=== PATIENT | male | born 1970 | race Caucasian/White ===

== ENCOUNTER 2019-06-28 21:53 | Emergency (ER) | payer SELFPAY ==
[~2019-06-28] VITALS: Ht 175.3 cm; Wt 113.4 kg
[~2019-06-28 21:53] MED LIST: AMLO5TAB2 PO; ASP81TEC PO; ATOR40TA PO
[2019-06-28 21:57] VITALS: BP 166/101
--- NOTE | 2019-06-28 22:14 | ED Chest Pain ---
General Chief Complaint: Chest Pain Stated Complaint: CHEST PAIN, LT ARM PAIN, DIZZY, SOB Source: patient, family History of Present Illness Date Seen by Provider: Jun 28, 2019 Time Seen by Provider: 21:54 Initial Comments 48-year-old male presenting with complaints of left-sided chest pain and shortness of breath that has been going on since Friday of last week. He has had intermittent chest pains off and on throughout the week. This has been worse with activity and exertion. He has a history of hypertension and high cholesterol but does not follow with anyone currently. He does not take any medications for this anymore either. He did have a heart catheter approximately 5 years ago down at [facility] and was told that he had 30-40% blockages but nothing that needed stenting. He has not continued to follow with anyone since then. He stopped taking blood pressure medication because he reports that when he rides his motorcycle or works on his motorcycle that is calming for him and helps his blood pressure come down, so he uses that in place of taking blood pressure medicine. Over the last week he has been having increasing episodes of this pain in the left side of his chest going up into his neck and shoulder and down the left arm. However tonight the episode came on after he was working on a vehicle and that was sharp in nature. With rest and take calm down but then he continues to have aching that has not gone away for him since around 6 or 6:30 PM. He did not try taking anything at home for the pain. Allergies and Home Medications Allergies Coded Allergies: No Known Drug Allergies (Unverified , 04/08/13) Home Medications Amlodipine Besylate 5 Mg Tablet, 5 MG PO DAILY, (Reported) Aspirin 81 Mg Tabec, 81 MG PO DAILY, (Reported) Atorvastatin Calcium 40 Mg Tablet, 40 MG PO HS, (Reported) Patient Home Medication List Home Medication List Reviewed: Yes Review of Systems Review of Systems Constitutional: No chills, No fever EENTM: No Symptoms Reported Respiratory: No Symptoms Reported Cardiovascular: See HPI, Chest Pain Gastrointestinal: No Symptoms Reported Genitourinary: No Symptoms Reported Musculoskeletal: no symptoms reported Skin: no symptoms reported Psychiatric/Neurological: No Symptoms Reported Endocrine: No Symptoms Reported Past Pxdkiol-Asrvmo-Tuaxdg Hx Past Med/Social Hx: Reviewed Nursing Past Med/Soc Hx Patient Social History Recent Foreign Travel: No Contact w/Someone Who Travel: No Past Medical History Surgeries: Yes Cardiac (heart cath 2013), Tonsillectomy Cardiac: Yes High Cholesterol, Hypertension Physical Exam Vital Signs Vital Signs - First Documented 06/28/19 21:57 Temp 98.9 Pulse 92 Resp 22 B/P (MAP) 166/101 (122) Pulse Ox 96 O2 Delivery Room Air Capillary Refill : Height, Weight, BMI Height: '" Weight: lbs. oz. kg; BMI Method: General Appearance: No Apparent Distress, WD/WN, Obese HEENT: PERRL/EOMI, Normal ENT Inspection, Pharynx Normal Neck: Full Range of Motion, Normal Inspection, Non Tender, Supple Respiratory: Chest Non Tender, Lungs Clear, Normal Breath Sounds, No Accessory Muscle Use, No Respiratory Distress Cardiovascular: Regular Rate, Rhythm, No Murmur, Normal Peripheral Pulses Gastrointestinal: Normal Bowel Sounds, No Pulsatile Mass, Non Tender, Soft Extremity: Normal Capillary Refill, Normal Inspection, Normal Range of Motion, Non Tender, No Calf Tenderness Neurologic/Psychiatric: Alert, Oriented x3, No Motor/Sensory Deficits, Normal Mood/Affect, nurse behavioral health care II-XII Norm as Tested Skin: Normal Color, Warm/Dry Progress/Results/Core Measures Results/Orders Lab Results Laboratory Tests Test 06/28/19 22:01 Range/Units White Blood Count 11.3 H 4.3-11.0 10^3/uL Red Blood Count 4.85 4.35-5.85 10^6/uL Hemoglobin 15.2 13.3-17.7 G/DL Hematocrit 44 40-54 % Mean Corpuscular Volume 90 80-99 FL Mean Corpuscular Hemoglobin 31 25-34 PG Mean Corpuscular Hemoglobin Concent 35 32-36 G/DL Red Cell Distribution Width 13.9 10.0-14.5 % Platelet Count 223 130-400 10^3/uL Mean Platelet Volume 10.1 7.4-10.4 FL Neutrophils (%) (Auto) 59 42-75 % Lymphocytes (%) (Auto) 34 12-44 % Monocytes (%) (Auto) 5 0-12 % Eosinophils (%) (Auto) 2 0-10 % Basophils (%) (Auto) 0 0-10 % Neutrophils # (Auto) 6.6 1.8-7.8 X 10^3 Lymphocytes # (Auto) 3.9 1.0-4.0 X 10^3 Monocytes # (Auto) 0.6 0.0-1.0 X 10^3 Eosinophils # (Auto) 0.2 0.0-0.3 10^3/uL Basophils # (Auto) 0.1 0.0-0.1 10^3/uL Prothrombin Time 12.8 12.2-14.7 SEC INR Comment 0.9 0.8-1.4 Activated Partial Thromboplast Time 29 24-35 SEC Sodium Level 139 135-145 MMOL/L Potassium Level 3.6 3.6-5.0 MMOL/L Chloride Level 98 98-107 MMOL/L Carbon Dioxide Level 23 21-32 MMOL/L Anion Gap 18 H 5-14 MMOL/L Blood Urea Nitrogen 13 7-18 MG/DL Creatinine 1.29 0.60-1.30 MG/DL Estimat Glomerular Filtration Rate 59 BUN/Creatinine Ratio 10 Glucose Level 142 H 70-105 MG/DL Calcium Level 10.0 8.5-10.1 MG/DL Corrected Calcium 9.6 8.5-10.1 MG/DL Magnesium Level 1.9 1.6-2.4 MG/DL Total Bilirubin 0.3 0.1-1.0 MG/DL Aspartate Amino Transf (AST/SGOT) 36 H 5-34 U/L Alanine Aminotransferase (ALT/SGPT) 59 H 0-55 U/L Alkaline Phosphatase 83 40-136 U/L Troponin I < 0.30 <0.30 NG/ML Pro-B-Type Natriuretic Peptide 29.7 <75.0 PG/ML Total Protein 7.1 6.4-8.2 GM/DL Albumin 4.5 3.2-4.5 GM/DL Lipase 81 H 8-78 U/L My Orders Orders - PEDRO PERERA MD Cbc With Automated Diff (06/28/19 22:07) Magnesium (06/28/19 22:07) Chest 1 View Ap/Pa Only (06/28/19 22:07) Ekg Tracing (06/28/19 22:07) Comprehensive Metabolic Panel (06/28/19 22:07) Protime With Inr (06/28/19 22:07) Partial Thromboplastin Time (06/28/19 22:07) O2 (06/28/19 22:07) Monitor-Rhythm Ecg Trace Only (8/19/19 22:07) Aspirin Chewable Tablet (Baby Aspirin Ch (06/28/19 22:15) Nitroglycerin 0.4 Mg Btl 25's (Nitrostat (06/28/19 22:15) Ed Iv/Invasive Line Start (06/28/19 22:07) Lipase (06/28/19 22:07) Troponin I (06/28/19 22:07) Probnp Fs (06/28/19 22:07) Ekg Tracing (06/28/19 22:52) Nitroglycerin Ointment (Nitrobid Ointme (06/28/19 23:46) Metoprolol Succinate (Xl) Tab (Toprol Xl (06/28/19 23:47) Medications Given in ED Current Medications Medications Dose Ordered Sig/Moni Route Start Time Stop Time Status Last Admin Dose Admin Aspirin 324 mg ONCE ONCE PO 06/28/19 22:15 06/28/19 22:16 DC 06/28/19 22:24 324 MG Nitroglycerin 0.4 mg UD PRN SL 06/28/19 22:15 06/28/19 22:24 0.4 MG Vital Signs/I&O 06/28/19 06/28/19 21:57 21:57 Temp 98.9 Pulse 92 Resp 22 B/P (MAP) 166/101 (122) Pulse Ox 96 O2 Delivery Room Air Room Air Progress Progress Note #1: Progress Note Check ECG with CXR, labs. ECG does not show acute ST elevation but has T wave flattening. Will give 324 mg of aspirin and NTG sublingual to help with aching in chest and his blood pressure while waiting on labs to see if there are any changes with his enzymes. Evaluate CXR for cardiomegaly or effusions or pathology of lungs since he is also a smoker. Progress Note #2: Progress Note His labs were not showing any elevation of his initial troponin. His CBC and chemistry were also stable. His pain did improve when he was given aspirin and sublingual nitroglycerin. He states that the pain went away. However the aching returned as the nitroglycerin wore off. He did have improved blood pressure while the nitroglycerin was in his system. Will look at admit for unstable angina since his pain does come on at rest and with activity. Pt agreed to admit but was asking about going outside to smoke. i advised him I could not allow that but that I could get him a nicotine patch. he refused the patch and stated he would just wait. He was willing to be admitted and go to [facility] for admit and cardiology eval. I spoke with Dr. Perez and he accepted the pt for admit Progress Note #3: Time: 01:00 Progress Note While I was dealing with a critical patient that required my attention at his bedside for medical management the pt told the nursing staff that he was leaving because he felt better and it was more important that he go to work. Despite the staffs best efforts to change his mind and explain the risks versus the benefits of being admitted or leaving against medical advice the patient still demanded to leave and refused to stay. he did not want to wait to have me speak with him any further. I was unable to step away from the critical patient as he was very sick and requiring acute medical management at the bedside. Initial ECG Impression Date: Jun 28, 2019 Initial ECG Impression Time: 21:56 Initial ECG Rate: 91 Initial ECG Rhythm: Normal Sinus Initial ECG Comparisson: No Previous ECG Available Comment Sinus rhythm with a heart rate 91 bpm. He has nonspecific T-wave flattening especially in the lateral leads. He has a IL interval of 134 ms. QT interval of 360 ms and a QT corrected interval of 443 ms. There is no acute ST elevation. He has no prior tracing available for comparison. Diagnostic Imaging Diagonstic Imaging: Xray Plain Films/CT/US/NM/MRI: chest Comments On my review of his 1 view CXR he had no definite infiltrate. No cardiomegaly or effusion. Reviewed: Reviewed by Me Departure Communication (Admissions) Time/Spoke to Admitting Phy: 00:[address] Perez for the Hospitalist service at 0009 and he accepted the pt for admit to [facility]. He was ok with the pt getting Aspirin, Metoprolol and Nitropaste. He did not feel it was necessary for Lovenox as the pt was pain free and would be seen with Cardiology in a few hours Impression Primary Impression: Left against medical advice Additional Impressions: Unstable angina Hypertension Qualified Codes: I10 - Essential (primary) hypertension Tobacco abuse Disposition: 07 AGAINST MEDICAL ADVICE Condition: Stable Admissions Decision to Admit Reason: Admit from ER (General) Decision to Admit/Date: Jun 29, 2019 Time/Decision to Admit Time: 00:09 Departure-Patient Inst. Referrals: DANA CLARK APRN (PCP) Primary Care Physician PEDRO PERERA MD Jun 28, 2019 22:14
[2019-06-28] MEDS ORDERED: ASPIRIN 81 MG CHEW (CHILDREN'S ASA) PO ONE (22:15)
[2019-06-28] MEDS ORDERED: NITROGLYCERIN 0.4 MG SL TABS BTL 25'S SL PRN (22:15)
[2019-06-28 22:16] LABS: HEMATOCRIT 44 % (40-54); HEMOGLOBIN 15.2 G/DL (13.3-17.7); MEAN CORPUSCULAR HEMOGLOBIN 31 PG (25-34); MEAN CORPUSCULAR HGB CONC 35 G/DL (32-36); MEAN CORPUSCULAR VOLUME 90 FL (80-99); MEAN PLATELET VOLUME 10.1 FL (7.4-10.4); PLATELET COUNT 223 10^3/uL (130-400); RED CELL DISTRIBUTION WIDTH 13.9 % (10.0-14.5); WHITE BLOOD COUNT 11.3 10^3/uL (4.3-11.0)
[2019-06-28 22:17] LABS: BASOPHILS # (AUTO) 0.1 10^3/uL (0.0-0.1); BASOPHILS % (AUTO) 0 % (0-10); EOSINOPHILS # (AUTO) 0.2 10^3/uL (0.0-0.3); EOSINOPHILS % (AUTO) 2 % (0-10); LYMPHOCYTES # (AUTO) 3.9 X 10^3 (1.0-4.0); LYMPHOCYTES % (AUTO) 34 % (12-44); MONOCYTES # (AUTO) 0.6 X 10^3 (0.0-1.0); MONOCYTES % (AUTO) 5 % (0-12); NEUTROPHILS # (AUTO) 6.6 X 10^3 (1.8-7.8); NEUTROPHILS % (AUTO) 59 % (42-75)
[2019-06-28 22:26] LABS: INR 0.9 (0.8-1.4); PROTHROMBIN TIME PATIENT 12.8 SEC (12.2-14.7)
[2019-06-28 22:42] LABS: POTASSIUM 3.6 MMOL/L (3.6-5.0)
[2019-06-28 22:43] LABS: ALBUMIN 4.5 GM/DL (3.2-4.5); BILIRUBIN,TOTAL 0.3 MG/DL (0.1-1.0); CREATININE SERUM 1.29 MG/DL (0.60-1.30); MAGNESIUM 1.9 MG/DL (1.6-2.4); TOTAL PROTEIN 7.1 GM/DL (6.4-8.2)
[2019-06-28] MEDS ORDERED: NITROGLYCERIN 2% OINT 1 GM UNIT DOSE PACKET TOP STA (23:46)
--- NOTE | 2019-06-29 01:00 | NUR ---
Patient pulled this RN into the room and advised that he wants to leave AMA. Patient states that he can't afford to miss work. This RN advises the patient of risks, up to and including , and benefits of inpatient treatment. Patient acknowledges verbally his understanding of risks and benefits. AMA papers are signed, IV is taken out, Nitro paste is taken off.
--- NOTE | 2019-06-29 08:30 | NUR ---
PATIENT DID NOT ARRIVE TO THE FLOOR, MED REC WAS UNABLE TO BE COMPLETED.
--- NOTE | 2019-06-29 08:34 | Diagnostic Imaging Report ---
INDICATION: Chest pain. Lungs are clear. The heart and vessels normal. No effusion or pneumothorax. IMPRESSION: No acute appearing abnormality. Dictated by: Dictated on workstation # [id number]
== END 2019-06-29 01:11 | disposition left against medical advice (07) ==
LOC: EDUNIT# 21:53 → ER FS 21:54 → 4TH 06-29 00:09 → UNDOADMOB 06-29 00:09 → INTOOBSV 06-29 08:04 → OBSVTOIN 06-29 08:04 → 4TH 06-29 08:30
DX: I20.0 Unstable angina (principal); I10 Essential (primary) hypertension; E78.00 Pure hypercholesterolemia, unspecified; F17.200 Nicotine dependence, unspecified, uncomplicated; Z91.14 Patient's other noncompliance with medication regimen; Z79.82 Long term (current) use of aspirin; Z95.9 Presence of cardiac and vascular implant and graft, unspecified; Z90.89 Acquired absence of other organs
CPT/HCPCS: 36415; 71045; 80053; 83690; 83735; 83880; 84484; 85025; 85610; 85730; 93005; 93041

== ENCOUNTER 2019-11-05 09:35 | Observation (INO) | payer MEDICAID ==
[~2019-11-05] VITALS: Ht 175.6 cm; Wt 110.4 kg
[2019-11-05] MEDS ORDERED: FAMOTIDINE 20MG/2ML IV (PEPCID) IV STA (09:58)
[2019-11-05] MEDS ORDERED: LIDOCAINE 2% VISCOUS 15 ML UDC PO ONE (10:00)
[2019-11-05] MEDS ORDERED: ASPIRIN 81 MG CHEW (CHILDREN'S ASA) PO ONE (10:00)
[2019-11-05] MEDS ORDERED: ANTACID SUSP 30 ML UDC (MYLANTA) PO ONE (10:00)
[2019-11-05 10:05] LABS: WHITE BLOOD COUNT 10.2 10^3/uL (4.3-11.0)
[2019-11-05 10:06] LABS: BASOPHILS # (AUTO) 0.1 10^3/uL (0.0-0.1); BASOPHILS % (AUTO) 1 % (0-10); EOSINOPHILS # (AUTO) 0.2 10^3/uL (0.0-0.3); EOSINOPHILS % (AUTO) 2 % (0-10); HEMATOCRIT 44 % (40-54); HEMOGLOBIN 15.3 G/DL (13.3-17.7); LYMPHOCYTES # (AUTO) 2.7 X 10^3 (1.0-4.0); LYMPHOCYTES % (AUTO) 26 % (12-44); MEAN CORPUSCULAR HEMOGLOBIN 31 PG (25-34); MEAN CORPUSCULAR HGB CONC 35 G/DL (32-36); MEAN CORPUSCULAR VOLUME 91 FL (80-99); MEAN PLATELET VOLUME 9.9 FL (7.4-10.4); MONOCYTES # (AUTO) 0.5 X 10^3 (0.0-1.0); MONOCYTES % (AUTO) 5 % (0-12); NEUTROPHILS # (AUTO) 6.7 X 10^3 (1.8-7.8); NEUTROPHILS % (AUTO) 66 % (42-75); PLATELET COUNT 225 10^3/uL (130-400); RED CELL DISTRIBUTION WIDTH 13.5 % (10.0-14.5)
--- NOTE | 2019-11-05 10:17 | ED Chest Pain ---
General Chief Complaint: Chest Pain Stated Complaint: CHEST PAIN; SOB Source: patient Exam Limitations: no limitations (SELENE GARCIA MED STUDENT) Source: patient Exam Limitations: no limitations (MADINA JIMENEZ MD) History of Present Illness Date Seen by Provider: Nov 05, 2019 Time Seen by Provider: 10:01 Initial Comments Pt ambulates into ED with CC of chest pain beginning one hour ago. Describes pain as constant pressure over left sternal border that radiates through to his shoulder blade. Has never experienced this pain before. At onset pain radiated to shoulder but lasted only a second. Denies fever, chills, diaphoresis, nausea, vomiting. Has an appointment with Dr. Lopez Isai. 2019 after another episode of chest pain that occurred Jun 28 2020, where patient left AMA to go back to work after resolution of pain. Timing/Duration: 1 hour Severity/Quality: severe, aching, pressure Location: substernal Radiation: arms, shoulders Activities at Onset: none Prior CP/Workup: angina, cardiac cath Modifying Factors: worse with movement ASA po RESEARCH LABORATORY MANAGER: No NTG SL RESEARCH LABORATORY MANAGER: No Associated Symptoms: No abdominal pain; back pain; No diaphoresis, No fever/chills, No headache, No heartburn, No nausea/vomiting; shortness of breath (SELENE GARCIA MED STUDENT) Timing/Duration: 1 hour Severity/Quality: severe, aching, pressure Location: substernal, central Radiation: shoulders (left), back (shoulder blade) Prior CP/Workup: angina, cardiac cath ASA po RESEARCH LABORATORY MANAGER: No NTG SL RESEARCH LABORATORY MANAGER: No Associated Symptoms: No diaphoresis, No nausea/vomiting; shortness of breath (MADINA JIMENEZ MD) Allergies and Home Medications Allergies Coded Allergies: No Known Drug Allergies (Unverified , 04/08/13) Home Medications Amlodipine Besylate 5 Mg Tablet, 5 MG PO DAILY, (Reported) Aspirin 81 Mg Tabec, 81 MG PO DAILY, (Reported) Atorvastatin Calcium 40 Mg Tablet, 40 MG PO HS, (Reported) Patient Home Medication List Home Medication List Reviewed: Yes (SELENE GARCIA MED STUDENT) Home Medication List Reviewed: Yes (MADINA JIMENEZ MD) Review of Systems Review of Systems Constitutional: No chills, No diaphoresis, No fever EENTM: No Eye Pain, No Ear Pain, No Nose Pain, No Throat Pain Respiratory: Cough (current smoker ), Shortness of Air Cardiovascular: See HPI, Chest Pain; Denies Palpitations Gastrointestinal: Denies Abdominal Pain, Denies Constipated, Denies Diarrhea, Denies Nausea, Denies Vomiting Genitourinary: Denies Discharge, Denies Incontinence, Denies Pain Musculoskeletal: No back pain, No joint pain Skin: No lesions, No lumps, No rash Psychiatric/Neurological: Denies Anxiety, Denies Depressed, Denies Headache (SELENE GARCIAMED STUDENT) Constitutional: see HPI Respiratory: See HPI Cardiovascular: Chest Pain; Denies Irregular Heart Rate, Denies Lightheadedness Gastrointestinal: No Symptoms Reported Musculoskeletal: see HPI, back pain; No neck pain (MADINA JIMENEZ MD) All Other Systems Reviewed Negative Unless Noted: Yes (MADINA JIMENEZ MD) Past Kmsnuvp-Ngspff-Pjrhkm Hx Past Med/Social Hx: Reviewed Nursing Past Med/Soc Hx (MADINA JIMENEZ MD) Patient Social History Alcohol Use: Occasionally Uses Recreational Drug Use: No Smoking Status: Current Everyday Smoker 2nd Hand Smoke Exposure: Yes Recent Foreign Travel: No Physical Abuse: No Sexual Abuse: No Mistreated: No Fear: No (SELENE GARCIA MED STUDENT) Seasonal Allergies Seasonal Allergies: No (SELENE GARCIA MED STUDENT) Past Medical History Surgeries: Yes Cardiac, Tonsillectomy Respiratory: No Cardiac: Yes High Cholesterol, Hypertension Neurological: No Genitourinary: No Gastrointestinal: No Musculoskeletal: No Endocrine: No HEENT: No Cancer: No Psychosocial: No Integumentary: No (SELENE GARCIA MED STUDENT) Family Medical History Reviewed Nursing Family Hx (MADINA JIMENEZ MD) CAD Under 55 Years Old (uncle at 39, multiple family members at age 50 with heart attack.) (MADINA JIMENEZ MD) Physical Exam Vital Signs Vital Signs - First Documented 11/05/19 09:40 Temp 35.5 Pulse 83 Resp 16 B/P (MAP) 148/94 (112) Pulse Ox 98 O2 Delivery Room Air (MADINA JIMENEZ MD) Vital Signs Capillary Refill : (SELENE GARCIAMED STUDENT) Height, Weight, BMI Height: 5'9.00" Weight: 250lbs. 0oz. [age]yo; BMI Method:Stated General Appearance: WD/WN, Mild Distress HEENT: Pharynx Normal, Moist Mucous Membranes Neck: Non Tender, Supple Respiratory: Chest Non Tender, Lungs Clear, Normal Breath Sounds, No Accessory Muscle Use, No Respiratory Distress Cardiovascular: Regular Rate, Rhythm, No Edema, No Gallop, No Murmur, Normal Peripheral Pulses, Other (auscultated gurgling at 5th intercostal space left sternal border ) Gastrointestinal: Normal Bowel Sounds, Soft, Tenderness (epigastric tenderness to palpation ) Extremity: No Calf Tenderness, No Pedal Edema Neurologic/Psychiatric: Alert, Oriented x3 Skin: Normal Color, Warm/Dry Lymphatic: No Adenopathy (anterior/posterior cervical, supra/infraclavicular ) (SELENE GARCIA,MED STUDENT) General Appearance: WD/WN, Mild Distress Neck: Non Tender, Supple Respiratory: Lungs Clear, Normal Breath Sounds Cardiovascular: Regular Rate, Rhythm, No Murmur Gastrointestinal: Soft, Tenderness (epigastric tenderness to palpation ) Extremity: No Calf Tenderness, No Pedal Edema Neurologic/Psychiatric: Alert, Oriented x3 Skin: Normal Color, Warm/Dry (MADINA JIMENEZ MD) Progress/Results/Core Measures Results/Orders Lab Results Laboratory Tests Test 11/05/19 09:50 11/05/19 09:55 11/05/19 11:50 Range/Units D-Dimer 0.20 0.00-0.49 UG/ML White Blood Count 10.2 4.3-11.0 10^3/uL Red Blood Count 4.86 4.35-5.85 10^6/uL Hemoglobin 15.3 13.3-17.7 G/DL Hematocrit 44 40-54 % Mean Corpuscular Volume 91 80-99 FL Mean Corpuscular Hemoglobin 31 25-34 PG Mean Corpuscular Hemoglobin Concent 35 32-36 G/DL Red Cell Distribution Width 13.5 10.0-14.5 % Platelet Count 225 130-400 10^3/uL Mean Platelet Volume 9.9 7.4-10.4 FL Neutrophils (%) (Auto) 66 42-75 % Lymphocytes (%) (Auto) 26 12-44 % Monocytes (%) (Auto) 5 0-12 % Eosinophils (%) (Auto) 2 0-10 % Basophils (%) (Auto) 1 0-10 % Neutrophils # (Auto) 6.7 1.8-7.8 X 10^3 Lymphocytes # (Auto) 2.7 1.0-4.0 X 10^3 Monocytes # (Auto) 0.5 0.0-1.0 X 10^3 Eosinophils # (Auto) 0.2 0.0-0.3 10^3/uL Basophils # (Auto) 0.1 0.0-0.1 10^3/uL Prothrombin Time 12.5 12.2-14.7 SEC INR Comment 0.9 0.8-1.4 Activated Partial Thromboplast Time 27 24-35 SEC Sodium Level 139 135-145 MMOL/L Potassium Level 3.8 3.6-5.0 MMOL/L Chloride Level 101 98-107 MMOL/L Carbon Dioxide Level 24 21-32 MMOL/L Anion Gap 14 5-14 MMOL/L Blood Urea Nitrogen 15 7-18 MG/DL Creatinine 1.38 H 0.60-1.30 MG/DL Estimat Glomerular Filtration Rate 55 BUN/Creatinine Ratio 11 Glucose Level 120 H 70-105 MG/DL Calcium Level 9.6 8.5-10.1 MG/DL Corrected Calcium 8.5-10.1 MG/DL Magnesium Level 2.0 1.6-2.4 MG/DL Total Bilirubin 0.3 0.1-1.0 MG/DL Aspartate Amino Transf (AST/SGOT) 32 5-34 U/L Alanine Aminotransferase (ALT/SGPT) 52 0-55 U/L Alkaline Phosphatase 114 40-136 U/L Myoglobin 75.8 10.0-92.0 NG/ML Troponin I < 0.30 < 0.30 <0.30 NG/ML Total Protein 7.2 6.4-8.2 GM/DL Albumin 4.7 H 3.2-4.5 GM/DL Lipase 66 8-78 U/L (MADINA JIMENEZ MD) My Orders Orders - MADINA JIMENEZ MD Cbc With Automated Diff (11/05/19 09:50) Magnesium (11/05/19 09:50) Chest 1 View Ap/Pa Only (11/05/19 09:50) Ekg Tracing (11/05/19 09:50) Comprehensive Metabolic Panel (11/05/19 09:50) Myoglobin Serum (11/05/19 09:50) Protime With Inr (11/05/19 09:50) Partial Thromboplastin Time (11/05/19 09:50) O2 (11/05/19 09:50) Monitor-Rhythm Ecg Trace Only (11/05/19 09:50) Lipid Panel (11/06/19 06:00) Aspirin Chewable Tablet (Baby Aspirin Ch (11/05/19 10:00) Ed Iv/Invasive Line Start (11/05/19 09:50) Lipase (11/05/19 09:50) Fibrin Degradation Products (11/05/19 09:50) Troponin I Fs (11/05/19 09:50) Lidocaine 2% Viscous 15 Ml (Xylocaine Vi (11/05/19 10:00) Antacid Suspension (Mylanta Suspension (11/05/19 10:00) Famotidine Injection (Pepcid Injection) (11/05/19 09:58) Nitroglycerin 0.4 Mg Btl 25's (Nitrostat (11/05/19 11:00) Ketorolac Injection (Toradol Injection) (11/05/19 10:53) Troponin I Fs (11/05/19 11:50) Nicotine Patch (Nicoderm Patch) (11/05/19 13:00) (MADINA JIMENEZ MD) Medications Given in ED Current Medications Medications Dose Ordered Sig/Moni Route Start Time Stop Time Status Last Admin Dose Admin Al Hydrox/Mg Hydrox/Simethicone 30 ml ONCE ONCE PO 11/05/19 10:00 11/05/19 10:01 DC 11/05/19 10:06 30 ML Aspirin 324 mg ONCE ONCE PO 11/05/19 10:00 11/05/19 10:01 DC 11/05/19 10:06 324 MG Lidocaine HCl 15 ml ONCE ONCE PO 11/05/19 10:00 11/05/19 10:01 DC 11/05/19 10:07 15 ML Nitroglycerin 0.4 mg UD PRN SL 11/05/19 11:00 11/05/19 11:09 0.4 MG (MADINA JIMENEZ MD) Vital Signs/I&O 11/05/19 11/05/19 11/05/19 09:40 10:30 12:41 Temp 35.5 Pulse 83 67 Resp 16 18 B/P (MAP) 148/94 (112) 125/81 (96) Pulse Ox 98 97 O2 Delivery Room Air Room Air (MADINA JIMENEZ MD) Progress Progress Note : Time: 10:20 Progress Note Seen evaluated. Initiated chest pain protocol. Ordered EKG, CXR, PT/INR, CBC, CMP, BNP, troponin, Mg, myoglobin, d-dimer and lipase. Administering 325 chewable ASA, GI cocktail and 20mg famotidine IV. (SELENE GARCIA,MED STUDENT) Progress Note : Progress Note Seen and evaluated the patient and agree with above except as indicated. Have directed the plan of care. Patient is here with acute onset of central to the left sternal border chest pain that radiates to the left shoulder blade. He has not had pain like this before although has been worked up for chest pain. R ecords review reveals that he had heart catheterization in 2012 with 30-40% blockage LAD. Seen earlier this year for chest pain and left AMA. He does have appointment with Dr. Lopez on November 25 at 9 AM. He has not taken anything for the pain. Does have strong family history and does smoke. Physical exam as above. Plan as above with chest pain order set and aspirin 324 mg by mouth. We will try GI cocktail and 20 mg of famotidine IV. 1100: Patient still having pain. Toradol 30 mg IV and nitroglycerin sublingual ordered. Patient's blood pressure currently 153/98 with heart rate is 75. No ectopy noted. Initial troponin was 0.30 and d-dimer was negative. At a minimum we will need to repeat his troponin evaluation as I do have concerns as this was not completely negative and is reasonable. This was discussed with patient and family who agree. Monitor patient. 1310: Repeat troponin negative. Initial troponin was actually less than 0.300 well. Laboratory reported error and has fixed on report. Patient still with some chest pressure that is very mild. He had the greatest relief from nitroglycerin earlier. Given his strong family history, we will admit for further evaluation. I discussed the case with Dr. Clay, who accepts patient in consultation. 1315 I have discussed the case with Dr. Olivarez as patient for admission, observation status. NicoDerm 21 mg patch ordered. Patient and family agree with plan. (MADINA JIMENEZ MD) Initial ECG Impression Date: Nov 05, 2019 Initial ECG Impression Time: 10:25 Initial ECG Rate: 85 Initial ECG Rhythm: Normal Sinus Initial ECG Intervals: Normal Initial ECG Impression: Nonspecific Changes (T wave flattening V5, V6) (SELENE GARCIA,MED STUDENT) Comment Sinus rhythm with nonspecific T wave abnormalities. No evidence of ST elevation AR. Normal axis. Similar to 06/28/19. Interpreted by me. (MADINA JIMENEZ MD) Diagnostic Imaging Diagonstic Imaging: Xray Plain Films/CT/US/NM/MRI: chest Comments [facility] [place], [place] NAME: VERO JEAN [facility] REC#: [id number] PT STATUS: REG ER : 1970 PHYSICIAN: MADINA JIMENEZ MD ADMIT DATE: 11/05/19/ER FS Draft Date of Exam:11/05/19 CHEST 1 VIEW AP/PA ONLY INDICATION: Chest pain. Time of exam 9:56 AM Correlation is made with prior chest from 06/28/2019. The heart size is normal. The pulmonary vascularity is unremarkable. The lungs are clear. No infiltrate, effusion or pneumothorax is detected. Impression: No acute cardiopulmonary process is detected. Dictated on workstation # [id number] Dict: 11/05/19 1024 Trans: 11/05/19 1026 [facility] [id number] Interpreted by: KEZIA CHI MD Electronically signed by: (SELENE GARCIA,MED STUDENT) Plain Films/CT/US/NM/MRI: chest (MADINA JIMENEZ MD) Departure Communication (Admissions) Time/Spoke to Admitting Phy: 13:15 Time/Spoke to Consulting Phy: 13:10 (MADINA JIMENEZ MD) Impression Primary Impression: Chest pain Qualified Codes: R07.9 - Chest pain, unspecified Disposition: ADMITTED INPATIENT Condition: Stable Admissions Decision to Admit Reason: Admit from ER (General) Decision to Admit/Date: Nov 05, 2019 Time/Decision to Admit Time: 13:10 (MADINA JIMENEZ MD) Departure-Patient Inst. Referrals: JESSICA BURKETT APRN (PCP) Primary Care Physician SELENE GARCIAMED STUDENT Nov 05, 2019 10:17 MADINA JIMENEZ MD Nov 05, 2019 11:01
--- NOTE | 2019-11-05 10:27 | Diagnostic Imaging Report ---
INDICATION: Chest pain. Time of exam 9:56 AM Correlation is made with prior chest from 06/28/2019. The heart size is normal. The pulmonary vascularity is unremarkable. The lungs are clear. No infiltrate, effusion or pneumothorax is detected. Impression: No acute cardiopulmonary process is detected. Dictated by: Dictated on workstation # [id number]
[2019-11-05 10:32] LABS: ALANINE AMINOTRANSFERASE 52 U/L (0-55); ALBUMIN 4.7 GM/DL (3.2-4.5); ALKALINE PHOSPHATASE 114 U/L (40-136); BILIRUBIN,TOTAL 0.3 MG/DL (0.1-1.0); BUN/CREATININE RATIO 11; CALCIUM 9.6 MG/DL (8.5-10.1); CARBON DIOXIDE 24 MMOL/L (21-32); CHLORIDE 101 MMOL/L (98-107); CREATININE SERUM 1.38 MG/DL (0.60-1.30); GFR ESTIMATED 55; GLUCOSE 120 MG/DL (70-105); LIPASE 66 U/L (8-78); POTASSIUM 3.8 MMOL/L (3.6-5.0); SODIUM 139 MMOL/L (135-145); TOTAL PROTEIN 7.2 GM/DL (6.4-8.2)
[2019-11-05 10:41] LABS: INR 0.9 (0.8-1.4); PROTHROMBIN TIME PATIENT 12.5 SEC (12.2-14.7)
[2019-11-05] MEDS ORDERED: KETOROLAC 30 MG/ML VIAL IVP STA (10:53)
[2019-11-05] MEDS ORDERED: NITROGLYCERIN 0.4 MG SL TABS BTL 25'S SL PRN ×2 (11:00→16:30)
[2019-11-05 12:41] VITALS: BP 125/81
[2019-11-05] MEDS ORDERED: NICOTINE 21 MG (NICODERM) PATCH TD ONE (13:00)
--- NOTE | 2019-11-05 13:49 | NUR ---
ATTEMPTED TO CALL REPORT TO 4TH FLOOR A THIS TIME.
--- NOTE | 2019-11-05 14:32 | NUR ---
VERO JEAN admitted to room Z4TH-2, with an admitting diagnosis of CHEST PAIN, on 11/05/19 from [facility] [place] via [facility], accompanied by EMS.VERO JEAN introduced to surroundings, call light, bed controls, phone, TV, temperature control, lights, meal times, smoking policy, visitor policy, side rail policy, bathrooms and showers. Patient Rights given to patient in the handbook. VERO JEAN verbalizes understanding that [facility] is not responsible for the loss or damage to any personal effects or valuables that are kept in the patients posession during their hospitalization. The following Patient Care Plans were discussed with the PT: Discharge Planning,ALT CARDIOPULM TISSUE PERF, PAIN, ACT INTOL, AND ANXIETY. VREO JEAN verbalizes understanding of Interdisciplinary Patient Education. Patient and/or family were informed about the Rapid Response Team and its purpose. CAME TO THE FLOOR WITH L AC SL IV SITE -- VOICED PRESSURE TO L UPPER CHEST 5-6 INCHES ABOVE NIPPLE
[2019-11-05 14:40] VITALS: BP 134/94
[2019-11-05] MEDS ORDERED: DIAZ5TAB3 PO (15:35)
[2019-11-05] MEDS ORDERED: ATOR20TA66 PO (15:35)
[2019-11-05] MEDS ORDERED: BUPR300T51 PO (15:35)
[2019-11-05] MEDS ORDERED: METO-387 PO (15:35)
[2019-11-05] MEDS ORDERED: HYDR-3816 PO (15:35)
[2019-11-05 15:46] VITALS: BP 129/84
[2019-11-05] MEDS ORDERED: ASPI-983 PO (15:56)
[2019-11-05] MEDS ORDERED: MULT1TAB69 PO (16:01)
--- NOTE | 2019-11-05 16:01 | NUR ---
SPOKE WITH THE PATIENT ABOUT HIS MEDICATIONS. HE HAD HIS BOTTLES WITH HIM EXCEPT FOR HIS MTV. I COMPARED THE BOTTLES HE HAS WITH THE EXT MED HX. HE STATES HE TAKES ASPIRIN 81MG DAILY AND A MTV DAILY OTC.
--- NOTE | 2019-11-05 16:07 | NUR ---
DR SPENCE ON FLOOR AND ORDERED A TROPIN NOW AND ONE IN AM -- PLANS TO DO RADIAL HEART CATH IN AM
[2019-11-05] MEDS ORDERED: CATHETER FLUSH 10 ML SYR IV PRN (16:30)
[2019-11-05] MEDS ORDERED: morphine INJ 4 MG/ML 1 ML (VIAL/SYRINGE) IV PRN (16:30)
[2019-11-05] MEDS ORDERED: ONDANSETRON 4 MG/2 ML (SDV) Z0FRAN IV PRN (16:30)
[2019-11-05] MEDS: NS IV 1000 ML 1,000 ML IV SCH (17:07)
--- NOTE | 2019-11-05 17:55 | Consultation-Cardiology ---
HPI-Cardiology Cardiology Consultation: Date of Consultation 11/05/19 Date of Admission Attending Physician Ruby Jarvis MD Admitting Physician Markus Jesus Aprn Consulting Physician Reji CLAY MD HPI: Time Seen by a Provider: 15:00 Chief Complaint: Chest pain This is a 49-year-old gentleman with history of active smoking and significant premature family history in the family. History of hypertension and hyperlipidemia. He presents with chest pain for one hour. Substernal. Pressure-like sensation. Radiates to the left shoulder. No exacerbating or relieving factors. Moderate intensity. No other cardiac symptoms. Improved with nitroglycerin however not completely gone. He's had coronary angiography 6 years ago which showed mild LAD disease. Review of Systems-Cardiology Review of Systems Constitutional: As described under HPI; No As described under HPI, No no symptoms reported, No chills, No fever, No lightheadedness Eyes: No As described under HPI, No no symptoms reported, No blindness, No blurred vision, No contact lenses, No drainage, No decreased acuity, No foreign body sensation, No pain, No vision change Ears/Nose/Throat: No As described under HPI, No no symptoms reported, No chronic hearing loss, No ear discharge, No ear pain, No nasal drainage, No ulcerations Respiratory: No no symptoms reported; As described under HPI; No As described under HPI, No cough, No orthopnea, No shortness of breath, No SOB with excertion Cardiovascular: No no symptoms reported; As described under HPI; No As described under HPI; chest pain; No edema, No irregular heart rate, No lightheadedness, No palpitations Gastrointestinal: No no symptoms reported, No As described under HPI, No abdomen distended, No abdominal pain, No blood streaked bowels, No constipation, No diarrhea, No nausea, No vomiting, No stool coloration changes Genitourinary: No As described under HPI, No burning, No dysuria, No discharge, No frequency, No flank pain, No hematuria, No urgency Skin: No rash, No skin related problems, No ulcerations Psychiatric/Neurological: No anxiety, No depression, No seizure, No focal weakness, No syncope Hematologic: No bleeding abnormalities All Other Systems Reviewed Negative Unless Noted: Yes PDD-Damguc-Cpiswz Hx Patient Social History Alcohol Use: Occasionally Uses Recreational Drug Use: No Smoking Status: Current Everyday Smoker 2nd Hand Smoke Exposure: Yes Recent Foreign Travel: No Recent Infectious Disease Expo: No Hospitalization with Isolation: Denies Physical Abuse Screen: No Sexual Abuse: No Past Medical History PMH As described under Assessment. Allergies and Home Medications Allergies Coded Allergies: No Known Drug Allergies (Unverified , 04/08/13) Home Medications Aspirin 81 Mg Tablet.dr, 81 MG PO HS, (Reported) Atorvastatin Calcium 20 Mg Tablet, 20 MG PO HS, (Reported) Bupropion HCl 300 Mg Tab.er.24h, 300 MG PO HS, (Reported) Diazepam 5 Mg Tablet, 5 MG PO HS PRN for ANXIETY, (Reported) Hydrocodone/Acetaminophen 1 Each Tablet, 1 TAB PO Q6H PRN for PAIN-MODERATE (5- 7), (Reported) Metoprolol Succinate 25 Mg Tab.er.24h, 25 MG PO HS, (Reported) Multivitamin 1 Each Tablet, 1 TAB PO HS, (Reported) Patient Home Medication List Home Medication List Reviewed: Yes Physical Exam-Cardiology Physical Exam Vital Signs/I&O 11/05/19 11/05/19 11/05/19 11/05/19 09:40 10:30 12:41 13:24 Temp 35.5 36.2 Pulse 83 67 72 Resp 16 18 18 B/P (MAP) 148/94 (112) 125/81 (96) 118/77 Pulse Ox 98 97 99 O2 Delivery Room Air Room Air Room Air 11/05/19 11/05/19 11/05/19 11/05/19 14:35 14:40 15:46 15:47 Temp 36.3 36.6 Pulse 64 69 79 Resp 20 18 B/P (MAP) 134/94 129/84 (99) Pulse Ox 98 98 100 O2 Delivery Room Air Room Air Room Air Capillary Refill : Less Than 3 Seconds Constitutional: appears stated age, AAO x 3; No apparent distress; well- developed, well-nourished HEENT: PERRL; No discharge; hearing is well preserved, oral hygience is good; No ulceration, No xanthelasmas are seen Neck: No carotid bruit; carotid pulses are 2 + bilaterally Respiratory: chest is bilaterally symmetric, lungs clear to auscultation Cardiovascular: regular rate-rhythm, S1 and S2 Gastrointestinal: soft, audible bowel sounds; No spleenomegaly Extremities: normal range of motion, non-tender, normal inspection; No clubbing, No cyanosis; no lower extremity edema bilateral; No significant edema Neurologic/Psychiatric: no motor/sensory deficits, alert, normal mood/affect, oriented x 3, power is 5/5 both on sides Skin: normal color; No rash, No ulcerations Data Review Labs Laboratory Tests 11/05/19 09:50: D-Dimer 0.20 11/05/19 09:55: White Blood Count 10.2, Red Blood Count 4.86, Hemoglobin 15.3, Hematocrit 44, Mean Corpuscular Volume 91, Mean Corpuscular Hemoglobin 31, Mean Corpuscular Hemoglobin Concent 35, Red Cell Distribution Width 13.5, Platelet Count 225, Mean Platelet Volume 9.9, Neutrophils (%) (Auto) 66, Lymphocytes (%) (Auto) 26, Monocytes (%) (Auto) 5, Eosinophils (%) (Auto) 2, Basophils (%) (Auto) 1, Neutrophils # (Auto) 6.7, Lymphocytes # (Auto) 2.7, Monocytes # (Auto) 0.5, Eosinophils # (Auto) 0.2, Basophils # (Auto) 0.1, Prothrombin Time 12.5, INR Comment 0.9, Activated Partial Thromboplast Time 27, Sodium Level 139, Potassium Level 3.8, Chloride Level 101, Carbon Dioxide Level 24, Anion Gap 14, Blood Urea Nitrogen 15, Creatinine 1.38H, Estimat Glomerular Filtration Rate 55, BUN/Creati nine Ratio 11, Glucose Level 120H, Calcium Level 9.6, Corrected Calcium , Magnesium Level 2.0, Total Bilirubin 0.3, Aspartate Amino Transf (AST/SGOT) 32, Alanine Aminotransferase (ALT/SGPT) 52, Alkaline Phosphatase 114, Myoglobin 75.8, Troponin I < 0.30, Total Protein 7.2, Albumin 4.7H, Lipase 66 11/05/19 11:50: Troponin I < 0.30 11/05/19 16:15: Troponin I < 0.028 ECG Impression ECG Initial ECG Rhythm: Normal Sinus Initial ECG Impression: Normal A/P-Cardiology Assessment/Admission Diagnosis Chest pain, Hypertension, Hyperlipidemia, Active smoking. Plan Chest pain, serial troponin. Echocardiogram. NPO after midnight. Likely coronary angiography in the morning. Hypertension, continue Cardizem. Hyperlipidemia, continue statin therapy. Active smoking. Smoking cessation was strongly recommended. Thank you for your consultation. Please call me if you have any questions. Eugenia Clay MD, FACP, FACC, FSCAI, FHRS, CCDS Interventional Cardiology Cardiac Electrophysiology Vascular Medicine and Endovascular Interventions Clinical Quality Measures AMI/AHF: ASA po Prior to arrival: No DVT/VTE Risk/Contraindication: Risk Factor Score Per Nursin RFS Level Per Nursing on Admit: 1=Low/No VTE PPX Reji CLAY MD Nov 05, 2019 17:55
[2019-11-05 19:20] VITALS: BP 130/73
[2019-11-05] MEDS ORDERED: NON-FORMULARY MEDICATION 1 EA EA (Bupropion HCl (Bupropion Xl) 300 MG) PO SCH (21:00)
[2019-11-05] MEDS: DIAZEPAM 5 MG (VALIUM) TABLET PO PRN (21:36)
[2019-11-05] MEDS: buPROPion SR 150 MG (WELLBUTRIN SR) TAB PO SCH (21:39)
[2019-11-06] VITALS (16 sets, daily range): BP systolic 113–151; BP diastolic 62–99
[2019-11-06] MEDS: NS IV 1000 ML 1,000 ML IV SCH ×3 (02:54→13:30)
[2019-11-06 05:35] LABS: BASOPHILS % (AUTO) 0 % (0-10); EOSINOPHILS # (AUTO) 0.1 10^3/uL (0.0-0.3); EOSINOPHILS % (AUTO) 2 % (0-10); HEMATOCRIT 43 % (40-54); HEMOGLOBIN 14.8 G/DL (13.3-17.7); LYMPHOCYTES # (AUTO) 2.6 X 10^3 (1.0-4.0); LYMPHOCYTES % (AUTO) 32 % (12-44); MEAN CORPUSCULAR HEMOGLOBIN 31 PG (25-34); MEAN CORPUSCULAR HGB CONC 35 G/DL (32-36); MEAN CORPUSCULAR VOLUME 90 FL (80-99); MEAN PLATELET VOLUME 10.1 FL (7.4-10.4); MONOCYTES # (AUTO) 0.4 X 10^3 (0.0-1.0); MONOCYTES % (AUTO) 5 % (0-12); NEUTROPHILS % (AUTO) 61 % (42-75); PLATELET COUNT 186 10^3/uL (130-400); RED CELL DISTRIBUTION WIDTH 14.1 % (10.0-14.5); WHITE BLOOD COUNT 8.2 10^3/uL (4.3-11.0)
[2019-11-06 05:57] LABS: ALANINE AMINOTRANSFERASE 52 U/L (0-55); ALBUMIN 3.9 GM/DL (3.2-4.5); ALKALINE PHOSPHATASE 93 U/L (40-136); BILIRUBIN,TOTAL 0.3 MG/DL (0.1-1.0); BUN/CREATININE RATIO 14; CALCIUM 9.1 MG/DL (8.5-10.1); CARBON DIOXIDE 20 MMOL/L (21-32); CHLORIDE 110 MMOL/L (98-107); CHOLESTEROL 128 MG/DL (< 200); CREATININE SERUM 1.17 MG/DL (0.60-1.30); GFR ESTIMATED > 60; GLUCOSE 122 MG/DL (70-105); HDL CHOLESTEROL 25 MG/DL (40-60); POTASSIUM 4.2 MMOL/L (3.6-5.0); SODIUM 142 MMOL/L (135-145); TOTAL PROTEIN 6.1 GM/DL (6.4-8.2); TRIGLYCERIDES 242 MG/DL (<150); VLDL CHOLESTEROL 48 MG/DL (5-40)
[2019-11-06] MEDS: buPROPion SR 150 MG (WELLBUTRIN SR) TAB PO SCH ×2 (09:00→21:07)
[2019-11-06] MEDS ORDERED: ASPIRIN E.C. 81 MG (ECOTRIN) TAB PO SCH ×2 (09:00→21:00)
[2019-11-06] MEDS ORDERED: HEParin 1000 UNIT/ML (10ML VIAL) FOR BOLUS ONE (10:43)
[2019-11-06] MEDS ORDERED: LIDOCAINE 1% INJ 20 ML 20 ML VIAL ONE (10:43)
[2019-11-06] MEDS ORDERED: MIDAZOLAM 5 MG/5 ML (VERSED) VIAL ONE (10:43)
[2019-11-06] MEDS ORDERED: fentaNYL INJECTION 100 MCG/2 ML AMP ONE ×2 (10:43→12:01)
[2019-11-06] MEDS ORDERED: NS IV 1000 ML 2,000 ML ONE (10:44)
--- NOTE | 2019-11-06 11:30 | NUR ---
PT TAKEN OFF FLOOR AT THIS TIME FOR PROCEDURE.
[2019-11-06] MEDS ORDERED: MIDAZOLAM 2 MG/2 ML (VERSED) VIAL ONE (11:50)
[2019-11-06] MEDS ORDERED: ASPIRIN 81 MG CHEW (CHILDREN'S ASA) ONE (11:53)
[2019-11-06] MEDS ORDERED: TICAGRELOR 90 MG TABLET (BRILINTA) PO ONE (11:53)
[2019-11-06] MEDS ORDERED: NITRO DRIP 25000 MCG/D5W 250 ML IV ONE (11:58)
--- NOTE | 2019-11-06 12:13 | History & Physical-Hospitalist ---
History of Present Illness HPI/Chief Complaint this is a 49-year-old white male with multiple risk factors for early heart disease that presents with a several month history of intermittent left chest pain. It is oftentimes exertional but can occur at rest. The patient had not sought further evaluation for it because of lack of insurance. He now presents with the left-sided chest pain with occasional radiation to his left shoulder. He does smoke tobacco, has a history of hypertension, hyperlipidemia, borderline diabetes, and a strong family history of early heart disease.at the time of my interview this morning he is getting ready to go to heart catheter as he has been seen and evaluated by . he continues to complain of some mild discomfort this morning. Other than some small Q's in his inferior leads the EKG shows no acute process. Source: patient Exam Limitations: no limitations Date Seen 11/06/19 Time Seen by a Provider: 11:30 Attending Physician Ruby Jarvis MD PCP Markus Jesus Aprn Referring Physician Date of Admission Nov 05, 2019 at 13:41 Home Medications & Allergies Home Medications Reviewed patient Home Medication Reconciliation performed by pharmacy medication reconciliations optical lab technician and/or nursing. Patients Allergies have been reviewed. 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) Alcohol Use: Occasionally Uses Recreational Drug Use: No Smoking Status: Current Everyday Smoker 2nd Hand Smoke Exposure: Yes Physical Abuse Screen: No Sexual Abuse: No Recent Foreign Travel: No Contact w/other who traveled: No Recent Infectious Disease Expo: No Seasonal Allergies Seasonal Allergies: No Past Medical History Surgeries: Cardiac, Tonsillectomy Cardiac: High Cholesterol, Hypertension Endocrine: Diabetes, Non-Insulin dep Family History Reviewed Nursing Family Hx CAD Under 55 Years Old (uncle at 39, multiple family members at age 50 with heart attack.) Review of Systems Constitutional: see HPI EENTM: no symptoms reported Respiratory: no symptoms reported Cardiovascular: chest pain Gastrointestinal: no symptoms reported Genitourinary: no symptoms reported Musculoskeletal: no symptoms reported Skin: no symptoms reported Psychiatric/Neurological: No Symptoms Reported Physical Exam Physical Exam Vital Signs Vital Signs - First Documented 11/05/19 09:40 Temp 35.5 Pulse 83 Resp 16 B/P (MAP) 148/94 (112) Pulse Ox 98 O2 Delivery Room Air Capillary Refill : Less Than 3 Seconds Height, Weight, BMI Height: 5'9.00" Weight: 250lbs. 0oz. [id number]; 35.80 BMI Method:Stated General Appearance: No Apparent Distress, WD/WN HEENT: PERRL/EOMI, Normal ENT Inspection Neck: Full Range of Motion, Normal Inspection, Non Tender, Supple Respiratory: Chest Non Tender, Lungs Clear, Normal Breath Sounds, No Accessory Muscle Use, No Respiratory Distress Cardiovascular: Regular Rate, Rhythm, No Edema, No Gallop, No JVD, No Murmur, Normal Peripheral Pulses Gastrointestinal: Normal Bowel Sounds, Non Tender, Soft Rectal: Deferred Back: Normal Inspection Extremity: Normal Capillary Refill, Normal Range of Motion, Non Tender, No Calf Tenderness Neurologic/Psychiatric: Alert, Oriented x3, No Motor/Sensory Deficits, Normal Mood/Affect Skin: Normal Color, Warm/Dry Lymphatic: No Adenopathy Results Results/Procedures Labs Laboratory Tests 11/05/19 09:55 11/06/19 05:16 Patient resulted labs reviewed. Assessment/Plan Admission Diagnosis chest pain Hypertension Hyperlipidemia Strong family history of her early heart disease Borderline diabetes Plan to go to heart catheter for further evaluation Admission Status: Observation Clinical Quality Measures AMI/AHF: ASA po Prior to arrival: No DVT/VTE Risk/Contraindication: Risk Factor Score Per Nursin RFS Level Per Nursing on Admit: 1=Low/No VTE PPX Copy Copies To 1: [facility]/RUBY MOSQUEDA MD Nov 06, 2019 12:13
--- NOTE | 2019-11-06 12:21 | Cardiology Progress Note ---
Cardiology SOAP Progress Note Subjective: Mild chest discomfort. Objective: I&O/Vital Signs 11/06/19 11/06/19 11/06/19 11/06/19 01:00 03:45 07:00 07:26 Temp 36.2 37.0 Pulse 75 74 75 70 Resp 8 18 B/P (MAP) 133/85 (101) 128/82 (97) Pulse Ox 96 100 O2 Delivery Room Air Room Air 11/06/19 11/06/19 09:00 11:28 Temp 36.2 Pulse 74 Resp 18 B/P (MAP) 137/92 (107) Pulse Ox 100 98 O2 Delivery Room Air Room Air 11/06/19 00:00 Intake Total 1180 ml Balance 1180 ml Weight (Pounds): 250 Weight (Ounces): 0 Weight (Calculated Kilograms): 113.030704 Constitutional: appears stated age, AAO x 3; No apparent distress; well- developed, well-nourished Respiratory: chest is bilaterally symmetric, lungs clear to auscultation Cardiovascular: regular rate-rhythm, S1 and S2 Gastrointestional: soft, audible bowel sounds; No spleenomegaly Extremities: normal range of motion, non-tender, normal inspection; No clubbing, No cyanosis; no lower extremity edema bilateral; No significant edema Neurologic/Psychiatric: no motor/sensory deficits, alert, normal mood/affect, oriented x 3, power is 5/5 both on sides Skin: normal color; No rash, No ulcerations Results/Procedures: Labs Laboratory Tests 11/05/19 16:15: Troponin I < 0.028 11/06/19 05:16: Troponin I < 0.028, White Blood Count 8.2, Red Blood Count 4.73, Hemoglobin 14.8, Hematocrit 43, Mean Corpuscular Volume 90, Mean Corpuscular Hemoglobin 31, Mean Corpuscular Hemoglobin Concent 35, Red Cell Distribution Width 14.1, Platelet Count 186, Mean Platelet Volume 10.1, Neutrophils (%) (Auto) 61, Lymphocytes (%) (Auto) 32, Monocytes (%) (Auto) 5, Eosinophils (%) (Auto) 2, Basophils (%) (Auto) 0, Neutrophils # (Auto) 5.0, Lymphocytes # (Auto) 2.6, Monocytes # (Auto) 0.4, Eosinophils # (Auto) 0.1, Basophils # (Auto) 0.0, Sodium Level 142, Potassium Level 4.2, Chloride Level 110H, Carbon Dioxide Level 20L, Anion Gap 12, Blood Urea Nitrogen 16, Creatinine 1.17, Estimat Glomerular Filtration Rate > 60, BUN/Creatinine Ratio 14, Glucose Level 122H, Calcium Level 9.1, Corrected Calcium 9.2, Total Bilirubin 0.3, Aspartate Amino Transf (A ST/SGOT) 28, Alanine Aminotransferase (ALT/SGPT) 52, Alkaline Phosphatase 93, Total Protein 6.1L, Albumin 3.9, Triglycerides Level 242H, Cholesterol Level 128, LDL Cholesterol Direct 76, VLDL Cholesterol 48H, HDL Cholesterol 25L A/P: Assessment/Dx: Chest pain, Hypertension, Hyperlipidemia, Active smoking. Plan: Unstable angina, serial troponin negative. Echocardiogram. NPO after midnight. Likely coronary angiography this morning. Hypertension, continue Cardizem. Hyperlipidemia, continue statin therapy. Active smoking. Smoking cessation was strongly recommended. Thank you for your consultation. Please call me if you have any questions. Eugenia Clay MD, FACP, FACC, FSCAI, FHRS, CCDS Interventional Cardiology Cardiac Electrophysiology Vascular Medicine and Endovascular Interventions Clinical Quality Measures AMI/AHF: ASA po Prior to arrival: Reji Alfaro MD Nov 06, 2019 12:21
--- NOTE | 2019-11-06 12:22 | Cardiac Procedure Note-CS/ASA ---
Pre-Procedure Note Pre-Op Procedure Note H&P Reviewed The H&P was reviewed, patient examined and no changes noted. Date H&P Reviewed: Nov 06, 2019 Time H&P Reviewed: 10:30 Conscious Sedation Pre-Proced Time 10:30 ASA Score 3 For ASA 3 and 4: Consider anesthesia and medical clearance. Also, for patients with a history of failed moderate sedation consider anesthesia. Airway Lungs Heart ASA score ASA 1: a normal healthy patient ASA 2: a patient with a mild systemic disease (mid diabetes, controlled hypertension, obesity ASA 3: a patient with a severe systemic disease that limits activity (angina, COPD, prior Myocardial infarction) ASA 4: a patient with an incapacitating disease that is a constant threat to life (CHF, renal failure) ASA 5: a moribund patient not expected to survive 24 hrs. (ruptured aneurysm) ASA 6: a declared brain- patient whose organs are being harvested. For emergent operations, add the letter E after the classification Mallampati Classification Grade 1 Sedation Plan Analgesia, Amnesia, Plan communicated to team members, Discussed options with patient/fam, Discussed risks with patient/fam The patient is an appropriate candidate to undergo the planned procedure, sedation, and anesthesia. The patient immediately re-assessed prior to indication. Reji SPENCE MD Nov 06, 2019 12:22
--- NOTE | 2019-11-06 12:27 | Coronary Angiography & PCI ---
Coronary Angiography & PCI DATE OF PROCEDURE: 11/06/19 INDICATION: Unstable angina. PREOPERATIVE DIAGNOSIS: Unstable angina. POSTOPERATIVE DIAGNOSIS: Severe mid RCA stenosis, treated successfully with one drug-eluting stent. HISTORY: This is a 49-year-old gentleman with significant history of premature CAD and active smoking. He presents with prolonged episode of chest pain. Serial troponin were negative. Working diagnosis was unstable angina. Therefore, the patient was scheduled for coronary angiography. PROCEDURES PERFORMED: 1.Coronary angiography. 2.Left heart catheterization. 3.PCI to the mid RCA. COMPLICATIONS: None. SPECIMENS: None. ESTIMATED BLOOD LOSS: 10 mL ANESTHESIA: Conscious sedation ANTICOAGULATION: IV heparin CONTRAST: 96 mL. FLUOROSCOPY: 6.0 minutes. FLOUROSCOPY DOSE: 1071 mgy. PROCEDURE DETAILS: The patient is a 49 male and was brought to the casting house laborer after informed consent was taken. All the risks and complications were explained in detail; this included the risk of bleeding, vascular damage, stroke, LA and even . The patient was draped and prepped in the usual sterile fashion. Russ's test was abnormal. Access was gained in the right femoral artery with a 5 Polish sheath. Coronary angiography and left heart catheterization was performed with a JR4 and JL4 catheter. FINDINGS: 1.Left main: Patent. 2.LAD: Luminal irregularities. 3.Left circumflex artery: Mild mid left circumflex artery disease. No focal stenosis is noted. 4.RCA: Severe mid RCA stenosis. Stenosis severity 95 percent. 5.Left heart catheterization: LV pressure 124/8 mmHg. LVEDP 15 mmHg. Aortic pressure 120/80 mmHg. Normal LV function with no wall motion abnormalities. No gradient across the aortic valve. RECOMMENDATIONS: 1. PCI to the mid RCA is recommended. INTERVENTION DETAILS: JR4 guide catheter, whisper extra-support guidewire, IV heparin for anticoagulation. ACT was over 230 seconds. Aspirin and Brilinta bolus was given before the intervention. The lesion was crossed with the whisper wire. The tip of the wire was placed in the proximal PDA. Direct stenting was done with a Xience Shana 3 x 12 mm drug-eluting stent at 16 armida for 32 seconds. Postdilatation was done with NC Quantum 3.5 x 8 mm balloon at 14 armida for 10 seconds. The balloon was slightly pulled back and another inflation done at 16 armida for 16 seconds. Excellent results. No residue stenosis with SALLY-3 flow distally. The patient tolerated the procedure well and did not have any complication. Right femoral artery was closed with a minx device. CONCLUSIONS: 1. Severe one vessel RCA disease treated successfully with drug-eluting stent. 2. Dual antiplatelet therapy for at least 1 year. Aggressive secondary prevention for atherosclerotic heart disease. 3. IV fluids. Eugenia Clay MD, FACP, FACC, [facility] Interventional Cardiology Reji CLAY MD Nov 06, 2019 12:26
[2019-11-06] MEDS ORDERED: PATIENT MAY USE OWN MEDS, ALL PO SCH (12:30)
--- NOTE | 2019-11-06 12:35 | NUR ---
pt transferred to [facility] via bed w/ laborer cook house staff.
[2019-11-06] MEDS: ACETAMINOPHEN 325 MG TABLET PO PRN ×2 (13:28→21:09)
--- NOTE | 2019-11-06 16:45 | NUR ---
PT TRANSFERRED BACK TO ROOM 414 FROM ICU. REPORT RECEIVED FROM ANDREA HORTON. PT AT SIDE. GROIN SITE CHECKED. VS OBTAINED. PT VOICING REQUESTING TO LEAVE. PT NOTIFIED OF DR FLEMING OF STAYING [facility].
--- NOTE | 2019-11-06 16:45 | NUR ---
pt transferred back to room 414 via bed w/ staff/so/personal belongings. bedside report given to alana beard. no questions/concerns voiced.
[2019-11-06] MEDS: TICAGRELOR 90 MG TABLET (BRILINTA) PO SCH (21:08)
[2019-11-06] MEDS: DIAZEPAM 5 MG (VALIUM) TABLET PO PRN (21:12)
[2019-11-07] MEDS: NS IV 1000 ML 1,000 ML IV SCH ×2 (02:47→09:05)
[2019-11-07 04:00] VITALS: BP 116/74
[2019-11-07 06:00] LABS: HEMOGLOBIN 14.3 G/DL (13.3-17.7); MEAN PLATELET VOLUME 9.8 FL (7.4-10.4); RED CELL DISTRIBUTION WIDTH 14.2 % (10.0-14.5)
[2019-11-07 06:22] LABS: BUN/CREATININE RATIO 10; CALCIUM 8.6 MG/DL (8.5-10.1); CARBON DIOXIDE 19 MMOL/L (21-32); CHLORIDE 112 MMOL/L (98-107); CREATININE SERUM 1.11 MG/DL (0.60-1.30); GFR ESTIMATED > 60; GLUCOSE 113 MG/DL (70-105); POTASSIUM 3.9 MMOL/L (3.6-5.0); SODIUM 142 MMOL/L (135-145)
[2019-11-07 08:02] VITALS: BP 144/84
[2019-11-07] MEDS ORDERED: lisINopril 10 MG (PRINIVIL) TABLET PO SCH (09:00)
[2019-11-07] MEDS ORDERED: ASPIRIN E.C. 81 MG (ECOTRIN) TAB PO SCH (09:00)
[2019-11-07] MEDS: TICAGRELOR 90 MG TABLET (BRILINTA) PO SCH (09:05)
[2019-11-07] MEDS: buPROPion SR 150 MG (WELLBUTRIN SR) TAB PO SCH (09:05)
[2019-11-07 11:56] VITALS: BP 155/93
--- NOTE | 2019-11-07 12:00 | NUR ---
PATIENT WANTING TO GO HOME, BP 157/98, DENIES CHEST PAIN BUT STATES HE HAS A NAGGING IN HIS LEFT CHEST, DR ROACH HERE, DR SPENCE NOTIFIED OF ELEVATED BLOOD PRESSURE.
[2019-11-07 12:15] VITALS: BP 157/98
[2019-11-07] MEDS ORDERED: lisINopril 10 MG (PRINIVIL) TABLET PO ONE (12:15)
--- NOTE | 2019-11-07 12:15 | NUR ---
BP RECHECKED, BP 138/87, LISINOPRIL EXTRA DOES HELD AND DR SPENCE NOTIFIED,
--- NOTE | 2019-11-07 13:00 | NUR ---
IV DC, DENIES PAIN OR SOB AT THIS TIME, RIGHT GROIN SITE WITHOUT BLEEDING OR HEMATOMA, DISCHARGE INSTRUCTIONS GIVEN, PRESCRIPTIONS GIVEN, VERBALIZED UNDERSTANDING, INSTRUCTED TO MAKE FOLLOW UP APPOINTMENT WITH DR SPENCE IN 2 WEEKS.
[2019-11-07] MEDS ORDERED: TICA90TA PO (13:33)
[2019-11-07] MEDS ORDERED: ATOR80TA76 PO (13:33)
[2019-11-07] MEDS ORDERED: LISI10TA2 PO (13:33)
--- NOTE | 2019-11-07 13:35 | Discharge Inst-Cardiology ---
Discharge Inst-Cardiac Problems Reviewed?: Yes Discharge Medications New, Converted or Re-Newed RX: RX Given to Pt/Family Patient Instructions Patient Instructions: follow-up with as he instructs Activity & Diet Discharge Diet: Cardiac Diet CM ROACH MD Nov 07, 2019 13:35
--- NOTE | 2019-11-07 13:39 | Discharge Summary ---
Discharge Summary Hospital Course Was the Problem List Reviewed?: Yes Hospital Course Date of Admission: Nov 05, 2019 at 13:41 Admission Diagnosis : Family Physician/Provider: Date of Discharge: 11/07/19 Discharge Diagnosis: [unstable angina Coronary artery disease status post stent to RCA Hyperlipidemia Hypertension Tobaccoism ] Hospital Course: [49 year old white male admitted with chest pain. Cardiac enzymes were negative. Patient underwent heart catheter with stenting to the mid RCA. Pa ramiro tolerated procedure well and without complication. ] Labs and Pending Lab Test: Laboratory Tests 11/07/19 05:34: White Blood Count 8.0, Red Blood Count 4.57, Hemoglobin 14.3, Hematocrit 41, Mean Corpuscular Volume 90, Mean Corpuscular Hemoglobin 31, Mean Corpuscular Hemoglobin Concent 35, Red Cell Distribution Width 14.2, Platelet Count 191, Mean Platelet Volume 9.8, Sodium Level 142, Potassium Level 3.9, Chloride Level 112H, Carbon Dioxide Level 19L, Anion Gap 11, Blood Urea Nitrogen 11, Creatinine 1.11, Estimat Glomerular Filtration Rate > 60, BUN/Creatinine Ratio 10, Glucose Level 113H, Calcium Level 8.6 Home Meds Active Lisinopril 10 Mg Tablet 10 Mg PO DAILY@0900 30 Days Atorvastatin Calcium 80 Mg Tablet 80 Mg PO HS 30 Days Brilinta (Ticagrelor) 90 Mg Tablet 90 Mg PO BID 30 Days Reported Multivitamins (Multivitamin) 1 Each Tablet 1 Tab PO HS Aspirin EC (Aspirin) 81 Mg Tablet.dr 81 Mg PO HS Diazepam 5 Mg Tablet 5 Mg PO HS PRN Hydrocodone-Acetamin 7.5-325 (Hydrocodone/Acetaminophen) 1 Each Tablet 1 Tab PO Q6H PRN Atorvastatin Calcium 20 Mg Tablet 20 Mg PO HS Metoprolol Succinate 25 Mg Tab.er.24h 25 Mg PO HS Bupropion Xl (Bupropion HCl) 300 Mg Tab.er.24h 300 Mg PO HS Assessment/Pt Instructions unstable angina secondary to coronary artery disease Coronary artery disease status post PCI to RCA Hypertension Hyperlipidemia Tobaccoism non-curtailed counseled Discharge Instructions Discharge Diet: Cardiac Diet Discharge Physical Examination Vital Signs Vital Signs Date Time Temp Pulse Resp B/P (MAP) Pulse Ox O2 Delivery O2 Flow Rate FiO2 11/07/19 12:01 78 11/07/19 11:56 36.9 18 155/93 (113) 94 Room Air General Appearance: No Apparent Distress, WD/WN HEENT: Normal ENT Inspection, Pharynx Normal Respiratory: Chest Non Tender, Lungs Clear, Normal Breath Sounds, No Accessory Muscle Use, No Respiratory Distress Cardiovascular: Regular Rate, Rhythm, No Gallop, No Murmur, Normal Peripheral Pulses Gastrointestinal: Normal Bowel Sounds, No Organomegaly, Non Tender, Soft Extremity: No Pedal Edema Skin: Normal Color, Warm/Dry Neurologic/Psychiatric: Alert, Oriented x3, No Motor/Sensory Deficits, Normal Mood/Affect, 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 II-XII Norm as Tested Allergies: Coded Allergies: No Known Drug Allergies (Unverified , 04/08/13) Copy Copies To 1: [facility] [place] [facility] [place] Discharge Summary Date of Admission Nov 05, 2019 at 13:41 Date of Discharge Discharge Date: Nov 07, 2019 Discharge Time: 1400 Admission Diagnosis chest pain Hypertension Hyperlipidemia Strong family history of her early heart disease Borderline diabetes Plan to go to heart catheter for further evaluation Clinical Quality Measures AMI/AHF: ASA po Prior to arrival: No DVT/VTE Risk/Contraindication: Risk Factor Score Per Nursin RFS Level Per Nursing on Admit: 1=Low/No VTE PPX CM ORACH MD Nov 07, 2019 13:39
[2019-11-07 13:45] VITALS: BP 155/93
--- NOTE | 2019-11-07 14:41 | Cardiology Progress Note ---
Cardiology SOAP Progress Note Subjective: No further chest pain. Objective: I&O/Vital Signs 11/07/19 11/07/19 11/07/19 11/07/19 04:00 07:00 08:00 08:02 Temp 36.4 36.4 Pulse 68 68 75 Resp 20 18 B/P (MAP) 116/74 (88) 144/84 (104) Pulse Ox 98 94 O2 Delivery Room Air Room Air Room Air 11/07/19 11/07/19 11:56 12:01 Temp 36.9 Pulse 69 78 Resp 18 B/P (MAP) 155/93 (113) Pulse Ox 94 O2 Delivery Room Air 11/07/19 00:00 Intake Total 2410 ml Output Total 850 ml Balance 1560 ml Weight (Pounds): 250 Weight (Ounces): 0 Weight (Calculated Kilograms): [id number] Constitutional: appears stated age, AAO x 3; No apparent distress; well- developed, well-nourished Respiratory: chest is bilaterally symmetric, lungs clear to auscultation Cardiovascular: regular rate-rhythm, S1 and S2 Gastrointestional: soft, audible bowel sounds; No spleenomegaly Extremities: normal range of motion, non-tender, normal inspection; No clubbing, No cyanosis; no lower extremity edema bilateral; No significant edema Neurologic/Psychiatric: no motor/sensory deficits, alert, normal mood/affect, oriented x 3, power is 5/5 both on sides Skin: normal color; No rash, No ulcerations Results/Procedures: Labs Laboratory Tests 11/07/19 05:34: White Blood Count 8.0, Red Blood Count 4.57, Hemoglobin 14.3, Hematocrit 41, Mean Corpuscular Volume 90, Mean Corpuscular Hemoglobin 31, Mean Corpuscular Hemoglobin Concent 35, Red Cell Distribution Width 14.2, Platelet Count 191, Mean Platelet Volume 9.8, Sodium Level 142, Potassium Level 3.9, Chloride Level 112H, Carbon Dioxide Level 19L, Anion Gap 11, Blood Urea Nitrogen 11, Creatinine 1.11, Estimat Glomerular Filtration Rate > 60, BUN/Creatinine Ratio 10, Glucose Level 113H, Calcium Level 8.6 A/P: Assessment/Dx: Unstable angina Hypertension, Hyperlipidemia, Active smoking. Plan: Unstable angina, serial troponin negative. Coronary angiography done 11/06/2019 shows severe subtotal mid RCA stenosis treated with one drug-eluting stent. Dual antiplatelet therapy for at least 1 year. Aggressive secondary prevention measures for atherosclerotic heart disease. Hypertension, start metoprolol and lisinopril. Hyperlipidemia, continue statin therapy. Active smoking. Smoking cessation was strongly recommended. Follow-up with me in mid November 2019 for follow-up, based on patient's request. Thank you for your consultation. Please call me if you have any questions. Eugenia Clay MD, FACP, FACC, FSCAI, FHRS, CCDS Interventional Cardiology Cardiac Electrophysiology Vascular Medicine and Endovascular Interventions Clinical Quality Measures AMI/AHF: ASA po Prior to arrival: Reji Alfaro MD Nov 07, 2019 14:41
== END 2019-11-07 13:45 | disposition home or self-care (01) ==
LOC: EDUNIT# 09:35 → ER FS 09:36 → UNDOADMOB 13:41 → 4TH 13:41 → ICU 11-06 12:44 → 4TH 11-06 16:43
PROVIDERS: ADMIT Internal Medicine; ATTEND Internal Medicine
DX: I25.119 Atherosclerotic heart disease of native coronary artery with unspecified angina pectoris (principal); E78.00 Pure hypercholesterolemia, unspecified; R73.03 Prediabetes; E78.5 Hyperlipidemia, unspecified; I10 Essential (primary) hypertension; F17.200 Nicotine dependence, unspecified, uncomplicated; Z79.82 Long term (current) use of aspirin; Z90.89 Acquired absence of other organs; Z79.899 Other long term (current) drug therapy; Z82.49 Family history of ischemic heart disease and other diseases of the circulatory system
CPT/HCPCS: 36415; 71045; 80048; 80053; 80061; 83036; 83690; 83735; 83874; 84484; 85025; 85027; 85379; 85610; 85730; 93005; 93041; 93306; 93458; 96374; 96375

== ENCOUNTER 2019-12-03 14:38 | Emergency (ER) | payer MEDICAID ==
[~2019-12-03] VITALS: Ht 175.3 cm; Wt 114.6 kg
[~2019-12-03 14:38] MED LIST changes: +ASPI-983 PO; +ATOR20TA66 PO; +ATOR80TA76 PO; +BUPR300T51 PO; +DIAZ5TAB49 PO; +HYDR-3816 PO; +LISI10TA2 PO; +MTP25TSR PO; +MULT1TAB69 PO; +TICA90TA PO
[2019-12-03] MEDS ORDERED: NS IV 500 ML 500 ML IV ONE (15:00)
--- NOTE | 2019-12-03 15:03 | ED Abdominal Pain ---
General Stated Complaint: SUPRAPUBIC/GENITAL PAIN Source of Information: Patient Exam Limitations: No Limitations History of Present Illness Date Seen by Provider: Dec 03, 2019 Time Seen by Provider: 14:53 Initial Comments 49-year-old male presents to the emergency room as a referral from the [facility]. Patient reports that he has low abdominal pain radiating down into his scrotal sac. He has no history of renal lithiasis however he was seen and treated at the [facility] for ischemic heart disease and had a stent placed on November 05, [address] Lopez. admits to abd ominal pain but denies chest pain or shortness of breath however he is breathing heavily on route arriving in the emergency room. A she has given informed consent for diagnostic and therapeutic services including CT scan for possible renal lithiasis. Patient denies any history of pulmonary renal or GI disease. He does have the previously mentioned cardiac stent placed 1 month ago. Timing/Duration: 1-3 Hours (. Abdominal spasm colicky pain radiating into his genital area) Severity/Quality: Moderate Location: Suprapubic Radiation: Flank Activities at Onset: Activity Modifying Factors: Improves With Breathing, Improves With Coughing Associated Symptoms: Back Pain, Nausea/Vomiting Allergies and Home Medications Allergies Coded Allergies: No Known Drug Allergies (Unverified , 04/08/13) Home Medications Aspirin 81 Mg Tablet.dr, 81 MG PO HS, (Reported) Atorvastatin Calcium 80 Mg Tablet, 80 MG PO HS Prescribed by: CM ROACH on 11/07/19 1333 Bupropion HCl 300 Mg Tab.er.24h, 300 MG PO HS, (Reported) Diazepam 5 Mg Tablet, 5 MG PO HS PRN for ANXIETY, (Reported) Hydrocodone/Acetaminophen 1 Each Tablet, 1 TAB PO Q6H PRN for PAIN-MODERATE (5- 7), (Reported) Lisinopril 10 Mg Tablet, 10 MG PO DAILY@0900 Prescribed by: CM ROACH on 11/07/19 1333 Metoprolol Succinate 25 Mg Tab.er.24h, 25 MG PO HS, (Reported) Multivitamin 1 Each Tablet, 1 TAB PO HS, (Reported) Ticagrelor 90 Mg Tablet, 90 MG PO BID Prescribed by: CM ROACH on 11/07/19 1333 Patient Home Medication List Home Medication List Reviewed: Yes Review of Systems Review of Systems Constitutional: malaise, weakness EENTM: No Symptoms Reported Respiratory: No Symptoms Reported Cardiovascular: See HPI, Other (cardiac stent placed by Dr. Bauer in November 05, 2019) Gastrointestinal: Abdomen Distended (with umbilical hernia), Nausea, Other (bilateral flank pain radiating down into the scrotal area) Genitourinary: Flank Pain Musculoskeletal: back pain, joint pain Skin: no symptoms reported Psychiatric/Neurological: Anxiety Endocrine: No Symptoms Reported Hematologic/Lymphatic: No Symptoms Reported Past Rfdthbw-Fvlheb-Kyaysb Hx Patient Social History 2nd Hand Smoke Exposure: Yes Recent Foreign Travel: No Seasonal Allergies Seasonal Allergies: No Past Medical History Surgeries: Yes Cardiac, Tonsillectomy Respiratory: No Cardiac: Yes High Cholesterol, Hypertension Neurological: No Genitourinary: No Gastrointestinal: No Musculoskeletal: No Endocrine: No Diabetes, Non-Insulin dep HEENT: No Cancer: No Psychosocial: No Integumentary: No Family Medical History Reviewed Nursing Family Hx CAD Under 55 Years Old Physical Exam Vital Signs Vital Signs - First Documented 12/03/19 14:48 Temp 36.2 Pulse 78 Resp 20 B/P (MAP) 147/77 (100) Pulse Ox 99 O2 Delivery Room Air Capillary Refill : Height/Weight/BMI Height: 5'9.00" Weight: 250lbs. 0oz. [id number]; 35.80 BMI Method:Stated General Appearance: WD/WN, moderate distress (from bilateral flank pain that radiates into the scrotal area) HEENT: PERRL/EOMI, normal ENT inspection, TMs normal, pharynx normal Neck: non-tender, full range of motion, supple, normal inspection Respiratory: chest non-tender, lungs clear, normal breath sounds, no respirator y distress, no accessory muscle use Cardiovascular: regular rate, rhythm, no edema, no gallop, no JVD, no murmur Peripheral Pulses: 2+ Carotid (R), 2+ Carotid (L) Gastrointestinal: normal bowel sounds, soft, guarding, tenderness (, all pain secondary to diverticulitis), hernia (umbilical) Extremities: normal range of motion, non-tender, normal inspection, no pedal edema, no calf tenderness Back: normal inspection, no vertebral tenderness, CVA tenderness (L) Neurologic/Psychiatric: clinical appeals auditor II-XII nml as tested, no motor/sensory deficits, alert, normal mood/affect, oriented x 3 Skin: normal color, warm/dry Lymphatic: no adenopathy Progress/Results/Core Measures Results/Orders Lab Results Laboratory Tests Test 12/03/19 15:20 Range/Units White Blood Count 10.6 4.3-11.0 10^3/uL Red Blood Count 4.54 4.35-5.85 10^6/uL Hemoglobin 14.3 13.3-17.7 G/DL Hematocrit 40 40-54 % Mean Corpuscular Volume 89 80-99 FL Mean Corpuscular Hemoglobin 31 25-34 PG Mean Corpuscular Hemoglobin Concent 35 32-36 G/DL Red Cell Distribution Width 13.5 10.0-14.5 % Platelet Count 234 130-400 10^3/uL Mean Platelet Volume 10.0 7.4-10.4 FL Neutrophils (%) (Auto) 70 42-75 % Lymphocytes (%) (Auto) 25 12-44 % Monocytes (%) (Auto) 4 0-12 % Eosinophils (%) (Auto) 1 0-10 % Basophils (%) (Auto) 1 0-10 % Neutrophils # (Auto) 7.4 1.8-7.8 X 10^3 Lymphocytes # (Auto) 2.6 1.0-4.0 X 10^3 Monocytes # (Auto) 0.4 0.0-1.0 X 10^3 Eosinophils # (Auto) 0.1 0.0-0.3 10^3/uL Basophils # (Auto) 0.1 0.0-0.1 10^3/uL Neutrophils % (Manual) 68 % Lymphocytes % (Manual) 29 % Reactive Lymphocytes 3 % Microcytosis MODERATE Sodium Level 142 135-145 MMOL/L Potassium Level 4.0 3.6-5.0 MMOL/L Chloride Level 106 98-107 MMOL/L Carbon Dioxide Level 23 21-32 MMOL/L Anion Gap 13 5-14 MMOL/L Blood Urea Nitrogen 13 7-18 MG/DL Creatinine 1.20 0.60-1.30 MG/DL Estimat Glomerular Filtration Rate > 60 BUN/Creatinine Ratio 11 Glucose Level 86 70-105 MG/DL Calcium Level 9.6 8.5-10.1 MG/DL Corrected Calcium 8.5-10.1 MG/DL Total Bilirubin 0.3 0.1-1.0 MG/DL Aspartate Amino Transf (AST/SGOT) 30 5-34 U/L Alanine Aminotransferase (ALT/SGPT) 42 0-55 U/L Alkaline Phosphatase 106 40-136 U/L Troponin I < 0.30 <0.30 NG/ML Total Protein 7.1 6.4-8.2 GM/DL Albumin 4.7 H 3.2-4.5 GM/DL My Orders Orders - DANILO CORTES DO Cbc And Manual Diff (12/03/19 14:54) Comprehensive Metabolic Panel (12/03/19 14:54) Urinalysis (12/03/19 14:54) Drug Screen Stat (Urine) (12/03/19 14:54) Troponin I Fs (12/03/19 14:54) Ekg Tracing (12/03/19 14:54) Ns Iv 500 Ml (Sodium Chloride 0.9%) (12/03/19 15:00) Ct Abd/Pelvis Wo(Kidney Stone) (12/03/19 14:54) Medications Given in ED Current Medications Medications Dose Ordered Sig/Moni Route Start Time Stop Time Status Last Admin Dose Admin Sodium Chloride 500 ml @ 30 mls/hr [id number] ONCE IV 12/03/19 15:00 12/04/19 07:39 12/03/19 15:15 30 MLS/HR Vital Signs/I&O 12/03/19 14:48 Temp 36.2 Pulse 78 Resp 20 B/P (MAP) 147/77 (100) Pulse Ox 99 O2 Delivery Room Air Progress Progress Note : Time: 16:26 Progress Note Patient's abdominal pain is secondary to diverticulitis with some fat stranding. Patient also has a noncontributory kidney stone. Patient was told the findings and recommended for inpatient IV antibiotic therapy however he states he does not want to go to hospital if he can avoid it. Patient is not drinking alcohol. He is given Flagyl 500 mg IV piggyback in the emergency room and will continue on Flagyl 500 3 times a day. He understands that he should return to the emergency room for admission to the hospital if his condition worsens exam clear liquids for the next 2-3 days. Patient does understand the risk of delayed inpatient IV antibiotic therapy may be peritonitis. TECHNIQUE: Multiple contiguous axial images were obtained through the abdomen and pelvis without the use of intravenous contrast. Auto Exposure Controls were utilized during the CT exam to meet ALARA standards for radiation dose reduction. COMPARISON: There is no prior study for comparison. FINDINGS: The visualized portions of the lung bases are clear. There are no pleural fluid collections. There is no free intraperitoneal air. The liver shows no focal abnormality without contrast. Gallbladder appears normal. Spleen, adrenals, and pancreas appear normal. The kidneys bilaterally show no hydronephrosis. There is a tiny nonocclusive stone in the mid pole of the left kidney. There are no ureteral stones or hydronephrosis. There is no retroperitoneal mass or adenopathy. There is no ascites or abnormal fluid collection. There is a small ventral hernia in the midline containing fat, in the periumbilical region. There is sigmoid diverticulosis with some moderate adjacent fat stranding, compatible with acute diverticulitis. There is no overt diverticular abscess. IMPRESSION: Findings compatible with acute diverticulitis in the sigmoid region with moderate fat stranding adjacent to the sigmoid colon. There is no sign of abscess or bowel obstruction. Incidental small nonocclusive stone in the left kidney. No ureteral stone or hydronephrosis. Incidental small periumbilical fat-containing hernia. Departure Impression Primary Impression: Diverticulitis of intestine Additional Impression: Renal lithiasis Disposition: HOME, SELF-CARE (patient has refused inpatient stabilization with IV antibiotics. We'll give him 500 mg of IV Flagyl in the emergency room he understands he must return to the emergency room if he gets worse as he does have diverticulitis with fat stranding) Condition: Stable Departure-Patient Inst. Referrals: JESSICA BURKETT APRN (PCP) Primary Care Physician Patient Instructions: Diverticulitis Scripts Metronidazole (Flagyl) 500 Mg Tablet 500 MG PO TID for Abdominal Pain for 10 Days, #30 TAB Prov: DANILO CORTES DO 12/03/19 Work/School Note: Work Release Form Date Seen in the Emergency Department: Dec 03, 2019 Return to Work: Dec 08, 2019 Restrictions: Return-No Vomiting(24hrs) Other Restrictions Listed Below: Patient has diverticulitis and is on antibiotic therapy no work if vomiting Restrictions: must be hydrated with water Patient is very aware that he has diverticulitis and was recommended for inpatient IV antibiotic therapy. He understands that he should return to the emergency room if his abdominal pain worsens or he develops fevers. The meantime he is being treated with Flagyl should not drink any alcohol of any kind and follow-up with his primary care provider. DANILO CORTES DO Dec 03, 2019 15:03
[2019-12-03 15:44] LABS: BASOPHILS # (AUTO) 0.1 10^3/uL (0.0-0.1); BASOPHILS % (AUTO) 1 % (0-10); EOSINOPHILS # (AUTO) 0.1 10^3/uL (0.0-0.3); EOSINOPHILS % (AUTO) 1 % (0-10); HEMATOCRIT 40 % (40-54); HEMOGLOBIN 14.3 G/DL (13.3-17.7); LYMPHOCYTES # (AUTO) 2.6 X 10^3 (1.0-4.0); LYMPHOCYTES % (AUTO) 25 % (12-44); MEAN CORPUSCULAR HEMOGLOBIN 31 PG (25-34); MEAN CORPUSCULAR HGB CONC 35 G/DL (32-36); MEAN CORPUSCULAR VOLUME 89 FL (80-99); MONOCYTES # (AUTO) 0.4 X 10^3 (0.0-1.0); MONOCYTES % (AUTO) 4 % (0-12); NEUTROPHILS # (AUTO) 7.4 X 10^3 (1.8-7.8); NEUTROPHILS % (AUTO) 70 % (42-75); PLATELET COUNT 234 10^3/uL (130-400); RED CELL DISTRIBUTION WIDTH 13.5 % (10.0-14.5); WHITE BLOOD COUNT 10.6 10^3/uL (4.3-11.0)
--- NOTE | 2019-12-03 15:48 | Diagnostic Imaging Report ---
INDICATION: Abdominal pain. TECHNIQUE: Multiple contiguous axial images were obtained through the abdomen and pelvis without the use of intravenous contrast. Auto Exposure Controls were utilized during the CT exam to meet ALARA standards for radiation dose reduction. COMPARISON: There is no prior study for comparison. FINDINGS: The visualized portions of the lung bases are clear. There are no pleural fluid collections. There is no free intraperitoneal air. The liver shows no focal abnormality without contrast. Gallbladder appears normal. Spleen, adrenals, and pancreas appear normal. The kidneys bilaterally show no hydronephrosis. There is a tiny nonocclusive stone in the mid pole of the left kidney. There are no ureteral stones or hydronephrosis. There is no retroperitoneal mass or adenopathy. There is no ascites or abnormal fluid collection. There is a small ventral hernia in the midline containing fat, in the periumbilical region. There is sigmoid diverticulosis with some moderate adjacent fat stranding, compatible with acute diverticulitis. There is no overt diverticular abscess. IMPRESSION: Findings compatible with acute diverticulitis in the sigmoid region with moderate fat stranding adjacent to the sigmoid colon. There is no sign of abscess or bowel obstruction. Incidental small nonocclusive stone in the left kidney. No ureteral stone or hydronephrosis. Incidental small periumbilical fat-containing hernia. Dictated by: Dictated on workstation # [id number]
[2019-12-03 15:50] LABS: BUN/CREATININE RATIO 11; CARBON DIOXIDE 23 MMOL/L (21-32); CHLORIDE 106 MMOL/L (98-107); GFR ESTIMATED > 60; SODIUM 142 MMOL/L (135-145)
[2019-12-03 15:51] LABS: ALANINE AMINOTRANSFERASE 42 U/L (0-55); ALBUMIN 4.7 GM/DL (3.2-4.5); ALKALINE PHOSPHATASE 106 U/L (40-136); BILIRUBIN,TOTAL 0.3 MG/DL (0.1-1.0); CALCIUM 9.6 MG/DL (8.5-10.1); GLUCOSE 86 MG/DL (70-105); TOTAL PROTEIN 7.1 GM/DL (6.4-8.2)
[2019-12-03 16:03] LABS: LYMPHOCYTES % (MANUAL) 29 %; MICROCYTOSIS MODERATE; NEUTROPHILS % (MANUAL) 68 %; REACTIVE LYMPHOCYTES 3 %
[2019-12-03] MEDS ORDERED: METR500T PO (16:31)
[2019-12-03 16:44] LABS: AMPHETAMINE SCREEN, URINE NEGATIVE (NEGATIVE); BARBITURATE SCREEN URINE NEGATIVE (NEGATIVE); CANNABINOID SCREEN, URINE NEGATIVE (NEGATIVE); COCAINE SCREEN URINE NEGATIVE (NEGATIVE); METHADONE STAT NEGATIVE (NEGATIVE); METHAMPHETAMINE SCREEN URINE S NEGATIVE (NEGATIVE); OXYCODONE STAT NEGATIVE (NEGATIVE); TRICYCLIC ANTIDEPRESSANTS SCRE NEGATIVE (NEGATIVE)
[2019-12-03 16:45] VITALS: BP 123/76
[2019-12-03 16:45] LABS: PROPOXYPHENE STAT NEGATIVE (NEGATIVE)
[2019-12-03] MEDS ORDERED: metroNIDAZOLE 500MG/100ML IVPB 100 ML IV ONE (16:45)
[2019-12-03] MEDS ORDERED: NS IV 1000 ML 1,000 ML IV ONE (16:45)
[2019-12-03 16:52] LABS: BENZODIAZEPINES SCREEN URINE POSITIVE (NEGATIVE); OPIATE SCREEN URINE POSITIVE (NEGATIVE)
[2019-12-03 17:21] LABS: CLARITY,URINE CLEAR; COLOR,URINE YELLOW; GLUCOSE, URINE (UA) NEGATIVE (NEGATIVE); PH,URINE 6.5 (5-9); PROTEIN,URINE NEGATIVE (NEGATIVE)
[2019-12-03 17:22] LABS: BACTERIA,URINE NEGATIVE /HPF; BILIRUBIN,URINE NEGATIVE (NEGATIVE); KETONES,URINE NEGATIVE (NEGATIVE); LEUKOCYTE ESTERASE ,URINE NEGATIVE (NEGATIVE); NITRITE,URINE NEGATIVE (NEGATIVE); RBC,URINE RARE /HPF; WBC,URINE RARE /HPF
[2019-12-03 18:15] VITALS: BP 124/73
== END 2019-12-03 18:15 | disposition home or self-care (01) ==
LOC: EDUNIT# 14:38 → ER FS 14:40
DX: K57.92 Diverticulitis of intestine, part unspecified, without perforation or abscess without bleeding (principal); N20.0 Calculus of kidney; I10 Essential (primary) hypertension; E11.9 Type 2 diabetes mellitus without complications; Z90.89 Acquired absence of other organs; Z95.5 Presence of coronary angioplasty implant and graft; Z79.82 Long term (current) use of aspirin; Z77.22 Contact with and (suspected) exposure to environmental tobacco smoke (acute) (chronic)
CPT/HCPCS: 36415; 74176; 80053; 80306; 81000; 84484; 85007; 85027; 93005; 96361; 96365

== ENCOUNTER 2021-02-14 02:04 | Emergency (ER) | payer MEDICAID ==
[~2021-02-14] VITALS: Ht 175.2 cm; Wt 113.4 kg
[~2021-02-14 02:04] MED LIST changes: +ASPI-1238 PO; -ASPI-983 PO; -BUPR300T51 PO; +BUPR300T98 PO; +HYDR-34 PO; -HYDR-3816 PO; -LISI10TA2 PO; +LISI10TA25 PO; +METR500T PO; +MULT-567 PO; -MULT1TAB69 PO
[2021-02-14 02:05] VITALS: BP 146/89
--- NOTE | 2021-02-14 02:11 | ED EENT ---
History of Present Illness General Chief Complaint: Eye Problems Stated Complaint: EYE POBLEMS History of Present Illness Date Seen by Provider: Feb 14, 2021 Time Seen by Provider: 02:11 Initial Comments 50-year-old male presents with eye pain and some mild facial pain. 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 This happened around 9 PM yesterday evening. Patient reports that the pain has continued to get worse. Patient reports no foreign body possibility. Allergies and Home Medications Allergies Coded Allergies: No Known Drug Allergies (Unverified , 04/08/13) Home Medications Aspirin 81 Mg Tablet.dr, 81 MG PO HS, (Reported) Atorvastatin Calcium 80 Mg Tablet, 80 MG PO HS Prescribed by: CM ROACH on 11/07/19 1333 Bupropion HCl 300 Mg Tab.er.24h, 300 MG PO HS, (Reported) Diazepam 5 Mg Tablet, 5 MG PO HS PRN for ANXIETY, (Reported) Hydrocodone Bit/Acetaminophen 1 Each Tablet, 1 TAB PO Q6H PRN for PAIN-MODERATE (5-7), (Reported) Lisinopril 10 Mg Tablet, 10 MG PO DAILY@0900 Prescribed by: CM ROACH on 11/07/19 1333 Metoprolol Succinate 25 Mg Tab.er.24h, 25 MG PO HS, (Reported) Metronidazole 500 Mg Tablet, 500 MG PO TID Prescribed by: DANILO CORTES on 12/03/19 1631 Multivitamin 1 Each Tablet, 1 TAB PO HS, (Reported) Polymyxin B Sulf/Trimethoprim 10 Ml Drops, 2 DROP OP Q6H Prescribed by: KILEY YOUNG on 02/14/21 0220 Ticagrelor 90 Mg Tablet, 90 MG PO BID Prescribed by: CM ROACH on 11/07/19 1333 Patient Home Medication List Home Medication List Reviewed: Yes Review of Systems Review of Systems Constitutional: No chills, No fever Eyes: See HPI, Pain, Photophobia Ears: No Symptoms Reported Nose: no symptoms reported Throat: no symptoms reported Respiratory: no symptoms reported Cardiovascular: no symptoms reported Gastrointestinal: no symptoms reported Musculoskeletal: no symptoms reported Skin: see HPI Past Xypxblw-Fdlaqg-Npnrvd Hx Past Med/Social Hx: Reviewed Nursing Past Med/Soc Hx Patient Social History Type Used: Cigarettes 2nd Hand Smoke Exposure: Yes Seasonal Allergies Seasonal Allergies: No Past Medical History Surgeries: Yes (cardiac stent placement 11/05/2019) Cardiac, Coronary Stent, Tonsillectomy Respiratory: No Cardiac: Yes Coronary Artery Disease, High Cholesterol, Hypertension Neurological: No Genitourinary: No Gastrointestinal: Yes (abdominal hernia) Musculoskeletal: No Endocrine: No Diabetes, Non-Insulin dep HEENT: No Cancer: No Psychosocial: Yes Depression Integumentary: No Family Medical History CAD Under 55 Years Old Physical Exam Height, Weight, BMI Height: 5'9.00" Weight: 250lbs. 0oz. 113.834612yy; 37.00 BMI Method:Stated General Appearance: moderate distress Eyes: bilateral eye other (injected) Neck: non-tender, full range of motion Cardiovascular: normal peripheral pulses, regular rate, rhythm Respiratory: no respiratory distress, no accessory muscle use Gastrointestinal: soft Neurologic/Psychiatric: alert, oriented x 3 Skin: other (mild bilateral eye lid swelling and erythema, mild facial erythema ) Progress/Results/Core Measures Results/Orders My Orders Orders - KILEY YOUNG DO Tetracaine 0.5% Ophth Lashonda Sdv (Tetracai (02/14/21 02:15) Hydrocodone/Apap 5/325 Tablet (Lortab 5 (02/14/21 02:15) Medications Given in ED Current Medications Medications Dose Ordered Sig/Moni Route Start Time Stop Time Status Last Admin Dose Admin Acetaminophen/ Hydrocodone Bitart 1 ea ONCE ONCE PO 02/14/21 02:15 02/14/21 02:16 DC 02/14/21 02:21 1 EA Tetracaine HCl 1 OR 2 DROPS INTO AFFEC... ONCE ONCE OP 02/14/21 02:15 02/14/21 02:16 DC 02/14/21 02:22 4 ML Departure Impression Primary Impression: Photokeratitis of both eyes Disposition: HOME, SELF-CARE Condition: Stable Departure-Patient Inst. Referrals: JESSICA BURKETT APRN (PCP/Family) Primary Care Physician Patient Instructions: Photokeratitis ([facility]), How to Use Eye Drops Add. Discharge Instructions: Follow-up with the eye doctor tomorrow or the next day for recheck of symptoms All discharge instructions reviewed with patient and/or family. Voiced u nderstanding. Scripts Polymyxin B Sulf/Trimethoprim (Polytrim Eye Drops) 10 Ml Drops 2 DROP OP Q6H for 4 Days, #1 EA Prov: KILEY YOUNG DO 02/14/21 KILEY YOUNG DO Feb 14, 2021 02:11
[2021-02-14] MEDS ORDERED: TETRACAINE 0.5% OPHTH SOLN 4 ML BTL (SINGLE DOSE ONLY) OP ONE (02:15)
[2021-02-14] MEDS ORDERED: HYDROcodone/APAP 5 MG/325 MG (LORTAB) TAB PO ONE (02:15)
[2021-02-14] MEDS ORDERED: POLY10DR OP (02:20)
[2021-02-14] MEDS ORDERED: ACHD5005 PO (02:20)
== END 2021-02-14 02:32 | disposition home or self-care (01) ==
LOC: ER FS 02:05
DX: H16.133 Photokeratitis, bilateral (principal); I10 Essential (primary) hypertension; E78.00 Pure hypercholesterolemia, unspecified; F32.9 Major depressive disorder, single episode, unspecified; Z77.22 Contact with and (suspected) exposure to environmental tobacco smoke (acute) (chronic); Z95.5 Presence of coronary angioplasty implant and graft; Z79.82 Long term (current) use of aspirin
CPT/HCPCS: 99283

== ENCOUNTER → 2021-03-01 | Outpatient (CLI) | payer MEDICAID ==
[~2021-03-01] MED LIST changes: +ACHD5005 PO; +POLY10DR OP
--- NOTE | 2021-03-01 15:00 | Diagnostic Imaging Report ---
PROCEDURE: CT thoracic spine without contrast. TECHNIQUE: Multiple axial computerized tomography images were obtained from the base of the thoracic spine to the vertex without intravenous contrast. Auto Exposure Controls were utilized during the CT exam to meet ALARA standards for radiation dose reduction. INDICATION: Chronic back pain. COMPARISON: No relevant comparison aside from the overlapped levels obtained at abdominal CT of 12/03/2019. FINDINGS: The thoracic vertebral statures are normal and the alignment is anatomic. There is no acute or suspicious endplate irregularity. No suspect lytic or sclerotic bone lesion. No bony destructive process. There is no evidence for a fracture. There is no paravertebral mass, hemorrhage, or fluid collection. There are mild multilevel osteophytes, predominantly directed anteriorly, as well as some chronic benign degenerative changes at the costovertebral junctions, greater right. The spinal canal shows no appreciable soft tissue or bony stenosis and no apparent obstruction of the neural foramina. IMPRESSION: Mild spondylosis without stenosis. Normal alignment. No fracture or destructive process. No acute or suspicious abnormality. Dictated by: Dictated on workstation # [id number]
== END ==
LOC: RAD FS 12:09
PROVIDERS: ATTEND Nurse Practitioner Family
DX: M47.814 Spondylosis without myelopathy or radiculopathy, thoracic region (principal)
CPT/HCPCS: 72128

== ENCOUNTER → 2021-03-05 | Outpatient (CLI) | payer MEDICAID | LOC: CARD 13:01 | PROVIDERS: ATTEND Internal Medicine Cardiovascular Disease | DX: R07.89 Other chest pain (principal) | CPT/HCPCS: 93306 ==

== ENCOUNTER → 2021-03-20 | Outpatient (CLI) | payer MEDICAID ==
[~2021-03-20] VITALS: Ht 175 cm; Wt 116.0 kg
[~2021-03-20] MED LIST changes: +CATHETER FLUSH 10 ML SYR IV PRN; +REGADENOSON 0.4 MG/5 ML SYR (LEXISCAN) IV ONE
[2021-03-20 09:30] VITALS: BP 137/86
--- NOTE | 2021-03-20 17:35 | STRESS TEST ---
DATE OF SERVICE: 03/20/2021 RESTING AND POST REGADENOSON TECHNETIUM-99M TETROFOSMIN SPECT CT IMAGING ORDERING PHYSICIAN: Dr. Lopez. PRIMARY PHYSICIAN: [facility]. CLINICAL DIAGNOSIS: Chest discomfort. Baseline images were carried out after injection of 10.13 mCi of technetium-99m Tetrofosmin. This was followed by 0.4 mg regadenoson and 30.8 mCi of technetium-99m Tetrofosmin for stress imaging. The electrocardiogram showed sinus rhythm with sinus arrhythmia. The electrocardiogram did not change significantly with regadenoson infusion. The patient noted some nausea and shortness of breath following regadenoson infusion, which resolved in a few minutes. Review of images at rest and following stress does not indicate any distinct perfusion defects consistent with significant myocardial ischemia or infarction. Gated images show normal global left ventricular systolic function with normal regional wall motion. Left ventricular ejection fraction is calculated to be 76%. Left ventricular end diastolic volume 69 mL. TID is absent (0.88). CONCLUSIONS: 1. No evidence of any significant myocardial ischemia or infarction on this study. 2. Normal regional wall motion. 3. Normal to hyperdynamic left ventricular systolic function with a calculated ejection fraction 76%. Job ID: [id number] DocumentID: [id number] Dictated Date: 03/20/2021 14:59:51 [place] Worker Date: 03/20/2021 17:34:52 Dictated By: CITLALI LOPEZ MD, MA, FACP, FACC,
== END ==
LOC: CARD 03-13 07:30
PROVIDERS: ATTEND Internal Medicine Cardiovascular Disease
DX: R07.89 Other chest pain (principal)
CPT/HCPCS: 78452; 93017; A9502

== ENCOUNTER → 2021-04-02 | Outpatient (CLI) | payer OTHER ==
[~2021-04-02] MED LIST changes: -CATHETER FLUSH 10 ML SYR IV PRN; -REGADENOSON 0.4 MG/5 ML SYR (LEXISCAN) IV ONE
--- NOTE | 2021-04-02 12:00 | Diagnostic Imaging Report ---
Indication: Low back pain. Time of exam: 10:29 AM Frontal and lateral views of the lumbar spine demonstrate Normal curvature and alignment. Vertebral body heights and disc spaces are well maintained. No fracture or subluxation is identified. Impression: No acute abnormality is detected. Dictated by: Dictated on workstation # [id number]
--- NOTE | 2021-04-02 12:01 | Diagnostic Imaging Report ---
Indication: Bilateral knee pain. Time of exam: 10:30 AM 2 views of each knee were obtained. Joint spaces are well maintained. Articular surfaces are smooth. No fracture, dislocation or effusion is seen within either knee. Impression: No acute bony abnormality is identified within the right or left knee. Dictated by: Dictated on workstation # [id number]
== END ==
LOC: RAD 10:07
PROVIDERS: ATTEND Anesthesiology Pain Medicine
DX: Z02.71 Encounter for disability determination (principal); M54.5 Low back pain; M25.561 Pain in right knee; M25.562 Pain in left knee
CPT/HCPCS: 72100

== ENCOUNTER 2021-07-12 17:06 | Emergency (ER) | payer OTHER ==
[~2021-07-12] VITALS: Ht 175.2 cm; Wt 103.2 kg
--- OUTSIDE RECORDS SUMMARY | 2021-07-12 17:11 | XMS REPORT | Clinical Summary ---
Author Author [facility] Organization [facility] Address Unknown Phone Unavailable Care Team Providers Care Commercial Development Manager Name Role Phone Markus Jesus APRN PCP Source Comments Some departments are not documenting in the electronic medical record. If you d o not see the information that you expected, contact Release of Information in [facility] Information Management department at [phone] for further assistan ce in locating additional records.[facility] Allergies No Known Active Allergies Medications End Date Status Medication Sig Dispensed Refills Start Date Active HYDROcodone/acetaminophen Take 1 tablet 0 (NORCO) 10/325 mg tablet by mouth twice daily Active aspirin 325 mg tablet Take 325 mg 0 by mouth daily. Take with food. Active atomoxetine (STRATTERA) Take 80 mg by 0 80 mg capsule mouth daily. Active diazePAM (VALIUM) 5 mg Take 5 mg by 0 tablet mouth daily. Active lisinopriL (ZESTRIL) 10 Take 10 mg by 0 mg tablet mouth daily. Active metoprolol XL (TOPROL XL) Take 25 mg by 0 25 mg extended release mouth daily. tablet Active Multivitamins with Take by 0 Fluoride (MULTI-VITAMIN mouth daily. PO) Active omeprazole DR (PRILOSEC) Take 40 mg by 0 40 mg capsule mouth daily before breakfast. Active tiZANidine (ZANAFLEX) 2 Take one 60 tablet 1 mg tablet tablet by 0 mouth every 8 hours. Active Problems Not on file Medical History Medical History Date Comments Anxiety Depression Borderline diabetes Joint pain Social History Date Tobacco Use Types Packs/Day Years Used Current Every Day Smoker 1 30 Smokeless Tobacco: Never Used Tobacco Cessation: Ready to Quit: Yes Comments Alcohol Use Standard Drinks/Week Socially Yes 0 (1 standard drink = 0.6 o z pure alcohol) Alcohol Habits Answer Date Recorded How often do you have a drink containing alcohol? No t asked How many drinks containing alcohol do you have on No t asked a typical day when you are drinking? How often do you have six or more drinks on one Not asked occasion? Comment: Socially 06/22/2020 Sex Assigned at Date Recorded Not on file Last Filed Vital Signs Reading Time Taken Comments Vital Sign 138/87 08/15/2020 8:28 AM CDT Blood Pressure 74 08/15/2020 8:28 AM CDT Pulse 36.9 C (98.4 F) 08/15/2020 8:28 AM CDT Temperature - - Respiratory Rate - - Oxygen Saturation - - Inhaled Oxygen Concentration 110.5 kg (243 lb 11.2 oz) 08/15/2020 8:28 AM CDT Weight 175.3 cm (5' 9") 08/15/2020 8:28 AM CDT per pt Height 35.99 08/15/2020 8:28 AM CDT Body Mass Index Plan of Treatment Health Maintenance Due Date Last Done Comments HIV SCREENING 1985 DTAP/TDAP VACCINES (1 - 1988 Tdap) HEPATITIS C SCREENING 1988 PHYSICAL (COMPREHENSIVE) 1988 EXAM COLORECTAL CANCER 2020 SCREENING SHINGLES RECOMBINANT 2020 VACCINE (1 of 2) INFLUENZA VACCINE 08/10/2021 Results Not on filefrom Last 3 Months Insurance Type Payer Benefit Subscriber ID Effective Phone Address Plan / Dates Group Medicaid [place] [employer] [id number] 2019-P [facility] (Home) [place], [place] [phone] Advance Directives 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
--- OUTSIDE RECORDS SUMMARY | 2021-07-12 17:11 | XMS REPORT | Clinical Summary ---
Author Author [facility] Organization [facility] Address Unknown Phone Unavailable Care Team Providers Care Manager Sterile Name Role Phone Markus Jesus APRN PCP Allergies No Known Active Allergies Medications End Date Status Medication Sig Dispensed Refills Start Date Active aspirin (ASPIR-81) 81 MG 1 tablet 0 EC tablet Active atorvastatin (LIPITOR) 80 1 tablet 0 07/11 MG tablet 9 Active buPROPion (WELLBUTRIN XL) 1 tablet in 0 06/12 300 MG XL 24 hr tablet the morning 9 Active clopidogreL (PLAVIX) 75 Take 75 mg by 0 mg tablet mouth daily. 0 Active diazePAM (VALIUM) 5 MG 1 tablet 0 02 tablet 0 Active diazePAM (VALIUM) 5 MG 0 tablet 0 Active HYDROcodone-acetaminophen TAKE 1 TABLET 0 01/09 (NORCO) 7.5-325 mg per BY MOUTH 0 tablet TWICE DAILY NEEDED FOR 14 DAYS Active ibuprofen (ADVIL,MOTRIN) Take 800 mg 0 11/21 800 MG tablet by mouth 8 every 8 (eight) hours as needed. Active lisinopriL TAKE 1 TABLET 0 (PRINIVIL,ZESTRIL) 10 MG BY MOUTH ONCE 0 tablet DAILY Active metformin (GLUCOPHAGE) TAKE ONE 0 01 500 mg tablet TABLET BY 5 MOUTH ONCE DAILY AT BEDTIME Active metoprolol succinate 0 (TOPROL-XL) 25 MG 24 hr 0 tablet Active omeprazole (PRILOSEC) 40 0 MG capsule 0 Active BRILINTA 90 mg Tab tablet Take 90 mg by 0 / mouth 2 (two) 0 times a day. Active Problems Not on file Social History Date Tobacco Use Types Packs/Day Years Used Current Some Day Smoker Cigarettes 1 30 Smokeless Tobacco: Never Used Tobacco Cessation: Ready to Quit: No; Co unseling Given: No Comments: Patient said "that he has tried several times it just ain't working." Comments Alcohol Use Standard Drinks/Week Yes 0 (1 standard drink = 0.6 o z pure alcohol) Alcohol Habits Answer Date Recorded How often do you have a drink containing alcohol? Monthly or less 04/26/2020 How many drinks containing alcohol do you have on No t asked a typical day when you are drinking? How often do you have six or more drinks on one Monthly 04/26/2020 occasion? Sex Assigned at Date Recorded Not on file Last Filed Vital Signs Reading Time Taken Comments Vital Sign 133/76 04/26/2020 12:03 PM CDT Blood Pressure 80 04/26/2020 12:03 PM CDT Pulse 37.1 C (98.7 F) 04/26/2020 12:03 PM CDT Temperature - - Respiratory Rate 97% 04/26/2020 12:03 PM CDT Oxygen Saturation - - Inhaled Oxygen Concentration 107.7 kg (237 lb 5.4 oz) 04/26/2020 12:03 PM CDT Weight 175.3 cm (5' 9") 04/26/2020 12:03 PM CDT Height 35.05 04/26/2020 12:03 PM CDT Body Mass Index Plan of Treatment Health Maintenance Due Date Last Done Comments Td/Tdap# 1970 Tobacco Cessation 1970 Counseling # Pneumococcal Vaccine: 1976 Pediatrics (0 to 5 Years) and At-Risk Patients (6 to 64 Years) (1 of 2 - PPSV23) COVID-19 Vaccine (1) 1982 Colorectal Screening via 2020 Colonoscopy Zoster Vaccine# (1 of 2) 2020 Influenza Vaccine (#1) 2021 09/16/2017 Results Not on filefrom Last 3 Months Insurance Type Payer Benefit Subscriber ID Effective Phone Address Plan / Dates Group MEDICAID MANAGED CARE [employer] [id number] 0- ([place] STATE Present HE[employer] [id number] [place] [id number] Nita Barron Personal/F Self 1970 [id number] [place] [address] Advance Directives For more information, please contact: [phone] 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
--- NOTE | 2021-07-12 17:15 | ED General ---
General Stated Complaint: HIGH BLOOD SUGAR History of Present Illness Date Seen by Provider: Jul 12, 2021 Time Seen by Provider: 17:11 Initial Comments 50-year-old male comes the ER due to high blood sugar. Patient reports that all day today and yesterday his blood sugars have been running over 600. Patient was just recently diagnosed with diabetes, started on Metformin and given a glucometer. Patient called his provider who sent him to the ER for further evaluation. Patient has a lot of thirst but otherwise no other systemic complaints. Allergies and Home Medications Allergies Coded Allergies: No Known Drug Allergies (Unverified , 04/08/13) Patient Home Medication List Home Medication List Reviewed: Yes Aspirin (Aspirin EC) 81 Mg Tablet.dr, 81 MG PO HS, (Reported) Entered as Reported by: MARTINE LOWE on 11/05/19 1556 Atorvastatin Calcium (Atorvastatin Calcium) 80 Mg Tablet, 80 MG PO HS Prescribed by: CM ROACH on 11/07/19 1333 Bupropion HCl (Bupropion Xl) 300 Mg Tab.er.24h, 300 MG PO HS, (Reported) Entered as Reported by: MARTINE LOWE on 11/05/19 1535 Diazepam (Diazepam) 5 Mg Tablet, 5 MG PO HS PRN for ANXIETY, (Reported) Entered as Reported by: MARTINE LOWE on 11/05/19 1535 Hydrocodone Bit/Acetaminophen (HYDROcodone/APAP 7.5/325 TAB) 1 Each Tablet, 1 TAB PO Q6H PRN for PAIN-MODERATE (5-7), (Reported) Entered as Reported by: MARTINE LOWE on 11/05/19 1535 Lisinopril (Lisinopril) 10 Mg Tablet, 10 MG PO DAILY@0900 Prescribed by: CM ROACH on 11/07/19 1333 Metoprolol Succinate (Metoprolol Succinate) 25 Mg Tab.er.24h, 25 MG PO HS, (Reported) Entered as Reported by: MARTINE LOWE on 11/05/19 1535 Metronidazole (Flagyl) 500 Mg Tablet, 500 MG PO TID Prescribed by: DANILO CORTES on 12/03/19 1631 Multivitamin (Multivitamins) 1 Each Tablet, 1 TAB PO HS, (Reported) Entered as Reported by: MARTINE LOWE on 11/05/19 1601 Polymyxin B Sulf/Trimethoprim (Polytrim Eye Drops) 10 Ml Drops, 2 DROP OP Q6H Prescribed by: KILEY YOUNG on 02/14/21 0220 Ticagrelor (Brilinta) 90 Mg Tablet, 90 MG PO BID Prescribed by: CM ROACH on 11/07/19 1333 Review of Systems Review of Systems Constitutional: No chills, No fever Respiratory: No cough, No short of breath Cardiovascular: No chest pain Gastrointestinal: No abdominal pain, No nausea, No vomiting Musculoskeletal: no symptoms reported Skin: no symptoms reported Psychiatric/Neurological: No Symptoms Reported Hematologic/Lymphatic: See HPI Immunological/Allergic: no symptoms reported Past Bbfrgtt-Rljojv-Cjaspn Hx Seasonal Allergies Seasonal Allergies: No Past Medical History Surgeries: Yes (cardiac stent placement 11/05/2019) Cardiac, Coronary Stent, Tonsillectomy Respiratory: No Cardiac: Yes Coronary Artery Disease, High Cholesterol, Hypertension Neurological: No Genitourinary: No Gastrointestinal: Yes (abdominal hernia) Musculoskeletal: No Endocrine: No Diabetes, Non-Insulin dep HEENT: No Cancer: No Psychosocial: Yes Depression Integumentary: No Blood Disorders: No Family Medical History CAD Under 55 Years Old Physical Exam Vital Signs Vital Signs - First Documented 07/12/21 17:12 Temp 36.3 Pulse 101 Resp 20 B/P (MAP) 161/77 (105) Pulse Ox 99 O2 Delivery Room Air Capillary Refill : Height, Weight, BMI Height: 5'9.00" Weight: 250lbs. 0oz. 113.946281ef; 37.87 BMI Method:Stated General Appearance: No Apparent Distress, WD/WN, Obese HEENT: PERRL/EOMI, Moist Mucous Membranes Neck: Non Tender, Supple Respiratory: Lungs Clear, Normal Breath Sounds Cardiovascular: Regular Rate, Rhythm, No Edema Gastrointestinal: Non Tender, Soft Extremity: Normal Capillary Refill, Normal Inspection, Normal Range of Motion Neurologic/Psychiatric: Alert, Oriented x3, No Motor/Sensory Deficits, Normal Mood/Affect, ham facer II-XII Norm as Tested Skin: Normal Color, Warm/Dry Progress/Results/Core Measures Suspected Sepsis SIRS Temperature: Pulse: Respiratory Rate: Laboratory Tests 07/12/21 17:20: White Blood Count 8.8 Blood Pressure / Mean: Laboratory Tests 07/12/21 17:20: Creatinine 0.84, Platelet Count 257, Total Bilirubin 0.4 Results/Orders Lab Results Laboratory Tests Test 07/12/21 17:12 07/12/21 17:20 07/12/21 17:22 07/12/21 18:49 Range/Units Glucometer 555 *H 393 H 70-110 MG/DL White Blood Count 8.8 4.3-11.0 10^3/uL Red Blood Count 4.88 4.30-5.52 10^6/uL Hemoglobin 15.1 13.3-17.7 g/dL Hematocrit 41 40-54 % Mean Corpuscular Volume 84 80-99 fL Mean Corpuscular Hemoglobin 31 25-34 pg Mean Corpuscular Hemoglobin Concent 37 H 32-36 g/dL Red Cell Distribution Width 12.6 10.0-14.5 % Platelet Count 257 130-400 10^3/uL Mean Platelet Volume 10.4 9.0-12.2 fL Immature Granulocyte % (Auto) 1 % Neutrophils (%) (Auto) 58 42-75 % Lymphocytes (%) (Auto) 33 12-44 % Monocytes (%) (Auto) 5 0-12 % Eosinophils (%) (Auto) 2 0-10 % Basophils (%) (Auto) 1 0-10 % Neutrophils # (Auto) 5.1 1.8-7.8 X 10^3 Lymphocytes # (Auto) 2.9 1.0-4.0 X 10^3 Monocytes # (Auto) 0.5 0.0-1.0 X 10^3 Eosinophils # (Auto) 0.2 0.0-0.3 10^3/uL Basophils # (Auto) 0.1 0.0-0.1 10^3/uL Immature Granulocyte # (Auto) 0.1 0.0-0.1 10^3/uL Sodium Level 127 L 135-145 MMOL/L Potassium Level 4.1 3.6-5.0 MMOL/L Chloride Level 94 L 98-107 MMOL/L Carbon Dioxide Level 21 21-32 MMOL/L Anion Gap 12 5-14 MMOL/L Blood Urea Nitrogen 14 7-18 MG/DL Creatinine 0.84 0.60-1.30 MG/DL Estimat Glomerular Filtration Rate 97 BUN/Creatinine Ratio 17 Glucose Level 564 *H 70-105 MG/DL Calcium Level 9.2 8.5-10.1 MG/DL Corrected Calcium 9.0 8.5-10.1 MG/DL Total Bilirubin 0.4 0.1-1.0 MG/DL Aspartate Amino Transf (AST/SGOT) 15 5-34 U/L Alanine Aminotransferase (ALT/SGPT) 25 0-55 U/L Alkaline Phosphatase 126 40-136 U/L Total Protein 6.6 6.4-8.2 GM/DL Albumin 4.2 3.2-4.5 GM/DL Urine Color YELLOW Urine Clarity CLEAR Urine pH 5.5 5-9 Urine Specific [place] <=1.005 1.016-1.022 Urine Protein NEGATIVE NEGATIVE Urine Glucose (UA) 3+ H NEGATIVE Urine Ketones 1+ H NEGATIVE Urine Nitrite NEGATIVE NEGATIVE Urine Bilirubin NEGATIVE NEGATIVE Urine Urobilinogen 0.2 < = 1.0 MG/DL Urine Leukocyte Esterase NEGATIVE NEGATIVE Urine RBC (Auto) NEGATIVE NEGATIVE Urine RBC NONE /HPF Urine WBC RARE /HPF Urine Crystals NONE /LPF Urine Bacteria NEGATIVE /HPF Urine Casts NONE /LPF Urine Mucus NEGATIVE /LPF Urine Culture Indicated NO My Orders Orders - YOUNG,KILEY L DO Cbc With Automated Diff (07/12/21 17:17) Comprehensive Metabolic Panel (07/12/21 17:17) Ua Culture If Indicated (07/12/21 17:17) Accucheck Stat ONCE (07/12/21 17:17) Ns Iv 1000 Ml (Sodium Chloride 0.9%) (07/12/21 17:17) Ns Iv 1000 Ml (Sodium Chloride 0.9%) (07/12/21 18:07) Insulin (Regular) Human (Novolin R (Per (07/12/21 18:15) Accucheck Stat ONCE (07/12/21 18:40) Medications Given in ED Current Medications Medications Dose Ordered Sig/Moni Route Start Time Stop Time Status Last Admin Dose Admin Insulin Human Regular 10 unit ONCE ONCE SC 07/12/21 18:15 07/12/21 18:16 DC 07/12/21 18:15 10 UNIT Vital Signs/I&O 07/12/21 17:12 Temp 36.3 Pulse 101 Resp 20 B/P (MAP) 161/77 (105) Pulse Ox 99 O2 Delivery Room Air Capillary Refill : Progress Note : Progress Note Patient with longstanding uncontrolled diabetes. I discussed with patient the need to call her primary care provider who just recently started him on Metformin and discussed in the morning get started on insulin regimen. Discussed with him that because I do not know his A1c and his baseline blood glucose comfortable starting him based on a one-time reading in the ER. Patient voices understanding, will call his provider in the morning is discharged home Departure Impression Primary Impression: Hyperglycemia Additional Impression: Type 2 diabetes mellitus Qualified Codes: E11.9 - Type 2 diabetes mellitus without complications Disposition: HOME, SELF-CARE Condition: Stable Departure-Patient Inst. Referrals: NAVIN LANZA MD (PCP/Family) Primary Care Physician Patient Instructions: High Blood Sugar, Adult, Type 2 Diabetes (DC) Add. Discharge Instructions: Call your primary care provider in the morning and discuss starting an insulin regiment with them. Take your already prescribed diabetic medications as pres criKILEY Palma DO Jul 12, 2021 17:15
[2021-07-12] MEDS ORDERED: NS IV 1000 ML 1,000 ML IV STA ×2 (17:17→18:07)
[2021-07-12 17:29] LABS: BILIRUBIN,URINE NEGATIVE (NEGATIVE); CLARITY,URINE CLEAR; COLOR,URINE YELLOW; GLUCOSE, URINE (UA) 3+ (NEGATIVE); KETONES,URINE 1+ (NEGATIVE); LEUKOCYTE ESTERASE ,URINE NEGATIVE (NEGATIVE); NITRITE,URINE NEGATIVE (NEGATIVE); PH,URINE 5.5 (5-9); PROTEIN,URINE NEGATIVE (NEGATIVE)
[2021-07-12 17:38] LABS: BACTERIA,URINE NEGATIVE /HPF; WBC,URINE RARE /HPF
[2021-07-12 17:51] LABS: HEMATOCRIT 41 % (40-54); HEMOGLOBIN 15.1 g/dL (13.3-17.7); MEAN CORPUSCULAR HEMOGLOBIN 31 pg (25-34); MEAN CORPUSCULAR HGB CONC 37 g/dL (32-36); MEAN CORPUSCULAR VOLUME 84 fL (80-99); WHITE BLOOD COUNT 8.8 10^3/uL (4.3-11.0)
[2021-07-12 17:52] LABS: BASOPHILS # (AUTO) 0.1 10^3/uL (0.0-0.1); BASOPHILS % (AUTO) 1 % (0-10); EOSINOPHILS # (AUTO) 0.2 10^3/uL (0.0-0.3); EOSINOPHILS % (AUTO) 2 % (0-10); LYMPHOCYTES # (AUTO) 2.9 X 10^3 (1.0-4.0); LYMPHOCYTES % (AUTO) 33 % (12-44); MEAN PLATELET VOLUME 10.4 fL (9.0-12.2); MONOCYTES # (AUTO) 0.5 X 10^3 (0.0-1.0); MONOCYTES % (AUTO) 5 % (0-12); NEUTROPHILS # (AUTO) 5.1 X 10^3 (1.8-7.8); NEUTROPHILS % (AUTO) 58 % (42-75); PLATELET COUNT 257 10^3/uL (130-400)
[2021-07-12 17:54] LABS: ALBUMIN 4.2 GM/DL (3.2-4.5); BILIRUBIN,TOTAL 0.4 MG/DL (0.1-1.0); CALCIUM 9.2 MG/DL (8.5-10.1); CREATININE SERUM 0.84 MG/DL (0.60-1.30); POTASSIUM 4.1 MMOL/L (3.6-5.0); TOTAL PROTEIN 6.6 GM/DL (6.4-8.2)
[2021-07-12] MEDS ORDERED: inSUlin (REGULAR) HUMAN 1 UNIT/0.01 ML (CHARGE PER UNIT) SC ONE (18:15)
[2021-07-12 19:01] VITALS: BP 159/75
== END 2021-07-12 19:01 | disposition home or self-care (01) ==
LOC: EDUNIT# 17:06 → ER FS 17:07
DX: E11.65 Type 2 diabetes mellitus with hyperglycemia (principal); I10 Essential (primary) hypertension; E78.00 Pure hypercholesterolemia, unspecified; I25.10 Atherosclerotic heart disease of native coronary artery without angina pectoris; F32.9 Major depressive disorder, single episode, unspecified; E66.9 Obesity, unspecified; Z68.37 Body mass index [BMI] 37.0-37.9, adult; Z79.82 Long term (current) use of aspirin; Z79.899 Other long term (current) drug therapy
CPT/HCPCS: 36415; 80053; 81000; 82947; 85025

== ENCOUNTER 2022-01-08 11:00 | Day surgery (SDC) | payer MEDICAID ==
[2022-01-08] VITALS (11 sets, daily range): BP systolic 101–132; BP diastolic 70–89
[~2022-01-08] VITALS: Ht 175.3 cm; Wt 113.8 kg
[2022-01-08 09:38] LABS: HEMATOCRIT 44 % (40-54); HEMOGLOBIN 15.1 g/dL (13.3-17.7); MEAN CORPUSCULAR HEMOGLOBIN 31 pg (25-34); MEAN CORPUSCULAR HGB CONC 34 g/dL (32-36); MEAN CORPUSCULAR VOLUME 90 fL (80-99); MEAN PLATELET VOLUME 10.2 fL (9.0-12.2); PLATELET COUNT 247 10^3/uL (130-400); WHITE BLOOD COUNT 8.9 10^3/uL (4.3-11.0)
[2022-01-08 09:55] LABS: INR 0.9 (0.8-1.4); PROTHROMBIN TIME PATIENT 12.7 SEC (12.2-14.7)
[2022-01-08 10:05] LABS: ALANINE AMINOTRANSFERASE 83 U/L (0-55); ALBUMIN 4.6 GM/DL (3.2-4.5); ALKALINE PHOSPHATASE 46 U/L (40-136); BILIRUBIN,TOTAL 0.4 MG/DL (0.1-1.0); BUN/CREATININE RATIO 11; CALCIUM 9.7 MG/DL (8.5-10.1); CARBON DIOXIDE 23 MMOL/L (21-32); CHLORIDE 110 MMOL/L (98-107); CHOLESTEROL 147 MG/DL (< 200); CREATININE SERUM 1.35 MG/DL (0.60-1.30); GFR ESTIMATED 64; GLUCOSE 110 MG/DL (70-105); HDL CHOLESTEROL 28 MG/DL (40-60); POTASSIUM 4.3 MMOL/L (3.6-5.0); SODIUM 142 MMOL/L (135-145); TOTAL PROTEIN 6.8 GM/DL (6.4-8.2); TRIGLYCERIDES 196 MG/DL (<150); VLDL CHOLESTEROL 39 MG/DL (5-40)
[~2022-01-08 11:00] MED LIST changes: +CITA20TA9 PO; +CLOP75TA28 PO; +FENO145T26 PO; +FLUT9.9S NS; +GABA300C PO; +HEParin (CATH LAB) 2,000 ML IV ONE; +HYDR-3820 PO; +LIDOCAINE 1% INJ 50 ML (XYLOCAINE) VIAL ONE; +LISI30TA5 PO; +METF-865 PO; +MIDAZOLAM 5 MG/5 ML (VERSED) VIAL ONE; +MULT-1136 PO; +NS IV 1000 ML 1,000 ML IV SCH; +NS IV 1000 ML 1,000 ML ONE; +OMEP40CA6 PO; +RT-ALBUINH IH; +SITA100T12 PO; +fentaNYL INJ 100 MCG/2 ML AMP ONE
--- NOTE | 2022-01-08 11:28 | Cardiac Procedure Note-CS/ASA ---
Pre-Procedure Note Pre-Op Procedure Note H&P Reviewed The H&P was reviewed, patient examined and no changes noted. Date H&P Reviewed: Jan 08, 2022 Time H&P Reviewed: 10:30 Conscious Sedation Pre-Proced Time 10:30 ASA Score 3 For ASA 3 and 4: Consider anesthesia and medical clearance. Also, for patients with a history of failed moderate sedation consider anesthesia. Airway Lungs Heart ASA score ASA 1: a normal healthy patient ASA 2: a patient with a mild systemic disease (mid diabetes, controlled hypertension, obesity ASA 3: a patient with a severe systemic disease that limits activity (angina, COPD, prior Myocardial infarction) ASA 4: a patient with an incapacitating disease that is a constant threat to life (CHF, renal failure) ASA 5: a moribund patient not expected to survive 24 hrs. (ruptured aneurysm) ASA 6: a declared brain- patient whose organs are being harvested. For emergent operations, add the letter E after the classification Mallampati Classification Grade 2 Sedation Plan Analgesia, Amnesia, Plan communicated to team members, Discussed options with patient/fam, Discussed risks with patient/fam The patient is an appropriate candidate to undergo the planned procedure, sedation, and anesthesia. The patient immediately re-assessed prior to indication. CITLALI EVERETT MD FACP FAC CCDS Jan 08, 2022 11:28
[2022-01-08] MEDS ORDERED: NS IV 1000 ML 1,000 ML IV SCH (11:30)
[2022-01-08] MEDS ORDERED: PATIENT MAY USE OWN MEDS, ALL PO SCH (11:30)
--- NOTE | 2022-01-08 11:44 | Discharge Inst-Cardiology ---
Discharge Inst-Cardiac Discharge Medications Continued Medications: Albuterol Sulfate (Proair Hfa) 1 Puff Puff 2 PUFF IH Q4H PRN for SHORTNESS OF BREATH, EA Aspirin (Aspirin EC) 81 Mg Tablet.dr 81 MG PO DAILY, TAB Citalopram Hydrobromide (Citalopram HBr) 20 Mg Tablet 20 MG PO HS, TAB Clopidogrel Bisulfate (Clopidogrel) 75 Mg Tablet 75 MG PO HS, TAB Fenofibrate Nanocrystallized (Fenofibrate) 145 Mg Tablet 145 MG PO DAILY, TAB Fluticasone Propionate (Flonase Allergy Relief) 9.9 Ml [place].susp 1 SPRAY NS DAILY PRN for ALLERGIES, EACH Gabapentin (Neurontin) 300 Mg Capsule 300 MG PO TID, CAP Hydrocodone/Acetaminophen (Hydrocodone-Acetamin 10-325 mg) 1 Each Tablet 1 EACH PO BID PRN for PAIN-MODERATE (5-7), TAB Lisinopril (Lisinopril) 30 Mg Tablet 30 MG PO DAILY, TAB Metoprolol Succinate (Metoprolol Succinate) 25 Mg Tab.er.24h 37.5 MG PO DAILY, TAB TAKES 1 (25MG) TABLETS Multivitamin (Multivitamin) 1 Each Tablet 1 EACH PO HS, TAB Omeprazole (Omeprazole) 40 Mg Capsule.dr 40 MG PO HS, CAP Sitagliptin Phosphate (Januvia) 100 Mg Tablet 100 MG PO HS, TAB Discontinued Medications: Atorvastatin Calcium (Atorvastatin Calcium) 80 Mg Tablet 80 MG PO DAILY, TAB Metformin HCl (Metformin HCl ER) 500 Mg Tab.er.24h 1000 MG PO BID, TAB TAKES 2 (500MG) TABLETS Patient Instructions Patient Instructions: Resume METFORMIN at current dose beginning on 01/11/22 CITLALI EVERETT MD FACP FAC CCDS Jan 08, 2022 11:44
--- NOTE | 2022-01-08 11:45 | Discharge Inst-Post CATH ---
Discharge Inst-CATH/EP Post Cardiac Cath/EP D/C Inst Follow Up/Plan F/u at Dr Perez in 3 weeks Please have labs drawn a day or two before the f/u at Dr Lopez'vitaly <b>CARDIAC CATH/EP PROCEDURE DISCHARGE INSTRUCTIONS</b> ACTIVITY * Go Home directly and rest. * Limit activity of the leg (or wrist if it was used) for 7 days including aerob ics, swimming, jogging, bicycling, etc. * Restrict stair-climbing for 7 days if possible, if not, climb up with your non-cath leg, then bring together on the same step. * Avoid lifting, pushing, pulling or excessive movement of the affected extremity for 7 days. * Customary sexual activity may be resumed after 2 days-use caution not to use a position that strains or causes pain to the affected extremity. * No driving for 24 hours. * NO SMOKING. * Avoid straining for bowel movements for 7 days. * Gentle walking on level ground is allowed. * Returning to work will depend on the type of procedure and the results. Your doctor will discuss this with you. CALL YOUR DOCTOR FOR ANY OF THE FOLLOWING: *If bleeding from the puncture site occurs- Apply gentle pressure to site with clean cloth and call your doctor or EMS. * If a knot or lump forms under the skin, increases in size, or causes pain. * If bruising appears to be worsening or moving further down your leg instead of disappearing. * Temperature above 101 F. CARE OF YOUR GROIN INCISION; * Bruising or purple discoloration of the skin near the puncture site is common. * You may shower only, no bathtub bathing for 5 days. Be careful to avoid slipping as your leg may feel stiff. * If a closure device was used on your femoral artery, please see the attached guide regarding care of the device and your leg. * Leave dressing on FOR 24 hours. CARE OF YOUR WRIST INCISION; * Bruising or purple discoloration of the skin near the puncture site is common. * You may shower. * DO NOT submerge wrist. * Leave dressing on FOR 24 hours. CITLALI LOPEZ MD FACP FAC CCDS Jan 08, 2022 11:45
--- NOTE | 2022-01-08 15:44 | CARDIAC CATHETERIZATION ---
DATE OF SERVICE: 01/08/2022 CARDIAC CATHETERIZATION REPORT The patient is a 51-year-old gentleman who has coronary artery disease and who has had stenting of the right coronary artery in October [address] Clay. He had a Xience Shana 2.5 x 12 mm stent placed in the right coronary artery. Lately, he has had recurrent symptoms and feels that the symptoms are similar to what he had prior to his previous coronary stenting. He continues to have multiple coronary risk factors. Cardiac catheterization was carried out today after having obtained an informed consent. DESCRIPTION OF PROCEDURE: He was brought to the cardiac catheterization laboratory in a fasting state. Right groin was prepared and draped in the usual sterile fashion. Lidocaine 1% was used for local anesthesia. Modified Seldinger technique was used to advance a 5-Kenyan sheath into the right femoral artery, 5-Kenyan JL4 catheter for left coronary angiography, 5-Kenyan JR4 catheter for right coronary angiography, 5-Kenyan pigtail catheter was used for left heart catheterization and left ventricular angiography. Angiography of the right femoral artery was carried out through the sheath. Mynx was used to achieve hemostasis. He tolerated the procedure well. HEMODYNAMICS: Left ventricular end-diastolic pressure following coronary angiography was 18 mmHg. There was no significant pressure gradient on pullback across the aortic valve. Ascending aortic pressure was 104/70 with a mean 84 mmHg. CORONARY ANGIOGRAPHY: Left main coronary artery is free of significant disease. Left anterior descending and left circumflex arteries have minor plaques. Left circumflex artery has a patent stent in its mid portion. No significant obstructive disease is seen in the right coronary artery. Right coronary artery is dominant. CONCLUSIONS: 1. Angiographically mild coronary artery disease. 2. Patent stent in the right coronary, known to be Xience Shana 3.0 x 12 mm, placed in 10/2019. 3. Mild elevation of left ventricular end-diastolic pressure. 4. Normal global left ventricular systolic function with an ejection fraction approximately 60%. DISCUSSION AND RECOMMENDATIONS: Based on results of the study, it appears appropriate to continue a conservative approach. We have advised him to continue his cardiac regimen. We have advised immediate and complete cessation of smoking. Outpatient followup is advised. Job ID: [id number] DocumentID: [id number] Dictated Date: 01/08/2022 11:24:09 Vp Cardiovascular Date: 01/08/2022 15:43:30 Dictated By: CITLALI EVERETT MD, MA, FACP, FACC,
== END 2022-01-08 15:30 | disposition home or self-care (01) ==
LOC: CATH 11:00 → SDC 11:25 → CATH 15:30
PROVIDERS: ATTEND Internal Medicine Cardiovascular Disease
DX: R07.89 Other chest pain (principal); I25.10 Atherosclerotic heart disease of native coronary artery without angina pectoris; F17.210 Nicotine dependence, cigarettes, uncomplicated; I65.23 Occlusion and stenosis of bilateral carotid arteries; I10 Essential (primary) hypertension; E11.9 Type 2 diabetes mellitus without complications; E78.2 Mixed hyperlipidemia; Z95.5 Presence of coronary angioplasty implant and graft; Z79.02 Long term (current) use of antithrombotics/antiplatelets; Z79.82 Long term (current) use of aspirin; Z79.899 Other long term (current) drug therapy; Z79.84 Long term (current) use of oral hypoglycemic drugs
CPT/HCPCS: 36415; 80053; 80061; 85027; 85610; 85730; 87081; 93458

== ENCOUNTER 2022-06-13 14:20 | Observation (INO) | payer MEDICAID ==
[~2022-06-13] VITALS: Ht 175.3 cm; Wt 112.1 kg
[~2022-06-13 14:20] MED LIST changes: -HEParin (CATH LAB) 2,000 ML IV ONE; -LIDOCAINE 1% INJ 50 ML (XYLOCAINE) VIAL ONE; -MIDAZOLAM 5 MG/5 ML (VERSED) VIAL ONE; -NS IV 1000 ML 1,000 ML IV SCH; -NS IV 1000 ML 1,000 ML ONE; -fentaNYL INJ 100 MCG/2 ML AMP ONE
--- NOTE | 2022-06-13 14:55 | ED General ---
General Chief Complaint: Exposure Stated Complaint: CRAMPS; HEAT EXPOSURE Source of Information: Patient History of Present Illness Date Seen by Provider: Jun 13, 2022 Time Seen by Provider: 14:49 Initial Comments 51-year-old male presenting with complaints of body cramps especially on the upper half of his body and chest. He was concerned that he had may be been out in the heat too much or gotten dehydrated. He denies any vomiting, diarrhea, excessive work outside. He states he does have some nausea but feels like it is nothing out of the usual for him. He has some mild shortness of breath as well. He feels more lightheaded and dizzy especially if he stands up. He recently had a UTI and took antibiotics for that. He denies any pain or burning with urination now. He has had decreased urine output. He felt the symptoms had been worse since around 9 AM Timing/Duration: 4-6 Hours Severity: Severe Modifying Factors: worse with Movement (Getting up and walking makes it worse) Associated Systoms: Chest Pain (Cramping pain in his chest); No Cough; Diaphoresis; No Fever/Chills, No Headaches, No Loss of Appetite; Malaise, Nausea/Vomiting (Nausea but no vomiting); No Rash, No Seizure; Shortness of Air; No Syncope; Weakness Allergies and Home Medications Allergies Coded Allergies: No Known Drug Allergies (Unverified , 04/08/13) Patient Home Medication List Home Medication List Reviewed: Yes Albuterol Sulfate (Proair Hfa) 1 Puff Puff, 2 PUFF IH Q4H PRN for SHORTNESS OF BREATH, (Reported) Entered as Reported by: REGINALD DICKERSON on 01/08/22 1034 Aspirin (Aspirin EC) 81 Mg Tablet.dr, 81 MG PO DAILY, (Reported) Entered as Reported by: MARTINE LOWE on 11/05/19 1556 Citalopram Hydrobromide (Citalopram HBr) 20 Mg Tablet, 20 MG PO HS, (Reported) Entered as Reported by: REGINALD DICKERSON on 01/08/22 1031 Clopidogrel Bisulfate (Clopidogrel) 75 Mg Tablet, 75 MG PO HS, (Reported) Entered as Reported by: REGINALD DICKERSON on 01/08/22 1031 Fenofibrate Nanocrystallized (Fenofibrate) 145 Mg Tablet, 145 MG PO DAILY, (Reported) Entered as Reported by: REGINALD DICKERSON on 01/08/22 1031 Fluticasone Propionate (Flonase Allergy Relief) 9.9 Ml [place].susp, 1 SPRAY NS DAILY PRN for ALLERGIES, (Reported) Entered as Reported by: REGINALD DICKERSON on 01/08/22 1031 Gabapentin (Neurontin) 300 Mg Capsule, 300 MG PO TID, (Reported) Entered as Reported by: REGINALD DICKERSON on 01/08/22 1031 Hydrocodone/Acetaminophen (Hydrocodone-Acetamin 10-325 mg) 1 Each Tablet, 1 EACH PO BID PRN for PAIN-MODERATE (5-7), (Reported) Entered as Reported by: REGINALD DICKERSON on 01/08/22 1031 Lisinopril (Lisinopril) 30 Mg Tablet, 30 MG PO DAILY, (Reported) Entered as Reported by: REGINALD DICKERSON on 01/08/22 1031 Metoprolol Succinate (Metoprolol Succinate) 25 Mg Tab.er.24h, 37.5 MG PO DAILY, (Reported) Entered as Reported by: REGINALD DICKERSON on 01/08/22 103 Multivitamin (Multivitamin) 1 Each Tablet, 1 EACH PO HS, (Reported) Entered as Reported by: REGINALD DICKERSON on 01/08/22 103 Omeprazole (Omeprazole) 40 Mg Capsule.dr, 40 MG PO HS, (Reported) Entered as Reported by: REGINALD DICKERSON on 01/08/22 103 Sitagliptin Phosphate (Januvia) 100 Mg Tablet, 100 MG PO HS, (Reported) Entered as Reported by: REGINALD DICKERSON on 01/08/22 103 Review of Systems Review of Systems Constitutional: No chills; diaphoresis, dizziness (With standing); No fever; malaise EENTM: no symptoms reported Respiratory: No cough; short of breath; No stridor, No wheezing Cardiovascular: see HPI Gastrointestinal: No abdominal pain, No diarrhea; nausea; No vomiting Genitourinary: decreased output; No dysuria Musculoskeletal: no symptoms reported Skin: No rash Psychiatric/Neurological: Weakness Hematologic/Lymphatic: Denies Blood Clots Past Nrxelsw-Spsxxt-Ugjlda Hx Seasonal Allergies Seasonal Allergies: No Past Medical History Surgery/Hospitalization HX: DM Type II, Graves DZ, HTN, Hyperlipidemia, Angina Surgeries: Yes (cardiac stent placement 11/05/2019) Cardiac, Coronary Stent, Tonsillectomy Respiratory: No COPD Currently Using CPAP: No Currently Using BIPAP: No Cardiac: Yes Coronary Artery Disease, High Cholesterol, Hypertension Neurological: No Genitourinary: No Gastrointestinal: Yes (abdominal hernia) Gastroesophageal Reflux Musculoskeletal: No Endocrine: No Diabetes, Non-Insulin dep HEENT: No Cancer: No Psychosocial: Yes Depression Integumentary: No Blood Disorders: No Family Medical History CAD Under 55 Years Old Physical Exam Vital Signs Vital Signs - First Documented 06/13/22 14:40 Pulse 89 Resp 15 B/P (MAP) 95/64 (74) O2 Delivery Room Air Capillary Refill : Height, Weight, BMI Height: 5'9.00" Weight: 250lbs. 0oz. 113.550216wb; 37.03 BMI Method:Stated General Appearance: Mild Distress, Obese Eyes: Bilateral Eye PERRL, Bilateral Eye EOMI HEENT: No Moist Mucous Membranes (Slightly dry mucous membranes) Neck: Full Range of Motion, Normal Inspection, Non Tender, Supple Respiratory: Chest Non Tender, Lungs Clear, Normal Breath Sounds, No Accessory Muscle Use, No Respiratory Distress Cardiovascular: Regular Rate, Rhythm, No Murmur, Normal Peripheral Pulses Gastrointestinal: Normal Bowel Sounds, No Pulsatile Mass, Non Tender, Soft Rectal: Deferred Extremity: Normal Capillary Refill, Normal Inspection, Normal Range of Motion, No Pedal Edema Neurologic/Psychiatric: Alert, Oriented x3, international marketing intern II-XII Norm as Tested Skin: Diaphoresis, Pallor Progress/Results/Core Measures Suspected Sepsis SIRS Temperature: Pulse: Respiratory Rate: Laboratory Tests 06/13/22 14:57: White Blood Count 13.5H Blood Pressure / Mean: Laboratory Tests 06/13/22 14:57: Creatinine 3.44H, INR Comment 0.9, Platelet Count 263, Total Bilirubin 0.7 Results/Orders Lab Results Laboratory Tests Test 06/13/22 14:42 06/13/22 14:57 Range/Units Urine Color YELLOW Urine Clarity CLEAR Urine pH 5.5 5-9 Urine Specific [place] 1.025 H 1.016-1.022 Urine Protein NEGATIVE NEGATIVE Urine Glucose (UA) NEGATIVE NEGATIVE Urine Ketones NEGATIVE NEGATIVE Urine Nitrite NEGATIVE NEGATIVE Urine Bilirubin NEGATIVE NEGATIVE Urine Urobilinogen 0.2 < = 1.0 MG/DL Urine Leukocyte Esterase NEGATIVE NEGATIVE Urine RBC (Auto) NEGATIVE NEGATIVE Urine RBC NONE /HPF Urine WBC 0-2 /HPF Urine Squamous Epithelial Cells RARE /HPF Urine Crystals NONE /LPF Urine Bacteria NEGATIVE /HPF Urine Casts PRESENT /LPF Urine Hyaline Casts 0-2 H /LPF Urine Mucus SMALL H /LPF Urine Culture Indicated NO Urine Opiates Screen POSITIVE H NEGATIVE Urine Oxycodone Screen NEGATIVE NEGATIVE Urine Methadone Screen NEGATIVE NEGATIVE Urine Propoxyphene Screen NEGATIVE NEGATIVE Urine Barbiturates Screen NEGATIVE NEGATIVE Ur Tricyclic Antidepressants Screen NEGATIVE NEGATIVE Urine Phencyclidine Screen NEGATIVE NEGATIVE Urine Amphetamines Screen NEGATIVE NEGATIVE Urine Methamphetamines Screen NEGATIVE NEGATIVE Urine Benzodiazepines Screen NEGATIVE NEGATIVE Urine Cocaine Screen NEGATIVE NEGATIVE Urine Cannabinoids Screen NEGATIVE NEGATIVE White Blood Count 13.5 H 4.3-11.0 10^3/uL Red Blood Count 4.94 4.30-5.52 10^6/uL Hemoglobin 15.6 13.3-17.7 g/dL Hematocrit 43 40-54 % Mean Corpuscular Volume 87 80-99 fL Mean Corpuscular Hemoglobin 32 25-34 pg Mean Corpuscular Hemoglobin Concent 36 32-36 g/dL Red Cell Distribution Width 13.8 10.0-14.5 % Platelet Count 263 130-400 10^3/uL Mean Platelet Volume 10.3 9.0-12.2 fL Immature Granulocyte % (Auto) 1 % Neutrophils (%) (Auto) 64 42-75 % Lymphocytes (%) (Auto) 27 12-44 % Monocytes (%) (Auto) 6 0-12 % Eosinophils (%) (Auto) 1 0-10 % Basophils (%) (Auto) 1 0-10 % Neutrophils # (Auto) 8.7 H 1.8-7.8 10^3/uL Lymphocytes # (Auto) 3.7 1.0-4.0 10^3/uL Monocytes # (Auto) 0.9 0.0-1.0 10^3/uL Eosinophils # (Auto) 0.2 0.0-0.3 10^3/uL Basophils # (Auto) 0.1 0.0-0.1 10^3/uL Immature Granulocyte # (Auto) 0.1 0.0-0.1 10^3/uL Neutrophils % (Manual) % Prothrombin Time 12.9 12.2-14.7 SEC INR Comment 0.9 0.8-1.4 Activated Partial Thromboplast Time 28 24-35 SEC Sodium Level 136 135-145 MMOL/L Potassium Level 4.4 3.6-5.0 MMOL/L Chloride Level 97 L 98-107 MMOL/L Carbon Dioxide Level 23 21-32 MMOL/L Anion Gap 16 H 5-14 MMOL/L Blood Urea Nitrogen 29 H 7-18 MG/DL Creatinine 3.44 H 0.60-1.30 MG/DL Estimat Glomerular Filtration Rate 21 BUN/Creatinine Ratio 8 Glucose Level 101 70-105 MG/DL Calcium Level 11.3 H 8.5-10.1 MG/DL Corrected Calcium 8.5-10.1 MG/DL Magnesium Level 1.6 1.6-2.4 MG/DL Total Bilirubin 0.7 0.1-1.0 MG/DL Aspartate Amino Transf (AST/SGOT) 60 H 5-34 U/L Alanine Aminotransferase (ALT/SGPT) 114 H 0-55 U/L Alkaline Phosphatase 71 40-136 U/L Troponin I < 0.30 <0.30 NG/ML Pro-B-Type Natriuretic Peptide 70.5 <125.0 PG/ML Total Protein 7.9 6.4-8.2 GM/DL Albumin 5.1 H 3.2-4.5 GM/DL Lipase 106 H 8-78 U/L My Orders Orders - PEDRO PERERA MD Cbc With Automated Diff (06/13/22 15:06) Magnesium (06/13/22 15:06) Chest 1 View Ap/Pa Only (06/13/22 15:06) Ekg Tracing (06/13/22 15:06) Comprehensive Metabolic Panel (06/13/22 15:06) Protime With Inr (06/13/22 15:06) Partial Thromboplastin Time (06/13/22 15:06) O2 (06/13/22 15:06) Monitor-Rhythm Ecg Trace Only (06/13/22 15:06) Ed Iv/Invasive Line Start (06/13/22 15:06) Lipase (06/13/22 15:06) Troponin I Fs (06/13/22 15:06) Probnp Fs (06/13/22 15:06) Ua Culture If Indicated (06/13/22 15:06) Drug Screen Stat (Urine) (06/13/22 15:06) Ns Iv 1000 Ml (Sodium Chloride 0.9%) (06/13/22 15:18) Manual Differential (06/13/22 14:57) Ns Iv 1000 Ml (Sodium Chloride 0.9%) (06/13/22 16:37) Ed Admission (Communication) (06/13/22 16:41) Vital Signs/I&O 06/13/22 14:40 Pulse 89 Resp 15 B/P (MAP) 95/64 (74) O2 Delivery Room Air Capillary Refill : Progress Note #1: Progress Note Obtain electrocardiogram and basic labs as well as chest x-ray. Give normal saline 1 L IV fluid bolus. Urinalysis and urine drug screen to check for dehydration and other sources of having low blood pressure and feeling bad. Progress Note #2: Progress Note CBC showed mild elevation of his white blood cell count to 13.5. His chemistry panel showed elevated BUN to 29 and creatinine of 3.44. In January his creatinine was 1.3 and in 2020 it was 0.8. He had troponin less than 0.3. His magnesium was slightly low at 1.6. His electrocardiogram did not show any acute significant abnormality and no ST elevation. His chest x-ray was clear without any acute process. His blood pressure was improving with IV fluid bolus. Urinalysis showed elevated specific gravity utricle along with some dehydration but no signs of infection. His urine drug screen showed opiates for his chronic pain. [address] Arredondo and will admit patient for dehydration and acute renal failure. Repeat IVF bolus here and then NS at 125 mL/hr. Observation patient for admit. ECG Initial ECG Impression Date: Jun 13, 2022 Initial ECG Impression Time: 14:58 Initial ECG Rate: 84 Initial ECG Rhythm: Normal Sinus Initial ECG Comparisson: Unchanged Comment Normal sinus rhythm with a heart rate of 84 bpm. IL interval 137 ms. Nonspecific T wave flattening. No acute ST elevation. QT interval 349 ms with a QTc interval 390 ms. Overall appears similar to prior tracings in the system. Diagnostic Imaging Diagonstic Imaging: Xray Plain Films/CT/US/NM/MRI: chest Comments [facility] [place], [place] NAME: VERO JEAN [facility] REC#: [id number] PT STATUS: REG ER : 1970 PHYSICIAN: PEDRO PERERA MD ADMIT DATE: 06/13/22/ER FS Signed Date of Exam:06/13/22 CHEST 1 VIEW AP/PA ONLY INDICATION: Heat exposure, chest pain. EXAMINATION: Portable chest at 3:19 PM. FINDINGS: The heart size and pulmonary vascularity are normal. The lungs are clear. There are no effusions or pneumothoraces. IMPRESSION: No acute abnormalities in the chest. Dictated by: Dictated on workstation # [id number] Dict: 06/13/22 1522 Trans: 06/13/22 1555 [id number] Interpreted by: MADINA LERMA MD Electronically signed by: MADINA LERMA MD 06/13/22 1555 Reviewed: Reviewed by Me Departure Communication (Admissions) Time/Spoke to Admitting Phy: 16:33 d/w Dr. Arredondo and will admit for observation stay for hydration and to help with electrolytes and acute renal failure Impression Primary Impression: Acute renal failure (ARF) Qualified Codes: N17.9 - Acute kidney failure, unspecified Additional Impressions: Dehydration Hypomagnesemia Disposition: 30 STILL A PATIENT Condition: Stable Admissions Decision to Admit Reason: Admit from ER (General) Decision to Admit/Date: Jun 13, 2022 Time/Decision to Admit Time: 14:33 Departure-Patient Inst. Referrals: NAVIN LANZA MD (PCP) Primary Care Physician PEDRO PERERA MD Jun 13, 2022 14:55
[2022-06-13 15:16] LABS: BASOPHILS # (AUTO) 0.1 10^3/uL (0.0-0.1); BASOPHILS % (AUTO) 1 % (0-10); EOSINOPHILS # (AUTO) 0.2 10^3/uL (0.0-0.3); EOSINOPHILS % (AUTO) 1 % (0-10); HEMATOCRIT 43 % (40-54); HEMOGLOBIN 15.6 g/dL (13.3-17.7); LYMPHOCYTES # (AUTO) 3.7 10^3/uL (1.0-4.0); LYMPHOCYTES % (AUTO) 27 % (12-44); MEAN CORPUSCULAR HEMOGLOBIN 32 pg (25-34); MEAN CORPUSCULAR HGB CONC 36 g/dL (32-36); MEAN CORPUSCULAR VOLUME 87 fL (80-99); MEAN PLATELET VOLUME 10.3 fL (9.0-12.2); MONOCYTES # (AUTO) 0.9 10^3/uL (0.0-1.0); MONOCYTES % (AUTO) 6 % (0-12); NEUTROPHILS # (AUTO) 8.7 10^3/uL (1.8-7.8); NEUTROPHILS % (AUTO) 64 % (42-75); PLATELET COUNT 263 10^3/uL (130-400); WHITE BLOOD COUNT 13.5 10^3/uL (4.3-11.0)
[2022-06-13 15:16] LABS: BILIRUBIN,URINE NEGATIVE (NEGATIVE); CLARITY,URINE CLEAR; COLOR,URINE YELLOW; GLUCOSE, URINE (UA) NEGATIVE (NEGATIVE); KETONES,URINE NEGATIVE (NEGATIVE); LEUKOCYTE ESTERASE ,URINE NEGATIVE (NEGATIVE); NITRITE,URINE NEGATIVE (NEGATIVE); PH,URINE 5.5 (5-9); PROTEIN,URINE NEGATIVE (NEGATIVE)
[2022-06-13] MEDS ORDERED: NS IV 1000 ML 1,000 ML IV STA ×2 (15:18→16:37)
[2022-06-13 15:21] LABS: BACTERIA,URINE NEGATIVE /HPF; WBC,URINE 0-2 /HPF
[2022-06-13 15:22] LABS: HYALINE CASTS, URINE 0-2 /LPF; SQUAMOUS EPITHELIAL CELL,UR RARE /HPF
--- NOTE | 2022-06-13 15:24 | Diagnostic Imaging Report ---
INDICATION: Heat exposure, chest pain. EXAMINATION: Portable chest at 3:19 PM. FINDINGS: The heart size and pulmonary vascularity are normal. The lungs are clear. There are no effusions or pneumothoraces. IMPRESSION: No acute abnormalities in the chest. Dictated by: Dictated on workstation # [id number]
[2022-06-13 15:27] LABS: INR 0.9 (0.8-1.4); PROTHROMBIN TIME PATIENT 12.9 SEC (12.2-14.7)
[2022-06-13 15:33] LABS: AMPHETAMINE SCREEN, URINE NEGATIVE (NEGATIVE); BARBITURATE SCREEN URINE NEGATIVE (NEGATIVE); BENZODIAZEPINES SCREEN URINE NEGATIVE (NEGATIVE); CANNABINOID SCREEN, URINE NEGATIVE (NEGATIVE); COCAINE SCREEN URINE NEGATIVE (NEGATIVE); METHADONE STAT NEGATIVE (NEGATIVE); OPIATE SCREEN URINE POSITIVE (NEGATIVE); OXYCODONE STAT NEGATIVE (NEGATIVE); PROPOXYPHENE STAT NEGATIVE (NEGATIVE); TRICYCLIC ANTIDEPRESSANTS SCRE NEGATIVE (NEGATIVE)
[2022-06-13 15:34] LABS: ALANINE AMINOTRANSFERASE 114 U/L (0-55); ALBUMIN 5.1 GM/DL (3.2-4.5); ALKALINE PHOSPHATASE 71 U/L (40-136); BILIRUBIN,TOTAL 0.7 MG/DL (0.1-1.0); BUN/CREATININE RATIO 8; CALCIUM 11.3 MG/DL (8.5-10.1); CARBON DIOXIDE 23 MMOL/L (21-32); CHLORIDE 97 MMOL/L (98-107); CREATININE SERUM 3.44 MG/DL (0.60-1.30); GFR ESTIMATED 21; GLUCOSE 101 MG/DL (70-105); LIPASE 106 U/L (8-78); MAGNESIUM 1.6 MG/DL (1.6-2.4); POTASSIUM 4.4 MMOL/L (3.6-5.0); SODIUM 136 MMOL/L (135-145); TOTAL PROTEIN 7.9 GM/DL (6.4-8.2)
[2022-06-13] MEDS: NS IV 1000 ML 1,000 ML IV SCH ×2 (17:52→21:14)
[2022-06-13 19:18] VITALS: BP 111/57
[2022-06-13] MEDS: GABAPENTIN 400 MG (NEURONTIN) CAP PO SCH (22:08)
[2022-06-13 23:50] VITALS: BP 110/68
[2022-06-14] MEDS: NS IV 1000 ML 1,000 ML IV SCH ×3 (04:05→22:10)
[2022-06-14 04:13] VITALS: BP 115/72
[2022-06-14 05:32] LABS: BASOPHILS # (AUTO) 0.1 10^3/uL (0.0-0.1); BASOPHILS % (AUTO) 1 % (0-10); EOSINOPHILS # (AUTO) 0.2 10^3/uL (0.0-0.3); EOSINOPHILS % (AUTO) 3 % (0-10); HEMATOCRIT 41 % (40-54); HEMOGLOBIN 14.3 g/dL (13.3-17.7); LYMPHOCYTES # (AUTO) 2.6 10^3/uL (1.0-4.0); LYMPHOCYTES % (AUTO) 36 % (12-44); MEAN CORPUSCULAR HEMOGLOBIN 32 pg (25-34); MEAN CORPUSCULAR HGB CONC 35 g/dL (32-36); MEAN CORPUSCULAR VOLUME 90 fL (80-99); MEAN PLATELET VOLUME 10.4 fL (9.0-12.2); MONOCYTES # (AUTO) 0.5 10^3/uL (0.0-1.0); MONOCYTES % (AUTO) 7 % (0-12); NEUTROPHILS # (AUTO) 3.8 10^3/uL (1.8-7.8); NEUTROPHILS % (AUTO) 53 % (42-75); PLATELET COUNT 184 10^3/uL (130-400); WHITE BLOOD COUNT 7.2 10^3/uL (4.3-11.0)
[2022-06-14 06:04] LABS: POTASSIUM 3.9 MMOL/L (3.6-5.0)
[2022-06-14 06:05] LABS: CALCIUM 9.9 MG/DL (8.5-10.1)
[2022-06-14 06:07] LABS: TOTAL PROTEIN 6.3 GM/DL (6.4-8.2)
[2022-06-14 06:08] LABS: BILIRUBIN,TOTAL 0.5 MG/DL (0.1-1.0)
[2022-06-14 06:10] LABS: CREATININE SERUM 2.04 MG/DL (0.60-1.30)
[2022-06-14 08:20] VITALS: BP 132/85
[2022-06-14] MEDS: GABAPENTIN 400 MG (NEURONTIN) CAP PO SCH ×2 (09:14→19:58)
[2022-06-14] MEDS: NICOTINE 21 MG (NICODERM) PATCH TD SCH (10:25)
[2022-06-14 11:37] VITALS: BP 128/70
[2022-06-14] MEDS ORDERED: HYDR-3820 PO (12:20)
[2022-06-14] MEDS ORDERED: IBUP-2473 PO (12:20)
[2022-06-14] MEDS ORDERED: METF-865 PO (12:20)
[2022-06-14] MEDS ORDERED: GABA-490 PO (12:20)
[2022-06-14] MEDS ORDERED: ATOR80TA76 PO (12:20)
[2022-06-14] MEDS ORDERED: RT-ALBUTEROL SULF 2.5 MG/3 ML PRE-MIX VIAL IH PRN (13:15)
--- NOTE | 2022-06-14 13:37 | History & Physical-Hospitalist ---
BRONWYN PICKETT 06/14/22 1337: History of Present Illness HPI/Chief Complaint Nita Barron is a 51y/o M w/ a PMH of DM type 2, HTN, CAD, and HLD who presented yesterday due to upper body cramps and dizziness. Pt reports that around 9am yesterday he began having upper body cramps and became lightheaded and dizzy when he would stand up. He had been working in a house that did not have any air conditioning. States that he had been drinking a lot and was having decreased urine output. Endorses sweating profusely while he was working. Reports that he had a similar episode about a month ago when he had a UTI. Today he says that he is feeling better but does still feel a little weak. Denies any dizziness or lightheadedness. No chest pain. Source: patient Exam Limitations: no limitations Date Seen 06/14/22 Attending Physician Ro Snyder MD PCP Admitting Physician: Kaila Arredondo MD Attending Physician: Lissett Haley DO Referring Physician Date of Admission Jun 13, 2022 at 16:36 Home Medications & Allergies Home Medications Reviewed patient Home Medication Reconciliation performed by pharmacy medication reconciliations geodetic technician and/or nursing. Patients Allergies have been reviewed. Allergies Allergies Coded Allergies No Known Drug Allergies (Unverified04/08/13) Past Dikptmf-[place]-Gxrjpo Hx Patient Social History Marrital Status: Tobacco Use?: Yes Tobacco type used: Cigarettes Smoking Status: Current Everyday Smoker Smokeless Tobacco Frequency: Never a User Use of E-Cig and/or Vaping dev: No Use of E-Cig and/or Vaping [place]: Never a User Substance use?: No Alcohol Use?: No Pt feels they are or have been: No Immunizations Up To Date Tetanus Booster (TDap): Unknown Hepatitis A: No Hepatitis B: No Seasonal Allergies Seasonal Allergies: No Current Status Advance Directives: No Communicates: Verbally Primary Language: Estonian Preferred Spoken Language: Estonian Is interpretation needed?: No Sensory deficits: Vision impairment Implanted or Applied Medical D: Stents Past Medical History Surgeries: Cardiac, Coronary Stent, Tonsillectomy COPD Currently Using CPAP: No Currently Using BIPAP: No Coronary Artery Disease, High Cholesterol, Hypertension Gastroesophageal Reflux Diabetes, Non-Insulin dep Depression Blood Disorders: No Family Medical History Cancer (father- bone,), CAD Under 55 Years Old Review of Systems Constitutional: No chills, No diaphoresis, No fever EENTM: No ear pain, No blurred vision, No eye pain Respiratory: No cough, No short of breath Cardiovascular: No chest pain, No palpitations Gastrointestinal: No abdominal pain, No nausea, No vomiting Genitourinary: No dysuria, No hematuria Musculoskeletal: muscle weakness (says due to the cramps yesterday) Psychiatric/Neurological: Denies Headache, Denies Numbness, Denies Paresthesia Physical Exam Physical Exam Vital Signs Vital Signs - First Documented 06/13/22 06/13/22 14:40 18:03 Temp 36.5 Pulse 89 Resp 15 B/P (MAP) 95/64 (74) Pulse Ox 98 O2 Delivery Room Air Capillary Refill : Less Than 3 Seconds Height, Weight, BMI Height: 5'9.00" Weight: 250lbs. 0oz. 113.890930dm; 36.47 BMI Method:Stated General Appearance: No Apparent Distress, Obese HEENT: PERRL/EOMI; No Photophobia Respiratory: Lungs Clear, Normal Breath Sounds, No Accessory Muscle Use Cardiovascular: Regular Rate, Rhythm, No Murmur, Normal Peripheral Pulses Gastrointestinal: Non Tender Extremity: Normal Capillary Refill, Non Tender, No Calf Tenderness, No Pedal Edema Neurologic/Psychiatric: Alert, Oriented x3, Normal Mood/Affect Skin: Normal Color, Warm/Dry Lymphatic: No Adenopathy Results Results/Procedures Labs Laboratory Tests 06/13/22 14:57 06/14/22 05:15 Patient resulted labs reviewed. Assessment/Plan Admission Diagnosis Heat exhaustion JACQUELINE Diabetes mellitus type 2 Peripheral neuropathy HTN Depression Anxiety Nicotine dependence Assessment and Plan Heat exhaustion -continue IV fluids (NS 125mL/hr) -blood pressure has returned to normal range -will continue to monitor JACQUELINE -BUN:29 and Cr:3.44 yesterday, improved to BUN:26 and Cr:2.04 today -continue IV fluids -will recheck RFTs tomorrow morning Diabetes mellitus type 2 -diabetic diet -start SSI -continue to monitor Peripheral neuropathy -start home gabapentin HTN -start home metoprolol Depression/anxiety -start home celexa Nicotine dependence -nicotine patch ordered Plan is to discharge tomorrow morning after reviewing labs if they have improved DVT prophylaxis-SCDs Code status:full code Clinical Quality Measures AMI/AHF: ASA po Prior to arrival: No LISSETT HALEY DO 06/14/222046: History of Present Illness Source: patient Exam Limitations: no limitations Time Seen by a Provider: 11:30 Past Siexwkg-Bljyew-Ztonqw Hx Patient Social History Marrital Status: Employed/Student: employed Tobacco Use?: Yes Tobacco type used: Cigarettes Past Medical History Coronary Artery Disease, High Cholesterol, Hypertension Review of Systems Constitutional: see HPI Physical Exam Physical Exam General Appearance: No Apparent Distress, Chronically ill, Obese Respiratory: Lungs Clear, Normal Breath Sounds Cardiovascular: Regular Rate, Rhythm Assessment/Plan Admission Diagnosis Assessment: 1. Heat exhaustion 2 Acute kidney injury 3. Elevated liver enzymes 4. Obesity 5. Hypertension 6. GERD 7. Chronic back pain Admission Status: Observation Diagnosis/Problems Diagnosis/Problems (1) Acute renal failure (ARF) Qualifiers: Acute renal failure type: unspecified Qualified Codes: N17.9 - Acute kidney failure, unspecified (2) Hypomagnesemia Status: Acute (3) Dehydration Status: Acute (4) Elevated liver enzymes Supervisory-Addendum Brief Verification & Attestation Participated in pt care: history, MDM, physical Personally performed: exam, history, MDM, supervision of care Care discussed with: Medical Student Procedures: n/a Results interpretation: Verified all documentation Verification and Attestation of Medical Student E/M Service A medical student performed and documented this service in my presence. I reviewed and verified all information documented by the medical student and made modifications to such information, when appropriate. I personally performed the physical exam and medical decision making. Lissett Haley Jun 14, 2022,20:47 BRONWYN PICKETT Jun 14, 2022 13:37 LISSETT HALEY DO Jun 14, 2022 20:47
[2022-06-14 16:01] VITALS: BP 135/81
[2022-06-14 19:52] VITALS: BP 125/77
[2022-06-14] MEDS ORDERED: DOCUSATE SODIUM 100 MG (COLACE) CAP PO PRN (21:00)
[2022-06-14] MEDS ORDERED: ALPRAZolam 0.25 MG (XANAX) TAB PO PRN (21:00)
[2022-06-14] MEDS ORDERED: CALCIUM CARBONATE 500 MG (TUMS) TAB.CHEW PO PRN (21:00)
[2022-06-14] MEDS ORDERED: ONDANSETRON 4 MG (ZOFRAN) ORAL DISSOLVE TAB PO PRN (21:00)
[2022-06-14] MEDS ORDERED: ONDANSETRON 4 MG/2 ML (SDV) Z0FRAN IVP PRN (21:00)
[2022-06-14] MEDS ORDERED: BISACODYL 10 MG SUPP (DULCOLAX) PR PRN (21:00)
[2022-06-14] MEDS ORDERED: ENOXAPARIN 40 MG/0.4 ML (LOVENOX) SYR SC SCH (21:00)
[2022-06-14] MEDS ORDERED: LOPERAMIDE 2 MG (IMODIUM) TABLET PO PRN (21:00)
[2022-06-14] MEDS ORDERED: ACETAMINOPHEN 325 MG TABLET PO PRN (21:00)
[2022-06-14] MEDS ORDERED: diphenhydrAMINE 25 MG TAB (BENADRYL) PO PRN (21:00)
[2022-06-14] MEDS ORDERED: MELATONIN 3 MG TABLET PO PRN (21:00)
[2022-06-14] MEDS ORDERED: PANTOPRAZOLE 40 MG (PROTONIX) TAB PO SCH (21:00)
[2022-06-14] MEDS ORDERED: guaiFENesin/CODEINE (ROBITUSSIN AC) 10ML UDC PO PRN (21:00)
[2022-06-14] MEDS: polyethylene glycoL POWDER 17 GM (MIRALAX) PACK PO SCH (22:04)
[2022-06-14] MEDS: SENNA W/DOCUSATE (SENOKOT S) TABLET PO SCH (22:05)
[2022-06-15] VITALS: BP 122/69
[2022-06-15 03:38] VITALS: BP 128/70
[2022-06-15 06:08] LABS: BASOPHILS # (AUTO) 0.1 10^3/uL (0.0-0.1); BASOPHILS % (AUTO) 1 % (0-10); EOSINOPHILS # (AUTO) 0.2 10^3/uL (0.0-0.3); EOSINOPHILS % (AUTO) 3 % (0-10); HEMATOCRIT 42 % (40-54); HEMOGLOBIN 14.5 g/dL (13.3-17.7); LYMPHOCYTES # (AUTO) 2.7 10^3/uL (1.0-4.0); LYMPHOCYTES % (AUTO) 35 % (12-44); MEAN CORPUSCULAR HEMOGLOBIN 31 pg (25-34); MEAN CORPUSCULAR HGB CONC 35 g/dL (32-36); MEAN CORPUSCULAR VOLUME 90 fL (80-99); MEAN PLATELET VOLUME 10.8 fL (9.0-12.2); MONOCYTES # (AUTO) 0.5 10^3/uL (0.0-1.0); MONOCYTES % (AUTO) 7 % (0-12); NEUTROPHILS # (AUTO) 4.1 10^3/uL (1.8-7.8); NEUTROPHILS % (AUTO) 54 % (42-75); PLATELET COUNT 171 10^3/uL (130-400); WHITE BLOOD COUNT 7.6 10^3/uL (4.3-11.0)
[2022-06-15] MEDS: NS IV 1000 ML 1,000 ML IV SCH (06:16)
[2022-06-15 06:34] LABS: POTASSIUM 4.2 MMOL/L (3.6-5.0)
[2022-06-15 06:35] LABS: CALCIUM 9.5 MG/DL (8.5-10.1)
[2022-06-15 06:36] LABS: TOTAL PROTEIN 6.5 GM/DL (6.4-8.2)
[2022-06-15 06:38] LABS: BILIRUBIN,TOTAL 0.4 MG/DL (0.1-1.0)
[2022-06-15 06:40] LABS: CREATININE SERUM 1.19 MG/DL (0.60-1.30)
[2022-06-15] MEDS ORDERED: MULTIVIT W/MINERALS TAB (THERAGRAN M) PO SCH (07:00)
[2022-06-15 07:51] VITALS: BP 129/83
[2022-06-15] MEDS: GABAPENTIN 400 MG (NEURONTIN) CAP PO SCH (08:56)
[2022-06-15] MEDS: NICOTINE 21 MG (NICODERM) PATCH TD SCH (08:56)
[2022-06-15] MEDS: polyethylene glycoL POWDER 17 GM (MIRALAX) PACK PO SCH (08:57)
[2022-06-15] MEDS: SENNA W/DOCUSATE (SENOKOT S) TABLET PO SCH (08:57)
[2022-06-15] MEDS ORDERED: PATCH REMOVAL TP SCH (08:59)
[2022-06-15] MEDS ORDERED: ASPIRIN E.C. 81 MG (ECOTRIN) TAB PO SCH (09:00)
[2022-06-15] MEDS ORDERED: NF-NACL1GT PO (11:16)
--- NOTE | 2022-06-15 11:16 | Discharge Summary ---
Discharge Summary Hospital Course Was the Problem List Reviewed?: Yes Problems/Dx: (1) Acute renal failure (ARF) Qualifiers: Qualified Codes: N17.9 - Acute kidney failure, unspecified (2) Hypomagnesemia Status: Acute (3) Dehydration Status: Acute (4) Elevated liver enzymes Hospital Course Date of Admission: Jun 13, 2022 at 16:36 Admission Diagnosis : Family Physician/Provider: Ro Snyder MD Date of Discharge: 06/15/22 Discharge Diagnosis: Heat exhaustion, acute kidney injury, elevated liver enzymes Hospital Course: Short hospital course after he was admitted after heat exhaustion with acute kidney injury of 3.4 for creatinine which decreased to 2 next day and then 1.19 at time of discharge. Elevated liver enzymes improved. Overall he was ready for discharge in improved condition. Labs and Pending Lab Test: Laboratory Tests 06/14/22 22:24: Total Creatine Kinase 279H 06/15/22 05:28: White Blood Count 7.6, Red Blood Count 4.62, Hemoglobin 14.5, Hematocrit 42, Me an Corpuscular Volume 90, Mean Corpuscular Hemoglobin 31, Mean Corpuscular Hemoglobin Concent 35, Red Cell Distribution Width 13.6, Platelet Count 171, Mean Platelet Volume 10.8, Immature Granulocyte % (Auto) 1, Neutrophils (%) (Auto) 54, Lymphocytes (%) (Auto) 35, Monocytes (%) (Auto) 7, Eosinophils (%) (Auto) 3, Basophils (%) (Auto) 1, Neutrophils # (Auto) 4.1, Lymphocytes # (Auto) 2.7, Monocytes # (Auto) 0.5, Eosinophils # (Auto) 0.2, Basophils # (Auto) 0.1, Immature Granulocyte # (Auto) 0.1, Sodium Level 138, Potassium Level 4.2, Chloride Level 108H, Carbon Dioxide Level 20L, Anion Gap 10, Blood Urea Nitrogen 16, Creatinine 1.19, Estimat Glomerular Filtration Rate 74, BUN/Creatinine Ratio 13, Glucose Level 123H, Calcium Level 9.5, Corrected Calcium 9.5, Total Bilirubin 0.4, Aspartate Amino Transf (AST/SGOT) 44H, Alanine Aminotransferase (ALT/SGPT) 94H, Alkaline Phosphatase 57, Total Protein 6.5, Albumin 4.0 Home Meds Active Sodium Chloride 1 Gram Tab 1 Gm PO BID Reported Ibuprofen 200 Mg Tablet 800 Mg PO Q8H PRN Hydrocodone-Acetamin 10-325 mg (Hydrocodone/Acetaminophen) 10 Mg-325 Mg Tablet 1 Each PO DAILY PRN TAKES 1 TAB DAILY AND THEN TAKES 1 TAB THROUGHOUT THE DAY WHEN NEEDED Atorvastatin Calcium 80 Mg Tablet 80 Mg PO DAILY Metformin HCl ER (Metformin HCl) 500 Mg Tab.er.24h 1,000 Mg PO BID TAKES 2 (500MG) TABS LAST FILLED 04-23-2022 #120/30 DAY SUPPLY Gabapentin 400 Mg Capsule 400 Mg PO BID Proair Hfa (Albuterol Sulfate) 1 Puff Puff 2 Puff IH Q4H PRN Omeprazole 40 Mg Capsule. 40 Mg PO HS Multivitamin 1 Each Tablet 1 Each PO DAILY Metoprolol Succinate 25 Mg Tab.er.24h 37.5 Mg PO HS TAKES 1 (25MG) TABLETS LAST FILLED 02-04-2022 #135/90 DAY SUPPLY Lisinopril 30 Mg Tablet 30 Mg PO HS Januvia (Sitagliptin Phosphate) 100 Mg Tablet 100 Mg PO HS Hydrocodone-Acetamin 10-325 mg (Hydrocodone/Acetaminophen) 10 Mg-325 Mg Tablet 1 Each PO DAILY TAKES 1 TAB DAILY AND THEN TAKES 1 TAB THROUGHOUT THE DAY WHEN NEEDED Fenofibrate (Fenofibrate Nanocrystallized) 145 Mg Tablet 145 Mg PO DAILY LAST FILLED 02-26-2022 #90/90 DAY SUPPLY Citalopram HBr (Citalopram Hydrobromide) 20 Mg Tablet 20 Mg PO HS LAST FILLED 04-23-2022 #30/30 DAY SUPPLY Aspirin EC (Aspirin) 81 Mg Tablet. 81 Mg PO DAILY Assessment/Pt Instructions PCP in 1 week Discharge Planning: <30 minutes discharge planning Discharge Instructions Discharge Diet: No Restrictions Discharge Physical Examination Vital Signs Vital Signs Date Time Temp Pulse Resp B/P (MAP) Pulse Ox O2 Delivery O2 Flow Rate FiO2 06/15/22 08:00 Room Air 06/15/22 07:51 36.9 77 18 129/83 (98) 96 General Appearance: No Apparent Distress, WD/WN, Chronically ill Respiratory: Lungs Clear Cardiovascular: Regular Rate, Rhythm Neurologic/Psychiatric: Alert, Oriented x3, No Motor/Sensory Deficits, Normal Mood/Affect Allergies: Coded Allergies: No Known Drug Allergies (Unverified , 04/08/13) Discharge Summary Date of Admission Jun 13, 2022 at 16:36 Date of Discharge Discharge Date: Jun 15, 2022 Admission Diagnosis Assessment: 1. Heat exhaustion 2 Acute kidney injury 3. Elevated liver enzymes 4. Obesity 5. Hypertension 6. GERD 7. Chronic back pain Discharge Diagnosis (1) Acute renal failure (ARF) Qualifiers: Qualified Codes: N17.9 - Acute kidney failure, unspecified (2) Hypomagnesemia Status: Acute (3) Dehydration Status: Acute (4) Elevated liver enzymes Clinical Quality Measures AMI/AHF: ASA po Prior to arrival: NICOLE Aguirre DO Jun 15, 2022 11:16
[2022-06-15 11:26] VITALS: BP 129/77
[2022-06-15 11:50] VITALS: BP 129/77
== END 2022-06-15 11:14 | disposition home or self-care (01) ==
LOC: EDUNIT# 14:20 → ER FS 14:22 → UNDOADMOB 16:36 → 4TH 16:36 → UNDODISOB 06-15 11:47
PROVIDERS: ADMIT Family Medicine; ATTEND Internal Medicine
DX: N17.9 Acute kidney failure, unspecified (principal); E83.42 Hypomagnesemia; E86.0 Dehydration; R74.8 Abnormal levels of other serum enzymes; F17.210 Nicotine dependence, cigarettes, uncomplicated; E11.42 Type 2 diabetes mellitus with diabetic polyneuropathy; F32.A Depression, unspecified; F41.9 Anxiety disorder, unspecified; I10 Essential (primary) hypertension; K21.9 Gastro-esophageal reflux disease without esophagitis; E66.9 Obesity, unspecified; G89.29 Other chronic pain; M54.9 Dorsalgia, unspecified; Z68.36 Body mass index [BMI] 36.0-36.9, adult; Z79.82 Long term (current) use of aspirin; Z79.899 Other long term (current) drug therapy
CPT/HCPCS: 36415; 71045; 80053; 80306; 81000; 82550; 83690; 83735; 83880; 84484; 85007; 85025; 85027; 85610; 85730; 93005; 93041; G0378

== ENCOUNTER 2022-10-01 13:52 | Emergency (ER) | payer MEDICAID ==
[~2022-10-01] VITALS: Ht 182 cm; Wt 110.0 kg
[~2022-10-01 13:52] MED LIST changes: +ALBU8.5H6 IH; +GABA-490 PO; +IBUP-2473 PO; +NF-NACL1GT PO; -RT-ALBUINH IH
[2022-10-01] MEDS ORDERED: LACTATED RINGERS 1,000 ML IV STA (14:01)
--- NOTE | 2022-10-01 14:01 | ED General ---
General Chief Complaint: Glucose Problems Stated Complaint: HIGH BLOOD SUGAR/DIZZY History of Present Illness Date Seen by Provider: Oct 01, 2022 Time Seen by Provider: 14:00 Initial Comments 52-year-old male presents with high blood sugars. He has been urinating a lot and is little dizzy. Patient reports he has a history of diabetes and been on metformin. His sugars are usually running around 120s 130s. That he got the "flulike illness" that been going around last week and ever since then he has be en unable to get his blood sugars down. Patient reports that over the weekend his glucometer read high. Over the last 2 days has been reading in the upper 400s to mid 500s. Patient is not on insulin. He states that prior to the illness he was having no difficulty keeping his blood sugars under control on the metformin. He denies any nausea or vomiting. Allergies and Home Medications Allergies Coded Allergies: No Known Drug Allergies (Unverified , 04/08/13) Patient Home Medication List Home Medication List Reviewed: Yes Albuterol Sulfate (Ventolin Hfa) 1 Puff Puff, 2 PUFF IH Q4H PRN for SHORTNESS OF BREATH, (Reported) Entered as Reported by: REGINALD DICKERSON on 01/08/22 1034 Aspirin (Aspirin EC) 81 Mg Tablet.dr, 81 MG PO DAILY, (Reported) Entered as Reported by: MARTINE LOWE on 11/05/19 1556 Atorvastatin Calcium (Atorvastatin Calcium) 80 Mg Tablet, 80 MG PO DAILY, (Reported) Entered as Reported by: MARIELLE PEREZ on 06/14/22 1220 Citalopram Hydrobromide (Citalopram HBr) 20 Mg Tablet, 20 MG PO HS, (Reported) Entered as Reported by: REGINALD DICKERSON on 01/08/22 1031 Fenofibrate Nanocrystallized (Fenofibrate) 145 Mg Tablet, 145 MG PO DAILY, (Reported) Entered as Reported by: REGINALD DICKERSON on 01/08/22 1031 Gabapentin (Gabapentin) 400 Mg Capsule, 400 MG PO BID, (Reported) Entered as Reported by: MARIELLE PEREZ on 06/14/22 1220 Hydrocodone/Acetaminophen (Hydrocodone-Acetamin 10-325 mg) 10 Mg-325 Mg Tablet, 1 EACH PO DAILY, (Reported) Entered as Reported by: REGINALD DICKERSON on 01/08/22 1031 Hydrocodone/Acetaminophen (Hydrocodone-Acetamin 10-325 mg) 10 Mg-325 Mg Tablet, 1 EACH PO DAILY PRN for PAIN-MODERATE (5-7), (Reported) Entered as Reported by: MARIELLE PEREZ on 06/14/22 1220 Metformin HCl (Metformin HCl ER) 500 Mg Tab.er.24h, 1,000 MG PO BID, (Reported) Entered as Reported by: MARIELLE PEREZ on 06/14/22 1220 Metoprolol Succinate (Metoprolol Succinate) 25 Mg Tab.er.24h, 37.5 MG PO HS, (Reported) Entered as Reported by: REGINALD DICKERSON on 01/08/22 1031 Multivitamin (Multivitamin) 1 Each Tablet, 1 EACH PO DAILY, (Reported) Entered as Reported by: REGINALD DICKERSON on 01/08/22 1031 Omeprazole (Omeprazole) 40 Mg Capsule.dr, 40 MG PO HS, (Reported) Entered as Reported by: REGINALD DICKERSON on 01/08/22 1031 Sitagliptin Phosphate (Januvia) 100 Mg Tablet, 100 MG PO HS, (Reported) Entered as Reported by: REGINALD DICKERSON on 01/08/22 1031 Sodium Chloride (Sodium Chloride) 1 Gram Tab, 1 GM PO BID Prescribed by: NICOLE HALEY on 06/15/22 1116 Review of Systems Review of Systems Constitutional: No chills; dizziness; No fever; malaise EENTM: no symptoms reported Respiratory: no symptoms reported Cardiovascular: no symptoms reported Gastrointestinal: no symptoms reported Genitourinary: frequency Musculoskeletal: no symptoms reported Skin: no symptoms reported Psychiatric/Neurological: No Symptoms Reported Past Fxlwlrq-Wyybyi-Rakogb Hx Seasonal Allergies Seasonal Allergies: No Past Medical History Surgery/Hospitalization HX: DM Type II, Graves DZ, HTN, Hyperlipidemia, Angina Surgeries: Yes (cardiac stent placement 11/05/2019) Cardiac, Coronary Stent, Tonsillectomy Respiratory: No COPD Currently Using CPAP: No Currently Using BIPAP: No Cardiac: Yes Coronary Artery Disease, High Cholesterol, Hypertension Neurological: No Genitourinary: No Gastrointestinal: Yes (abdominal hernia) Gastroesophageal Reflux Musculoskeletal: No Endocrine: No Diabetes, Non-Insulin dep HEENT: No Cancer: No Psychosocial: Yes Depression Integumentary: No Blood Disorders: No Family Medical History Cancer, CAD Under 55 Years Old Physical Exam Vital Signs Vital Signs - First Documented 10/01/22 14:13 Pulse 92 Resp 18 B/P (MAP) 127/73 (91) Pulse Ox 98 Capillary Refill : Height, Weight, BMI Height: 5'9.00" Weight: 250lbs. 0oz. [id number]; 36.47 BMI Method:Stated General Appearance: No Apparent Distress, WD/WN Eyes: Bilateral Eye Normal Inspection, Bilateral Eye PERRL HEENT: PERRL/EOMI, Pharynx Normal Neck: Normal Inspection, Non Tender Respiratory: Lungs Clear, Normal Breath Sounds Cardiovascular: Regular Rate, Rhythm, No Edema Gastrointestinal: Non Tender, Soft Extremity: Normal Capillary Refill, Normal Inspection, Normal Range of Motion Neurologic/Psychiatric: Alert, Oriented x3 Skin: Normal Color, Warm/Dry Progress/Results/Core Measures Suspected Sepsis SIRS Temperature: Pulse: Respiratory Rate: Laboratory Tests 10/01/22 14:07: White Blood Count 11.1H Blood Pressure / Mean: Laboratory Tests 10/01/22 14:07: Creatinine 1.00, Platelet Count 245, Total Bilirubin 0.4 Results/Orders Lab Results Laboratory Tests Test 10/01/22 14:00 10/01/22 14:07 10/01/22 15:16 10/01/22 16:28 Range/Units Glucometer 547 *H 356 H 70-110 MG/DL White Blood Count 11.1 H 4.3-11.0 10^3/uL Red Blood Count 4.81 4.30-5.52 10^6/uL Hemoglobin 15.0 13.3-17.7 g/dL Hematocrit 41 40-54 % Mean Corpuscular Volume 84 80-99 fL Mean Corpuscular Hemoglobin 31 25-34 pg Mean Corpuscular Hemoglobin Concent 37 H 32-36 g/dL Red Cell Distribution Width 11.9 10.0-14.5 % Platelet Count 245 130-400 10^3/uL Mean Platelet Volume 10.6 9.0-12.2 fL Immature Granulocyte % (Auto) 1 % Neutrophils (%) (Auto) 72 42-75 % Lymphocytes (%) (Auto) 22 12-44 % Monocytes (%) (Auto) 4 0-12 % Eosinophils (%) (Auto) 1 0-10 % Basophils (%) (Auto) 1 0-10 % Neutrophils # (Auto) 8.0 H 1.8-7.8 10^3/uL Lymphocytes # (Auto) 2.4 1.0-4.0 10^3/uL Monocytes # (Auto) 0.5 0.0-1.0 10^3/uL Eosinophils # (Auto) 0.1 0.0-0.3 10^3/uL Basophils # (Auto) 0.1 0.0-0.1 10^3/uL Immature Granulocyte # (Auto) 0.1 0.0-0.1 10^3/uL Sodium Level 130 L 135-145 MMOL/L Potassium Level 4.2 3.6-5.0 MMOL/L Chloride Level 93 L 98-107 MMOL/L Carbon Dioxide Level 23 21-32 MMOL/L Anion Gap 14 5-14 MMOL/L Blood Urea Nitrogen 15 7-18 MG/DL Creatinine 1.00 0.60-1.30 MG/DL Estimat Glomerular Filtration Rate 91 BUN/Creatinine Ratio 15 Glucose Level 565 *H 70-105 MG/DL Calcium Level 10.0 8.5-10.1 MG/DL Corrected Calcium 9.7 8.5-10.1 MG/DL Magnesium Level 1.7 1.6-2.4 MG/DL Total Bilirubin 0.4 0.1-1.0 MG/DL Aspartate Amino Transf (AST/SGOT) 54 H 5-34 U/L Alanine Aminotransferase (ALT/SGPT) 85 H 0-55 U/L Alkaline Phosphatase 106 40-136 U/L Total Protein 7.0 6.4-8.2 GM/DL Albumin 4.4 3.2-4.5 GM/DL Urine Color YELLOW Urine Clarity CLEAR Urine pH 6.0 5-9 Urine Specific [place] 1.010 L 1.016-1.022 Urine Protein NEGATIVE NEGATIVE Urine Glucose (UA) 3+ H NEGATIVE Urine Ketones NEGATIVE NEGATIVE Urine Nitrite NEGATIVE NEGATIVE Urine Bilirubin NEGATIVE NEGATIVE Urine Urobilinogen 0.2 < = 1.0 MG/DL Urine Leukocyte Esterase NEGATIVE NEGATIVE Urine RBC (Auto) NEGATIVE NEGATIVE Urine RBC RARE /HPF Urine WBC RARE /HPF Urine Squamous Epithelial Cells NONE /HPF Urine Crystals NONE /LPF Urine Bacteria NEGATIVE /HPF Urine Casts NONE /LPF Urine Mucus NEGATIVE /LPF Urine Culture Indicated NO Test 10/01/22 17:39 Range/Units Glucometer 255 H 70-110 MG/DL My Orders Orders - KILEY YOUNG DO Cbc With Automated Diff (10/01/22 14:01) Comprehensive Metabolic Panel (10/01/22 14:01) Magnesium (10/01/22 14:01) Ua Culture If Indicated (10/01/22 14:01) Beta Hydroxybutyrate (10/01/22 14:01) Hemoglobin A1c (10/01/22 14:01) Ed Iv/Invasive Line Start (10/01/22 14:01) Lactated Ringers (Lr 1000 Ml Iv Solution (10/01/22 14:15) Lactated Ringers (Lr 1000 Ml Iv Solution (10/01/22 14:01) Accucheck Stat ONCE (10/01/22 15:48) Ns Iv 1000 Ml (Sodium Chloride 0.9%) (10/01/22 16:32) Insulin (Regular) Human (Novolin R (Per (10/01/22 21:00) Insulin (Regular) Human (Novolin R (Per (10/01/22 16:55) Accucheck Stat ONCE (10/01/22 17:16) Medications Given in ED Current Medications Medications Dose Ordered Sig/Moni Route Start Time Stop Time Status Last Admin Dose Admin Insulin Human Regular 1 unit STK-MED ONCE .ROUTE 10/01/22 16:55 10/01/22 16:58 DC 10/01/22 17:00 1 UNIT Lactated Ringer's 1,000 ml @ 0 mls/hr Q0M ONCE IV 10/01/22 14:15 10/01/22 14:16 DC 10/01/22 15:03 1,000 MLS/HR Vital Signs/I&O 10/01/22 14:13 Pulse 92 Resp 18 B/P (MAP) 127/73 (91) Pulse Ox 98 Capillary Refill : Progress Note : Progress Note Patient with hyperglycemia that responded well to IV fluids and a small amount of insulin. Discussed with him to monitor over the next couple days and if it remains elevated but below 300 recommend he follows up with his primary care provider and consider further outpatient medication and possible insulin after the holidays. If he has difficulty keeping it down he should return to the ER for further treatment and possible hospitalization. Patient voices understanding. Patient stable and discharged home Departure Impression Primary Impression: Type 2 diabetes mellitus Qualified Codes: E11.9 - Type 2 diabetes mellitus without complications Additional Impression: Hyperglycemia Disposition: 01 HOME, SELF-CARE Condition: Stable Departure-Patient Inst. Referrals: NAVIN LANZA MD (PCP/Family) Primary Care Physician Patient Instructions: Type 2 Diabetes, High Blood Sugar, Adult ED, Sick Day Management for Diabetics Add. Discharge Instructions: Please monitor your diet and your blood sugars over the next couple days. Follow-up with your primary care provider for recheck of your symptoms and to review your diabetes management after the holiday. Return to the ER as needed All discharge instructions reviewed with patient and/or family. Voiced understanding. KILEY YOUNG DO Oct 01, 2022 14:01
[2022-10-01 14:13] VITALS: BP 127/73
[2022-10-01] MEDS ORDERED: LACTATED RINGERS 1,000 ML IV ONE (14:15)
[2022-10-01 14:39] LABS: BASOPHILS # (AUTO) 0.1 10^3/uL (0.0-0.1); BASOPHILS % (AUTO) 1 % (0-10); EOSINOPHILS # (AUTO) 0.1 10^3/uL (0.0-0.3); EOSINOPHILS % (AUTO) 1 % (0-10); HEMATOCRIT 41 % (40-54); LYMPHOCYTES # (AUTO) 2.4 10^3/uL (1.0-4.0); LYMPHOCYTES % (AUTO) 22 % (12-44); MEAN CORPUSCULAR HEMOGLOBIN 31 pg (25-34); MEAN CORPUSCULAR HGB CONC 37 g/dL (32-36); MEAN CORPUSCULAR VOLUME 84 fL (80-99); MEAN PLATELET VOLUME 10.6 fL (9.0-12.2); MONOCYTES # (AUTO) 0.5 10^3/uL (0.0-1.0); MONOCYTES % (AUTO) 4 % (0-12); NEUTROPHILS % (AUTO) 72 % (42-75); PLATELET COUNT 245 10^3/uL (130-400); WHITE BLOOD COUNT 11.1 10^3/uL (4.3-11.0)
[2022-10-01 14:58] LABS: BILIRUBIN,TOTAL 0.4 MG/DL (0.1-1.0); MAGNESIUM 1.7 MG/DL (1.6-2.4); POTASSIUM 4.2 MMOL/L (3.6-5.0)
[2022-10-01 14:59] LABS: ALBUMIN 4.4 GM/DL (3.2-4.5)
[2022-10-01 15:27] LABS: CLARITY,URINE CLEAR; COLOR,URINE YELLOW; GLUCOSE, URINE (UA) 3+ (NEGATIVE); KETONES,URINE NEGATIVE (NEGATIVE); PROTEIN,URINE NEGATIVE (NEGATIVE)
[2022-10-01 15:28] LABS: BACTERIA,URINE NEGATIVE /HPF; BILIRUBIN,URINE NEGATIVE (NEGATIVE); LEUKOCYTE ESTERASE ,URINE NEGATIVE (NEGATIVE); NITRITE,URINE NEGATIVE (NEGATIVE); RBC,URINE RARE /HPF; WBC,URINE RARE /HPF
[2022-10-01] MEDS ORDERED: NS IV 1000 ML 1,000 ML IV STA (16:32)
[2022-10-01] MEDS ORDERED: inSUlin (REGULAR) HUMAN 1 UNIT/0.01 ML (CHARGE PER UNIT) ONE (16:55)
[2022-10-01] MEDS ORDERED: inSUlin (REGULAR) HUMAN 1 UNIT/0.01 ML (CHARGE PER UNIT) IV SCH (21:00)
== END 2022-10-01 18:00 | disposition home or self-care (01) ==
LOC: EDUNIT# 13:52 → ER FS 13:54
DX: E11.65 Type 2 diabetes mellitus with hyperglycemia (principal); Z28.310 Unvaccinated for COVID-19; Z79.84 Long term (current) use of oral hypoglycemic drugs; Z79.4 Long term (current) use of insulin
CPT/HCPCS: 36415; 80053; 81000; 82010; 82947; 83036; 83735; 85025

== ENCOUNTER 2022-10-07 14:24 | Emergency (ER) | payer MEDICAID ==
[~2022-10-07] VITALS: Ht 175.3 cm; Wt 104.3 kg
[2022-10-07] MEDS ORDERED: inSUlin (REGULAR) HUMAN 1 UNIT/0.01 ML (CHARGE PER UNIT) SC ONE (15:00)
--- NOTE | 2022-10-07 15:01 | ED General ---
General Chief Complaint: Glucose Problems Stated Complaint: ELEV GLUCOSE Source of Information: Patient Exam Limitations: No Limitations History of Present Illness Date Seen by Provider: Oct 07, 2022 Time Seen by Provider: 14:30 Initial Comments Patient is a 52 ye male with h/o DM who presents with hyperglycemia, dizziness, and increased thirst and polyuria. No fever, chills, sweats, nausea and abdominal pain. The patient was seen in the emergency department 1 week ago for similar symptoms and has have difficulty obtaining outpatient follow-up. Timing/Duration: 4-5 Days Severity: Mild Modifying Factors: improves with Other Associated Systoms: Other Allergies and Home Medications Allergies Coded Allergies: No Known Drug Allergies (Unverified , 04/08/13) Patient Home Medication List Home Medication List Reviewed: Yes Albuterol Sulfate (Ventolin Hfa) 1 Puff Puff, 2 PUFF IH Q4H PRN for SHORTNESS OF BREATH, (Reported) Entered as Reported by: REGINALD DICKERSON on 01/08/22 1034 Aspirin (Aspirin EC) 81 Mg Tablet.dr, 81 MG PO DAILY, (Reported) Entered as Reported by: MARTINE LOWE on 11/05/19 1556 Atorvastatin Calcium (Atorvastatin Calcium) 80 Mg Tablet, 80 MG PO DAILY, (Reported) Entered as Reported by: MARIELLE PEREZ on 06/14/22 1220 Citalopram Hydrobromide (Citalopram HBr) 20 Mg Tablet, 20 MG PO HS, (Reported) Entered as Reported by: REGINALD DICKERSON on 01/08/22 1031 Fenofibrate Nanocrystallized (Fenofibrate) 145 Mg Tablet, 145 MG PO DAILY, (Reported) Entered as Reported by: REGINALD DICKERSON on 01/08/22 1031 Gabapentin (Gabapentin) 400 Mg Capsule, 400 MG PO BID, (Reported) Entered as Reported by: MARIELLE PEREZ on 06/14/22 1220 Hydrocodone/Acetaminophen (Hydrocodone-Acetamin 10-325 mg) 10 Mg-325 Mg Tablet, 1 EACH PO DAILY, (Reported) Entered as Reported by: REGINALD DICKERSON on 01/08/22 1031 Hydrocodone/Acetaminophen (Hydrocodone-Acetamin 10-325 mg) 10 Mg-325 Mg Tablet, 1 EACH PO DAILY PRN for PAIN-MODERATE (5-7), (Reported) Entered as Reported by: MARIELLE PEREZ on 06/14/22 1220 Metformin HCl (Metformin HCl ER) 500 Mg Tab.er.24h, 1,000 MG PO BID, (Reported) Entered as Reported by: MARIELLE PEREZ on 06/14/22 1220 Metoprolol Succinate (Metoprolol Succinate) 25 Mg Tab.er.24h, 37.5 MG PO HS, (Reported) Entered as Reported by: REGINALD DICKERSON on 01/08/22 1031 Multivitamin (Multivitamin) 1 Each Tablet, 1 EACH PO DAILY, (Reported) Entered as Reported by: REGINALD DICKERSON on 01/08/22 1031 Omeprazole (Omeprazole) 40 Mg Capsule.dr, 40 MG PO HS, (Reported) Entered as Reported by: REGINALD DICKERSON on 01/08/22 1031 Sitagliptin Phosphate (Januvia) 100 Mg Tablet, 100 MG PO HS, (Reported) Entered as Reported by: REGINALD DICKERSON on 01/08/22 1031 Sodium Chloride (Sodium Chloride) 1 Gram Tab, 1 GM PO BID Prescribed by: NICOLE HALEY on 06/15/22 1116 Review of Systems Review of Systems Constitutional: see HPI EENTM: see HPI Respiratory: see HPI Cardiovascular: see HPI Gastrointestinal: see HPI Genitourinary: see HPI Skin: see HPI Psychiatric/Neurological: See HPI Hematologic/Lymphatic: See HPI Immunological/Allergic: see HPI All Other Systems Reviewed Negative Unless Noted: No Past [id number]-Miqlfd Hx Patient Social History Tobacco Use?: No Seasonal Allergies Seasonal Allergies: No Past Medical History Surgery/Hospitalization HX: DM Type II, Graves DZ, HTN, Hyperlipidemia, Angina Surgeries: Yes (cardiac stent placement 11/05/2019) Cardiac, Coronary Stent, Tonsillectomy Respiratory: No COPD Currently Using CPAP: No Currently Using BIPAP: No Cardiac: Yes Coronary Artery Disease, High Cholesterol, Hypertension Neurological: No Genitourinary: No Gastrointestinal: Yes (abdominal hernia) Gastroesophageal Reflux Musculoskeletal: No Endocrine: No Diabetes, Non-Insulin dep HEENT: No Cancer: No Psychosocial: Yes Depression Integumentary: No Blood Disorders: No Family Medical History Cancer, CAD Under 55 Years Old Physical Exam Vital Signs Vital Signs - First Documented 10/07/22 14:31 Temp 36.5 Pulse 87 Resp 17 B/P (MAP) 133/86 (102) O2 Delivery Room Air Capillary Refill : Height, Weight, BMI Height: 5'9.00" Weight: 250lbs. 0oz. 113.678384gk; 33.00 BMI Method:Stated General Appearance: No Apparent Distress, WD/WN Eyes: Bilateral Eye Normal Inspection, Bilateral Eye PERRL, Bilateral Eye EOMI HEENT: PERRL/EOMI, TMs Normal Neck: Normal Inspection, Non Tender Respiratory: Chest Non Tender, Lungs Clear, Normal Breath Sounds Cardiovascular: Regular Rate, Rhythm, No Edema Gastrointestinal: Non Tender, Soft Neurologic/Psychiatric: Alert, Oriented x3 Focused Exam Sepsis Stage: Ruled Out Progress/Results/Core Measures Suspected Sepsis SIRS Temperature: Pulse: Respiratory Rate: Laboratory Tests 10/07/22 14:28: White Blood Count 11.1H Blood Pressure / Mean: Laboratory Tests 10/07/22 14:28: Creatinine 0.94, Platelet Count 266, Total Bilirubin 0.4 Results/Orders Lab Results Laboratory Tests Test 10/07/22 14:28 10/07/22 14:37 Range/Units White Blood Count 11.1 H 4.3-11.0 10^3/uL Red Blood Count 5.10 4.30-5.52 10^6/uL Hemoglobin 15.9 13.3-17.7 g/dL Hematocrit 43 40-54 % Mean Corpuscular Volume 84 80-99 fL Mean Corpuscular Hemoglobin 31 25-34 pg Mean Corpuscular Hemoglobin Concent 37 H 32-36 g/dL Red Cell Distribution Width 11.7 10.0-14.5 % Platelet Count 266 130-400 10^3/uL Mean Platelet Volume 10.4 9.0-12.2 fL Immature Granulocyte % (Auto) 1 % Neutrophils (%) (Auto) 65 42-75 % Lymphocytes (%) (Auto) 28 12-44 % Monocytes (%) (Auto) 4 0-12 % Eosinophils (%) (Auto) 2 0-10 % Basophils (%) (Auto) 1 0-10 % Neutrophils # (Auto) 7.3 1.8-7.8 10^3/uL Lymphocytes # (Auto) 3.1 1.0-4.0 10^3/uL Monocytes # (Auto) 0.5 0.0-1.0 10^3/uL Eosinophils # (Auto) 0.2 0.0-0.3 10^3/uL Basophils # (Auto) 0.1 0.0-0.1 10^3/uL Immature Granulocyte # (Auto) 0.1 0.0-0.1 10^3/uL Sodium Level 136 135-145 MMOL/L Potassium Level 3.6 3.6-5.0 MMOL/L Chloride Level 98 98-107 MMOL/L Carbon Dioxide Level 24 21-32 MMOL/L Anion Gap 14 5-14 MMOL/L Blood Urea Nitrogen 19 H 7-18 MG/DL Creatinine 0.94 0.60-1.30 MG/DL Estimat Glomerular Filtration Rate 98 BUN/Creatinine Ratio 20 Glucose Level 254 H 70-105 MG/DL Calcium Level 10.1 8.5-10.1 MG/DL Corrected Calcium 9.7 8.5-10.1 MG/DL Total Bilirubin 0.4 0.1-1.0 MG/DL Aspartate Amino Transf (AST/SGOT) 31 5-34 U/L Alanine Aminotransferase (ALT/SGPT) 68 H 0-55 U/L Alkaline Phosphatase 98 40-136 U/L Troponin I < 0.30 <0.30 NG/ML Total Protein 7.4 6.4-8.2 GM/DL Albumin 4.5 3.2-4.5 GM/DL Glucometer 233 H 70-110 MG/DL My Orders Orders - JAZMIN PRADO DO Cbc With Automated Diff (10/07/22 14:50) Comprehensive Metabolic Panel (10/07/22 14:50) Urinalysis (10/07/22 14:50) Troponin I Fs (10/07/22 14:50) Ns Iv 1000 Ml (Sodium Chloride 0.9%) (10/07/22 15:00) Accucheck Q2hr Q2HR (10/07/22 14:50) Insulin (Regular) Human (Novolin R (Per (10/07/22 15:00) Medications Given in ED Current Medications Medications Dose Ordered Sig/Moni Route Start Time Stop Time Status Last Admin Dose Admin Insulin Human Regular 10 unit ONCE ONCE SC 10/07/22 15:00 10/07/22 15:22 DC 10/07/22 15:05 10 UNIT Vital Signs/I&O 10/07/22 14:31 Temp 36.5 Pulse 87 Resp 17 B/P (MAP) 133/86 (102) O2 Delivery Room Air Capillary Refill : Departure Communication (Admissions) Patient with findings of dehydration secondary to prolonged hypoglycemic state. IV fluids given with symptomatic improvement. He is instructed to follow-up with his PCP for further management. Return precautions reviewed. Patient verbalizes understanding and agreement with discharge instructions prior to departure. Impression Primary Impression: Hyperglycemia Additional Impression: Dizziness Disposition: HOME, SELF-CARE Condition: Stable Departure-Patient Inst. Decision time for Depature: 17:11 Referrals: NAVIN LANZA MD (PCP) Primary Care Physician Patient Instructions: Dizziness, Adult ED, High Blood Sugar, Adult ED Add. Discharge Instructions: You were evaluated in the emergency department for dizziness and high blood sugar. Please go home and rest, increase fluids and follow-up with your PCP as soon as possible for further diabetic management. In the meantime, return to the emergency department if you develop new or worsening symptoms. All discharge instructions reviewed with patient and/or family. Voiced understanding. JAZMIN PRADO DO Oct 07, 2022 15:01
[2022-10-07] MEDS: NS IV 1000 ML 1,000 ML IV SCH ×2 (15:05→16:04)
[2022-10-07 15:24] LABS: BASOPHILS # (AUTO) 0.1 10^3/uL (0.0-0.1); BASOPHILS % (AUTO) 1 % (0-10); EOSINOPHILS # (AUTO) 0.2 10^3/uL (0.0-0.3); EOSINOPHILS % (AUTO) 2 % (0-10); HEMATOCRIT 43 % (40-54); HEMOGLOBIN 15.9 g/dL (13.3-17.7); LYMPHOCYTES # (AUTO) 3.1 10^3/uL (1.0-4.0); LYMPHOCYTES % (AUTO) 28 % (12-44); MEAN CORPUSCULAR HEMOGLOBIN 31 pg (25-34); MEAN CORPUSCULAR HGB CONC 37 g/dL (32-36); MEAN CORPUSCULAR VOLUME 84 fL (80-99); MEAN PLATELET VOLUME 10.4 fL (9.0-12.2); MONOCYTES # (AUTO) 0.5 10^3/uL (0.0-1.0); MONOCYTES % (AUTO) 4 % (0-12); NEUTROPHILS # (AUTO) 7.3 10^3/uL (1.8-7.8); NEUTROPHILS % (AUTO) 65 % (42-75); PLATELET COUNT 266 10^3/uL (130-400); WHITE BLOOD COUNT 11.1 10^3/uL (4.3-11.0)
[2022-10-07 15:48] LABS: ALANINE AMINOTRANSFERASE 68 U/L (0-55); ALKALINE PHOSPHATASE 98 U/L (40-136); BILIRUBIN,TOTAL 0.4 MG/DL (0.1-1.0); BUN/CREATININE RATIO 20; CALCIUM 10.1 MG/DL (8.5-10.1); CARBON DIOXIDE 24 MMOL/L (21-32); CHLORIDE 98 MMOL/L (98-107); CREATININE SERUM 0.94 MG/DL (0.60-1.30); GFR ESTIMATED 98; GLUCOSE 254 MG/DL (70-105); POTASSIUM 3.6 MMOL/L (3.6-5.0); SODIUM 136 MMOL/L (135-145)
[2022-10-07 15:49] LABS: ALBUMIN 4.5 GM/DL (3.2-4.5); TOTAL PROTEIN 7.4 GM/DL (6.4-8.2)
[2022-10-07 17:18] VITALS: BP 146/85
== END 2022-10-07 17:18 | disposition home or self-care (01) ==
LOC: EDUNIT# 14:24 → ER FS 14:26
DX: E11.65 Type 2 diabetes mellitus with hyperglycemia (principal); E86.0 Dehydration; Z28.310 Unvaccinated for COVID-19
CPT/HCPCS: 36415; 80053; 82947; 84484; 85025; 99283

== ENCOUNTER 2022-10-10 17:38 | Emergency (ER) | payer MEDICAID ==
[~2022-10-10] VITALS: Ht 175.2 cm; Wt 107.9 kg
[2022-10-10] MEDS ORDERED: NS IV 1000 ML 1,000 ML IV SCH ×2 (18:45→19:15)
[2022-10-10 18:53] LABS: ALBUMIN 4.3 GM/DL (3.2-4.5)
[2022-10-10 18:54] LABS: CALCIUM 10.3 MG/DL (8.5-10.1)
[2022-10-10 18:55] LABS: TOTAL PROTEIN 7.4 GM/DL (6.4-8.2)
[2022-10-10 18:57] LABS: BILIRUBIN,TOTAL 0.3 MG/DL (0.1-1.0)
[2022-10-10 18:59] LABS: BASOPHILS # (AUTO) 0.1 10^3/uL (0.0-0.1); BASOPHILS % (AUTO) 1 % (0-10); CREATININE SERUM 1.36 MG/DL (0.60-1.30); EOSINOPHILS # (AUTO) 0.2 10^3/uL (0.0-0.3); EOSINOPHILS % (AUTO) 2 % (0-10); HEMATOCRIT 42 % (40-54); HEMOGLOBIN 15.3 g/dL (13.3-17.7); LYMPHOCYTES # (AUTO) 2.5 10^3/uL (1.0-4.0); LYMPHOCYTES % (AUTO) 26 % (12-44); MEAN CORPUSCULAR HEMOGLOBIN 31 pg (25-34); MEAN CORPUSCULAR HGB CONC 36 g/dL (32-36); MEAN CORPUSCULAR VOLUME 86 fL (80-99); MEAN PLATELET VOLUME 11.1 fL (9.0-12.2); MONOCYTES # (AUTO) 0.5 10^3/uL (0.0-1.0); MONOCYTES % (AUTO) 5 % (0-12); NEUTROPHILS # (AUTO) 6.5 10^3/uL (1.8-7.8); NEUTROPHILS % (AUTO) 66 % (42-75); PLATELET COUNT 247 10^3/uL (130-400); WHITE BLOOD COUNT 9.9 10^3/uL (4.3-11.0)
[2022-10-10 19:02] LABS: MAGNESIUM 1.6 MG/DL (1.6-2.4)
--- NOTE | 2022-10-10 19:09 | ED General ---
General Chief Complaint: Glucose Problems Stated Complaint: ABD PAIN/DIZZY/HIGH BLOOD SUGAR Nursing Triage Note: PT ARRIVED POV WITH COMPLAINTS OF PANCREATITIS, ELEVATED BLOOD SUGAR, ABD PAIN, INCREASE IN THIRST AND DIZZINESS THAT HAS BEEN GOING ON FOR 3 WEEKS. PT WAS SEEN AT [facility] AND TOLD TO COME TO ER. Source of Information: Patient Exam Limitations: No Limitations History of Present Illness Date Seen by Provider: Oct 10, 2022 Time Seen by Provider: 17:49 Initial Comments This 52-year-old gentleman presents to the emergency room as directed by the [facility] clinic for reasons of pancreatitis and poorly controlled diabetes. He recently switched from metformin and Januvia to insulin therapy. He continues metformin but stopped Januvia as there was suspicion it caused pancreatitis. Labs performed yesterday in the clinic setting revealed a lipase of 150 with a reference range of 7-60. Patient describes having upper abdominal pain for about 3 weeks. Eating makes it worse. He retains his gallbladder. Yesterday he was started on lispro 5 units subcutaneous 3 times daily. He took his morning dose today but did not take the noon dose due to altered intake. He describes nausea without vomiting. At present, he has peritoneal signs with significant tenderness to percussion throughout the abdomen. Allergies and Home Medications Allergies Coded Allergies: gluten (Verified Allergy, Unknown, 10/10/22) hydrochlorothiazide (Verified Allergy, Unknown, 10/10/22) lisinopril (Verified Allergy, Unknown, 10/10/22) sitagliptin (Verified Adverse Reaction, Severe, Pancreatitis, 10/10/22) Patient Home Medication List Home Medication List Reviewed: Yes Albuterol Sulfate (Ventolin Hfa) 1 Puff Puff, 2 PUFF IH Q4H PRN for SHORTNESS OF BREATH, (Reported) Entered as Reported by: REGINALD DICKERSON on 01/08/22 1034 Aspirin (Aspirin EC) 81 Mg Tablet.dr, 81 MG PO DAILY, (Reported) Entered as Reported by: MARTINE LOWE on 11/05/19 1556 Atorvastatin Calcium (Atorvastatin Calcium) 80 Mg Tablet, 80 MG PO DAILY, (Reported) Entered as Reported by: MARIELLE PEREZ on 06/14/22 1220 Citalopram Hydrobromide (Citalopram HBr) 20 Mg Tablet, 20 MG PO HS, (Reported) Entered as Reported by: REGINALD DICKERSON on 01/08/22 1031 Fenofibrate Nanocrystallized (Fenofibrate) 145 Mg Tablet, 145 MG PO DAILY, (Reported) Entered as Reported by: REGINALD DICKERSON on 01/08/22 103 Gabapentin (Gabapentin) 400 Mg Capsule, 400 MG PO BID, (Reported) Entered as Reported by: MARIELLE PEREZ on 06/14/22 1220 Hydrocodone/Acetaminophen (Hydrocodone-Acetamin 10-325 mg) 10 Mg-325 Mg Tablet, 1 EACH PO DAILY, (Reported) Entered as Reported by: REGINALD DICKERSON on 01/08/22 103 Hydrocodone/Acetaminophen (Hydrocodone-Acetamin 10-325 mg) 10 Mg-325 Mg Tablet, 1 EACH PO DAILY PRN for PAIN-MODERATE (5-7), (Reported) Entered as Reported by: MARIELLE PEREZ on 06/14/22 122 Metformin HCl (Metformin HCl ER) 500 Mg Tab.er.24h, 1,000 MG PO BID, (Reported) Entered as Reported by: MARIELLE PEREZ on 06/14/22 1220 Metoprolol Succinate (Metoprolol Succinate) 25 Mg Tab.er.24h, 37.5 MG PO HS, (Reported) Entered as Reported by: REGINALD DICKERSON on 01/08/22 103 Multivitamin (Multivitamin) 1 Each Tablet, 1 EACH PO DAILY, (Reported) Entered as Reported by: REGINALD DICKERSON on 01/08/22 103 Omeprazole (Omeprazole) 40 Mg Capsule.dr, 40 MG PO HS, (Reported) Entered as Reported by: REGINALD DICKERSON on 01/08/22 103 Ondansetron (Ondansetron Odt) 4 Mg Tab.rapdis, 4 MG SL Q4H PRN for NAUSEA/VOMITING Prescribed by: FLORIN MACKEY on 10/10/222035 Sitagliptin Phosphate (Januvia) 100 Mg Tablet, 100 MG PO HS, (Reported) Entered as Reported by: REGINALD DICKERSON on 01/08/22 103 Sodium Chloride (Sodium Chloride) 1 Gram Tab, 1 GM PO BID Prescribed by: NICOLE HALEY on 06/15/22 1116 Review of Systems Review of Systems Constitutional: no symptoms reported; No fever EENTM: no symptoms reported Respiratory: no symptoms reported Cardiovascular: no symptoms reported Gastrointestinal: see HPI Genitourinary: no symptoms reported Musculoskeletal: no symptoms reported Skin: no symptoms reported Psychiatric/Neurological: No Symptoms Reported Hematologic/Lymphatic: No Symptoms Reported Endocrine: Hyperglycemia and poorly controlled diabetes Past Aecjqvn-[id number]-Iidnfm Hx Patient Social History Tobacco Use?: Yes Smoking Status: Current Everyday Smoker Use of E-Cig and/or Vaping dev: No Substance use?: No Alcohol Use?: No Seasonal Allergies Seasonal Allergies: No Past Medical History Surgery/Hospitalization HX: DM Type II, Graves DZ, HTN, Hyperlipidemia, Angina, COPD Surgeries: Yes (cardiac stent placement 11/05/2019) Abdominal (Hernia repair), Cardiac, Coronary Stent, Tonsillectomy Respiratory: Yes COPD Currently Using CPAP: No Currently Using BIPAP: No Cardiac: Yes Coronary Artery Disease, High Cholesterol, Hypertension Neurological: No Genitourinary: No Gastrointestinal: Yes (abdominal hernia repaired) Gastroesophageal Reflux Musculoskeletal: No Endocrine: Yes Diabetes, Insulin dep (Type II), Diabetes, Non-Insulin dep HEENT: No Cancer: No Psychosocial: Yes Depression Integumentary: No Blood Disorders: No Family Medical History Cancer, CAD Under 55 Years Old Physical Exam Vital Signs Vital Signs - First Documented 10/10/22 17:55 Temp 37.1 Pulse 93 B/P (MAP) 147/95 (112) Pulse Ox 97 O2 Delivery Room Air Capillary Refill : Height, Weight, BMI Height: 5'9.00" Weight: 250lbs. 0oz. [phone]; 35.00 BMI Method:Stated General Appearance: No Apparent Distress, WD/WN HEENT: PERRL/EOMI, Normal ENT Inspection Neck: Normal Inspection Respiratory: Lungs Clear, Normal Breath Sounds, No Accessory Muscle Use, No Respiratory Distress Cardiovascular: Regular Rate, Rhythm, No Edema, No Murmur Gastrointestinal: Soft, Abnormal Bowel Sounds (Decreased), Tenderness (Diffusely tender to percussion) Extremity: Normal Inspection, No Pedal Edema Neurologic/Psychiatric: Alert, Oriented x3, No Motor/Sensory Deficits, Normal Mood/Affect Skin: Normal Color, Warm/Dry Progress/Results/Core Measures Suspected Sepsis SIRS Temperature: Pulse: 93 Respiratory Rate: Laboratory Tests 10/10/22 18:05: White Blood Count 9.9 Blood Pressure 147 /95 Mean: 112 Laboratory Tests 10/10/22 18:05: Creatinine 1.36H, Platelet Count 247, Total Bilirubin 0.3 Results/Orders Lab Results Laboratory Tests Test 10/10/22 17:57 10/10/22 18:05 10/10/22 18:58 10/10/22 19:23 Range/Units Glucometer 521 *H 455 *H 70-110 MG/DL White Blood Count 9.9 4.3-11.0 10^3/uL Red Blood Count 4.95 4.30-5.52 10^6/uL Hemoglobin 15.3 13.3-17.7 g/dL Hematocrit 42 40-54 % Mean Corpuscular Volume 86 80-99 fL Mean Corpuscular Hemoglobin 31 25-34 pg Mean Corpuscular Hemoglobin Concent 36 32-36 g/dL Red Cell Distribution Width 11.7 10.0-14.5 % Platelet Count 247 130-400 10^3/uL Mean Platelet Volume 11.1 9.0-12.2 fL Immature Granulocyte % (Auto) 1 % Neutrophils (%) (Auto) 66 42-75 % Lymphocytes (%) (Auto) 26 12-44 % Monocytes (%) (Auto) 5 0-12 % Eosinophils (%) (Auto) 2 0-10 % Basophils (%) (Auto) 1 0-10 % Neutrophils # (Auto) 6.5 1.8-7.8 10^3/uL Lymphocytes # (Auto) 2.5 1.0-4.0 10^3/uL Monocytes # (Auto) 0.5 0.0-1.0 10^3/uL Eosinophils # (Auto) 0.2 0.0-0.3 10^3/uL Basophils # (Auto) 0.1 0.0-0.1 10^3/uL Immature Granulocyte # (Auto) 0.1 0.0-0.1 10^3/uL Sodium Level 128 L 135-145 MMOL/L Potassium Level 4.0 3.6-5.0 MMOL/L Chloride Level 95 L 98-107 MMOL/L Carbon Dioxide Level 21 21-32 MMOL/L Anion Gap 12 5-14 MMOL/L Blood Urea Nitrogen 18 7-18 MG/DL Creatinine 1.36 H 0.60-1.30 MG/DL Estimat Glomerular Filtration Rate 63 BUN/Creatinine Ratio 13 Glucose Level 568 *H 70-105 MG/DL Calcium Level 10.3 H 8.5-10.1 MG/DL Corrected Calcium 10.1 8.5-10.1 MG/DL Magnesium Level 1.6 1.6-2.4 MG/DL Total Bilirubin 0.3 0.1-1.0 MG/DL Aspartate Amino Transf (AST/SGOT) 24 5-34 U/L Alanine Aminotransferase (ALT/SGPT) 68 H 0-55 U/L Alkaline Phosphatase 81 40-136 U/L C-Reactive Protein High Sensitivity 0.89 H 0.00-0.50 MG/DL Total Protein 7.4 6.4-8.2 GM/DL Albumin 4.3 3.2-4.5 GM/DL Lipase 140 H 8-78 U/L Urine Color YELLOW Urine Clarity CLEAR Urine pH 5.5 5-9 Urine Specific [place] 1.015 L 1.016-1.022 Urine Protein NEGATIVE NEGATIVE Urine Glucose (UA) 3+ H NEGATIVE Urine Ketones NEGATIVE NEGATIVE Urine Nitrite NEGATIVE NEGATIVE Urine Bilirubin NEGATIVE NEGATIVE Urine Urobilinogen 0.2 < = 1.0 MG/DL Urine Leukocyte Esterase NEGATIVE NEGATIVE Urine RBC (Auto) NEGATIVE NEGATIVE Urine RBC NONE /HPF Urine WBC RARE /HPF Urine Squamous Epithelial Cells NONE /HPF Urine Crystals NONE /LPF Urine Bacteria NEGATIVE /HPF Urine Casts NONE /LPF Urine Mucus NEGATIVE /LPF Urine Culture Indicated NO Test 10/10/22 20:20 Range/Units Glucometer 413 *H 70-110 MG/DL My Orders Orders - FLORIN PINA MD Cbc With Automated Diff (10/10/22 18:23) Comprehensive Metabolic Panel (10/10/22 18:23) Lipase (10/10/22 18:23) Magnesium (10/10/22 18:23) Ed Iv/Invasive Line Start (10/10/22 18:23) Ns Iv 1000 Ml (Sodium Chloride 0.9%) (10/10/22 18:45) Insulin (Regular) Human (Novolin R (Per (10/10/22 19:15) Fentanyl Inj (Sublimaze Injection) (10/10/22 19:15) Hs C Reactive Protein (10/10/22 19:02) Ns Iv 1000 Ml (Sodium Chloride 0.9%) (10/10/22 19:15) Accucheck Stat ONCE (10/10/22 19:15) Accucheck Stat ONCE (10/10/22 19:15) Ua Culture If Indicated (10/10/22 19:49) Medications Given in ED Current Medications Medications Dose Ordered Sig/Moni Route Start Time Stop Time Status Last Admin Dose Admin Fentanyl Citrate 50 mcg ONCE ONCE IVP 10/10/22 19:15 10/10/22 19:16 DC 10/10/22 19:30 50 MCG Insulin Human Regular 10 unit ONCE ONCE SC 10/10/22 19:15 10/10/22 19:16 DC 10/10/22 19:29 10 UNIT Vital Signs/I&O 10/10/22 10/10/22 17:55 20:50 Temp 37.1 Pulse 93 84 B/P (MAP) 147/95 (112) 123/80 Pulse Ox 97 99 O2 Delivery Room Air Room Air 10/11/22 00:00 Intake Total 2000 ml Balance 2000 ml Capillary Refill : Blood Pressure Mean: 112 Point of Care Testing Finger Stick Blood Glucose: 521 Progress Note #1: Time: 19:13 Progress Note Patient has been interviewed and examined. Documentation from the clinic has been reviewed. Patient is being treated with IV normal saline and subcutaneous insulin for his hyperglycemia. Labs are being run and will be compared with yesterday's. Pain is being treated with fentanyl. Patient declines nausea medication at this time. Progress Note #2: Time: 20:27 Progress Note Patient received 10 units of insulin subcutaneously and 2 L of IV normal saline. He had a significant drop in his fingerstick blood sugar to 419. Lipase was trending down. I explained to the patient that he did not necessarily require admission as a matter of medical necessity but I did offer admission to help manage his blood sugars and provide supportive care while he recovers from pancreatitis. I also advised that his blood sugar needs further correcting before he goes home. Since his lipase is trending downward, it is likely that Januvia was the cause of his pancreatitis. It is reasonable to expect that he will continue to improve from a pancreatitis perspective while off Januvia. Patient became agitated and upset because he came here under the impression that he would be admitted to the hospital. Again, I reiterated that I am offering admission to help manage blood sugar and pancreatitis if he feels that would be most beneficial for him. I expressed understanding that his medical problems will be difficult to manage initially on an outpatient basis. Patient declined admission and did not want any further treatment for hyperglycemia. He expressed a desire to be discharged immediately and follow-up with his primary care provider. He does have hydrocodone at home to help manage his pain. He also has insulin and a glucometer at home. I will prescribe him Zofran. Departure Impression Primary Impression: Pancreatitis Qualified Codes: K85.90 - Acute pancreatitis without necrosis or infection, unspecified Additional Impressions: Hyperglycemia Acute renal insufficiency Disposition: 01 HOME, SELF-CARE Condition: Improved Departure-Patient Inst. Decision time for Depature: 20:31 Referrals: NAVIN LANZA MD (PCP/Family) Primary Care Physician Patient Instructions: Acute Pancreatitis, Diabetes and Diet, High Blood Sugar, Adult ED Add. Discharge Instructions: Adhere to a low sugar clear liquid diet for the next 24 hours. This should help improve the pancreatitis and reduce your pain. Then gradually advance your diet with small quantities of low sugar, low carbohydrate, low-fat diet as tolerated. Follow-up with your primary care provider soon as possible. You may increase your hydrocodone to 1 tablet every 6 hours as needed for pain while you recover from pancreatitis. Use Zofran as prescribed for nausea and vomiting. Continue using insulin for control of your blood sugars. I recommend using 7 units subcutaneously 3 times a day as a starting point. Check your blood sugars every 4-6 hours while you are on the clear liquid diet. If your blood sugar is greater than 300, you may take an additional 5 units of insulin at that time. If your blood sugar is less than 200, then lower the dose to 5 units for your next injection. Once you start eating, check your blood sugars 2 hours after each meal. If bl ood sugars are consistently greater than 300, change your insulin dosing to 10 units 3 times daily. Contact your primary care provider as soon as possible to help you manage your blood sugars. Return to the emergency room if you have worsening symptoms despite following these instructions. Your lipase (pancreas enzyme) needs to be followed closely by your primary care provider. Please discuss this when you call the office tomorrow. All discharge instructions reviewed with patient and/or family. Voiced understanding. Scripts Ondansetron (Ondansetron Odt) 4 Mg Tab.rapdis 4 MG SL Q4H PRN for NAUSEA/VOMITING, #10 TAB 1 Refill Prov: FLORIN PINA MD 10/10/22 Copy Copies To 1: [facility]/FLORIN TAMAYO MD Oct 10, 2022 19:09
[2022-10-10] MEDS ORDERED: inSUlin (REGULAR) HUMAN 1 UNIT/0.01 ML (CHARGE PER UNIT) SC ONE (19:15)
[2022-10-10] MEDS ORDERED: fentaNYL INJ 100 MCG/2 ML AMP IVP ONE (19:15)
[2022-10-10 19:55] LABS: BILIRUBIN,URINE NEGATIVE (NEGATIVE); CLARITY,URINE CLEAR; COLOR,URINE YELLOW; GLUCOSE, URINE (UA) 3+ (NEGATIVE); KETONES,URINE NEGATIVE (NEGATIVE); LEUKOCYTE ESTERASE ,URINE NEGATIVE (NEGATIVE); NITRITE,URINE NEGATIVE (NEGATIVE); PH,URINE 5.5 (5-9); PROTEIN,URINE NEGATIVE (NEGATIVE)
[2022-10-10 20:16] LABS: BACTERIA,URINE NEGATIVE /HPF; WBC,URINE RARE /HPF
[2022-10-10] MEDS ORDERED: ONDA4TAB11 SL (20:36)
[2022-10-10 20:50] VITALS: BP 123/80
== END 2022-10-10 20:51 | disposition home or self-care (01) ==
LOC: EDUNIT# 17:38 → ER 17:41
DX: K85.90 Acute pancreatitis without necrosis or infection, unspecified (principal); E11.65 Type 2 diabetes mellitus with hyperglycemia; N28.9 Disorder of kidney and ureter, unspecified; F17.200 Nicotine dependence, unspecified, uncomplicated; Z79.4 Long term (current) use of insulin; Z91.14 Patient's other noncompliance with medication regimen; Z28.310 Unvaccinated for COVID-19
CPT/HCPCS: 36415; 80053; 81000; 82947; 83690; 83735; 85025; 86141

== ENCOUNTER 2022-11-18 16:09 | Emergency (ER) | payer MEDICAID ==
[~2022-11-18] VITALS: Ht 175.3 cm; Wt 106.6 kg
[~2022-11-18 16:09] MED LIST changes: +ONDA4TAB11 SL
[2022-11-18] MEDS ORDERED: fentaNYL INJ 100 MCG/2 ML AMP IVP ONE (16:30)
[2022-11-18] MEDS ORDERED: NS IV 1000 ML 1,000 ML IV SCH (16:30)
--- NOTE | 2022-11-18 16:30 | ED General ---
General Chief Complaint: Glucose Problems Stated Complaint: ELEV BLOOD SUGAR Source of Information: Patient, Family Exam Limitations: No Limitations History of Present Illness Date Seen by Provider: Nov 18, 2022 Time Seen by Provider: 16:17 Initial Comments 52-year-old male with history of type 2 diabetes mellitus, coronary artery dise ase, pancreatitis presents to the emergency department today for uncontrolled blood sugars and pancreatitis. He was reportedly seen in [facility] yesterday. They wanted to admit him but they "had no beds." He was ultimately discharged and sent here for further evaluation from his primary doctor today. His blood sugars were in the 600s there. He states he had previously well-controlled blood sugars but about 2 months ago he developed influenza and since then has had difficulty controlling his blood sugars. He has recently stopped taking Januvia. He continues to take metformin and is on short acting insulin 3 times a day as well as 36 units of what sounds to be Lantus at night. He also complains of some sharp stabbing chest pain in his left anterior chest that started this morning. It is been relatively constant through the day today without any radiation, aggravating or alleviating factors. He has never had similar pains in the past. No nausea or vomiting. He does endorse some lightheadedness and dizziness but mostly complains of epigastric abdominal pain. This is sharp stabbing and similar to previous episodes of pancreatitis. About 3 weeks ago he was admitted to the hospital at [facility] for about 4 or 5 days for pancreatitis and elevated blood sugars. He did have a CT completed yesterday and has the printed results and hand which was negative. Allergies and Home Medications Allergies Coded Allergies: gluten (Verified Allergy, Unknown, 10/10/22) hydrochlorothiazide (Verified Allergy, Unknown, 10/10/22) lisinopril (Verified Allergy, Unknown, 10/10/22) sitagliptin (Verified Adverse Reaction, Severe, Pancreatitis, 10/10/22) Patient Home Medication List Home Medication List Reviewed: Yes Albuterol Sulfate (Ventolin Hfa) 1 Puff Puff, 2 PUFF IH Q4H PRN for SHORTNESS OF BREATH, (Reported) Entered as Reported by: REGINALD DICKERSON on 01/08/22 1034 Aspirin (Aspirin EC) 81 Mg Tablet.dr, 81 MG PO DAILY, (Reported) Entered as Reported by: MARTINE LOWE on 11/05/19 1556 Atorvastatin Calcium (Atorvastatin Calcium) 80 Mg Tablet, 80 MG PO DAILY, (Reported) Entered as Reported by: MARIELLE PEREZ on 06/14/22 1220 Citalopram Hydrobromide (Citalopram HBr) 20 Mg Tablet, 20 MG PO HS, (Reported) Entered as Reported by: REGINALD DICKERSON on 01/08/22 103 Fenofibrate Nanocrystallized (Fenofibrate) 145 Mg Tablet, 145 MG PO DAILY, (Reported) Entered as Reported by: REGINALD DICKERSON on 01/08/22 103 Gabapentin (Gabapentin) 400 Mg Capsule, 400 MG PO BID, (Reported) Entered as Reported by: MARIELLE PEREZ on 06/14/22 1220 Hydrocodone/Acetaminophen (Hydrocodone-Acetamin 10-325 mg) 10 Mg-325 Mg Tablet, 1 EACH PO DAILY, (Reported) Entered as Reported by: REGINALD DICKERSON on 01/08/22 103 Hydrocodone/Acetaminophen (Hydrocodone-Acetamin 10-325 mg) 10 Mg-325 Mg Tablet, 1 EACH PO DAILY PRN for PAIN-MODERATE (5-7), (Reported) Entered as Reported by: MARIELLE PEREZ on 06/14/22 1220 Metformin HCl (Metformin HCl ER) 500 Mg Tab.er.24h, 1,000 MG PO BID, (Reported) Entered as Reported by: MARIELLE PEREZ on 06/14/22 1220 Metoprolol Succinate (Metoprolol Succinate) 25 Mg Tab.er.24h, 37.5 MG PO HS, (Reported) Entered as Reported by: REGINALD DICKERSON on 01/08/22 103 Multivitamin (Multivitamin) 1 Each Tablet, 1 EACH PO DAILY, (Reported) Entered as Reported by: REGINALD DICKERSON on 01/08/22 103 Omeprazole (Omeprazole) 40 Mg Capsule.dr, 40 MG PO HS, (Reported) Entered as Reported by: REGINALD DICKERSON on 01/08/22 103 Ondansetron (Ondansetron Odt) 4 Mg Tab.rapdis, 4 MG SL Q4H PRN for NAUSEA/VOMITING Prescribed by: FLORIN MACKEY on 10/10/222035 Sitagliptin Phosphate (Januvia) 100 Mg Tablet, 100 MG PO HS, (Reported) Entered as Reported by: REGINALD DICKERSON on 01/08/22 1031 Sodium Chloride (Sodium Chloride) 1 Gram Tab, 1 GM PO BID Prescribed by: NICOLE HALEY on 06/15/22 1116 Review of Systems Review of Systems Constitutional: dizziness EENTM: no symptoms reported Respiratory: no symptoms reported Cardiovascular: chest pain Gastrointestinal: abdominal pain Genitourinary: no symptoms reported Musculoskeletal: no symptoms reported Skin: no symptoms reported Psychiatric/Neurological: No Symptoms Reported Hematologic/Lymphatic: No Symptoms Reported Immunological/Allergic: no symptoms reported Past Geazmua-Bhdrwi-Ayoxeh Hx Patient Social History Tobacco Use?: Yes Use of E-Cig and/or Vaping dev: No Substance use?: No Alcohol Use?: No Seasonal Allergies Seasonal Allergies: No Past Medical History Surgery/Hospitalization HX: DM Type II, Graves DZ, HTN, Hyperlipidemia, Angina, COPD Surgeries: Yes (cardiac stent placement 11/05/2019) Abdominal, Cardiac, Coronary Stent, Tonsillectomy Respiratory: Yes COPD Currently Using CPAP: No Currently Using BIPAP: No Cardiac: Yes Coronary Artery Disease, High Cholesterol, Hypertension Neurological: No Genitourinary: No Gastrointestinal: Yes (abdominal hernia repaired) Gastroesophageal Reflux Musculoskeletal: No Endocrine: Yes Diabetes, Insulin dep, Diabetes, Non-Insulin dep HEENT: No Cancer: No Psychosocial: Yes Depression Integumentary: No Blood Disorders: No Family Medical History Reviewed Nursing Family Hx Cancer, CAD Under 55 Years Old Physical Exam Vital Signs Vital Signs - First Documented 11/18/22 16:17 Temp 36.8 Pulse 95 Resp 18 B/P (MAP) 142/83 (102) O2 Delivery Room Air Capillary Refill : Height, Weight, BMI Height: 5'9.00" Weight: 250lbs. 0oz. [id number]; 35.00 BMI Method:Stated General Appearance: No Apparent Distress, WD/WN HEENT: PERRL/EOMI, Normal ENT Inspection, Pharynx Normal Neck: Full Range of Motion, Normal Inspection, Non Tender, Supple Respiratory: Chest Non Tender, Lungs Clear, Normal Breath Sounds, No Accessory Muscle Use, No Respiratory Distress Cardiovascular: Regular Rate, Rhythm, No Murmur, Normal Peripheral Pulses Gastrointestinal: Normal Bowel Sounds, Soft, Tenderness (Tenderness palpation in the epigastric region with voluntary guarding. No rebound tenderness. No mass or megaly. No skin changes.) Back: Normal Inspection, No CVA Tenderness, No Vertebral Tenderness Extremity: Normal Capillary Refill, Normal Inspection, Non Tender, No Calf Tenderness, No Pedal Edema Neurologic/Psychiatric: Alert, Oriented x3, No Motor/Sensory Deficits Skin: Normal Color, Warm/Dry Lymphatic: No Adenopathy Progress/Results/Core Measures Suspected Sepsis SIRS Temperature: Pulse: Respiratory Rate: Laboratory Tests 11/18/22 16:32: White Blood Count 6.6 Blood Pressure / Mean: Laboratory Tests 11/18/22 16:32: Creatinine 1.11, Platelet Count 183, Total Bilirubin 0.3 Results/Orders Lab Results Laboratory Tests Test 11/18/22 16:21 11/18/22 16:32 11/18/22 16:54 Range/Units Glucometer 583 *H 70-110 MG/DL White Blood Count 6.6 4.3-11.0 10^3/uL Red Blood Count 4.53 4.30-5.52 10^6/uL Hemoglobin 14.0 13.3-17.7 g/dL Hematocrit 39 L 40-54 % Mean Corpuscular Volume 85 80-99 fL Mean Corpuscular Hemoglobin 31 25-34 pg Mean Corpuscular Hemoglobin Concent 36 32-36 g/dL Red Cell Distribution Width 12.6 10.0-14.5 % Platelet Count 183 130-400 10^3/uL Mean Platelet Volume 10.6 9.0-12.2 fL Immature Granulocyte % (Auto) 1 % Neutrophils (%) (Auto) 58 42-75 % Lymphocytes (%) (Auto) 34 12-44 % Monocytes (%) (Auto) 5 0-12 % Eosinophils (%) (Auto) 2 0-10 % Basophils (%) (Auto) 1 0-10 % Neutrophils # (Auto) 3.8 1.8-7.8 10^3/uL Lymphocytes # (Auto) 2.2 1.0-4.0 10^3/uL Monocytes # (Auto) 0.3 0.0-1.0 10^3/uL Eosinophils # (Auto) 0.1 0.0-0.3 10^3/uL Basophils # (Auto) 0.1 0.0-0.1 10^3/uL Immature Granulocyte # (Auto) 0.0 0.0-0.1 10^3/uL Sodium Level 130 L 135-145 MMOL/L Potassium Level 4.4 3.6-5.0 MMOL/L Chloride Level 95 L 98-107 MMOL/L Carbon Dioxide Level 22 21-32 MMOL/L Anion Gap 13 5-14 MMOL/L Blood Urea Nitrogen 16 7-18 MG/DL Creatinine 1.11 0.60-1.30 MG/DL Estimat Glomerular Filtration Rate 80 BUN/Creatinine Ratio 14 Glucose Level 689 *H 70-105 MG/DL Calcium Level 9.0 8.5-10.1 MG/DL Corrected Calcium 8.9 8.5-10.1 MG/DL Total Bilirubin 0.3 0.1-1.0 MG/DL Aspartate Amino Transf (AST/SGOT) 21 5-34 U/L Alanine Aminotransferase (ALT/SGPT) 39 0-55 U/L Alkaline Phosphatase 99 40-136 U/L Troponin I < 0.30 <0.30 NG/ML Total Protein 6.5 6.4-8.2 GM/DL Albumin 4.1 3.2-4.5 GM/DL Lipase 94 H 8-78 U/L Urine Color PALE YELLOW Urine Clarity CLEAR Urine pH 5.5 5-9 Urine Specific [place] <=1.005 1.016-1.022 Urine Protein NEGATIVE NEGATIVE Urine Glucose (UA) 3+ H NEGATIVE Urine Ketones NEGATIVE NEGATIVE Urine Nitrite NEGATIVE NEGATIVE Urine Bilirubin NEGATIVE NEGATIVE Urine Urobilinogen 0.2 < = 1.0 MG/DL Urine Leukocyte Esterase NEGATIVE NEGATIVE Urine RBC (Auto) NEGATIVE NEGATIVE Urine RBC NONE /HPF Urine WBC NONE /HPF Urine Squamous Epithelial Cells RARE /HPF Urine Crystals NONE /LPF Urine Bacteria NEGATIVE /HPF Urine Casts NONE /LPF Urine Mucus NEGATIVE /LPF Urine Culture Indicated NO My Orders Orders - ROMEO PEMBERTON DO Cbc With Automated Diff (11/18/22 16:24) Comprehensive Metabolic Panel (11/18/22 16:24) Lipase (11/18/22 16:24) Troponin I Fs (11/18/22 16:24) Ekg Tracing (11/18/22 16:24) Chest 1 View Ap/Pa Only (11/18/22 16:24) Ns Iv 1000 Ml (Sodium Chloride 0.9%) (11/18/22 16:30) Fentanyl Inj (Sublimaze Injection) (11/18/22 16:30) Beta Hydroxybutyrate (11/18/22 16:52) Ua Culture If Indicated (11/18/22 17:11) Insulin (Regular) Human (Novolin R (Per (11/18/22 17:15) Medications Given in ED Current Medications Medications Dose Ordered Sig/Moni Route Start Time Stop Time Status Last Admin Dose Admin Fentanyl Citrate 50 mcg ONCE ONCE IVP 11/18/22 16:30 11/18/22 16:31 DC 11/18/22 16:30 50 MCG Insulin Human Regular 10 unit ONCE ONCE SC 11/18/22 17:15 11/18/22 17:16 DC 11/18/22 17:20 10 UNIT Vital Signs/I&O 11/18/22 16:17 Temp 36.8 Pulse 95 Resp 18 B/P (MAP) 142/83 (102) O2 Delivery Room Air Capillary Refill : Departure Communication (Admissions) Obtain CMP to evaluate for acidosis, DKA, electrolyte abnormality, renal function. This is normal outside of hyperglycemia. No evidence for acidosis, anion gap is normal. As chest pain sort of troponin EKG read. He did for any evidence for ACS or ischemia he does have epigastric pain. His lipase yesterday was 150 in an outlying facility. It is significantly improved today. CT scan reviewed from outlying facility and negative. Does have significant hyperglycemia. No obvious infectious cause at this time. He is given subcutaneous insulin and IV fluids with dramatic improvement in his blood sugars at this time. This is a chronic problem for him post influenza about 2 months ago. He is in the process of obtaining endocrine and GI consultations. He does have a lab follow-up with his primary doctor later this week. 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 Referrals: NAVIN LANZA MD (PCP/Family) Primary Care Physician Patient Instructions: High Blood Sugar, Adult Add. Discharge Instructions: 's withIncrease your fluids at home. Maintain a clear liquid diet. Continue your insulin as previously prescribed I recommend you discuss your long-acting insulin to twice daily with your primary doctor. It is a good idea to get an endocrinology referral and follow-up in the near future. Please return to the emergency department for any severe pain that is not controlled by your pain medications at home, inability tolerate food or fluids or if your symptoms change in any way concerning to you. All discharge instructions reviewed with patient and/or family. Voiced understanding. ROMEO PEMBERTON DO Nov 18, 2022 16:30
[2022-11-18 16:46] LABS: BASOPHILS # (AUTO) 0.1 10^3/uL (0.0-0.1); BASOPHILS % (AUTO) 1 % (0-10); EOSINOPHILS # (AUTO) 0.1 10^3/uL (0.0-0.3); EOSINOPHILS % (AUTO) 2 % (0-10); HEMATOCRIT 39 % (40-54); LYMPHOCYTES # (AUTO) 2.2 10^3/uL (1.0-4.0); LYMPHOCYTES % (AUTO) 34 % (12-44); MEAN CORPUSCULAR HEMOGLOBIN 31 pg (25-34); MEAN CORPUSCULAR HGB CONC 36 g/dL (32-36); MEAN CORPUSCULAR VOLUME 85 fL (80-99); MEAN PLATELET VOLUME 10.6 fL (9.0-12.2); MONOCYTES # (AUTO) 0.3 10^3/uL (0.0-1.0); MONOCYTES % (AUTO) 5 % (0-12); NEUTROPHILS # (AUTO) 3.8 10^3/uL (1.8-7.8); NEUTROPHILS % (AUTO) 58 % (42-75); PLATELET COUNT 183 10^3/uL (130-400); WHITE BLOOD COUNT 6.6 10^3/uL (4.3-11.0)
--- NOTE | 2022-11-18 16:52 | Diagnostic Imaging Report ---
CLINICAL INDICATION: Patient with elevated blood sugar. EXAM: Portable chest x-ray upright view. COMPARISON: Chest x-ray dated 06/13/2022. FINDINGS: Lungs/pleura: There are increased lung markings in both lung bases which may be related to atelectasis. Otherwise, lungs are clear. There is no interval lung infiltrate. There is no pneumothorax. There is no pleural effusion. Mediastinum: Unremarkable. Pulmonary vasculature: Unremarkable. Heart: Unremarkable. Bones/extrathoracic soft tissue: There are degenerative spurs involving the thoracic spine. IMPRESSION: There is no radiographic evidence of acute cardiopulmonary process. Dictated by: Dictated on workstation # [id number]
[2022-11-18 17:06] LABS: CARBON DIOXIDE 22 MMOL/L (21-32); CHLORIDE 95 MMOL/L (98-107); POTASSIUM 4.4 MMOL/L (3.6-5.0); SODIUM 130 MMOL/L (135-145)
[2022-11-18 17:07] LABS: GLUCOSE 689 MG/DL (70-105)
[2022-11-18 17:10] LABS: ALANINE AMINOTRANSFERASE 39 U/L (0-55); ALBUMIN 4.1 GM/DL (3.2-4.5); ALKALINE PHOSPHATASE 99 U/L (40-136); BILIRUBIN,TOTAL 0.3 MG/DL (0.1-1.0); BUN/CREATININE RATIO 14; CREATININE SERUM 1.11 MG/DL (0.60-1.30); GFR ESTIMATED 80; LIPASE 94 U/L (8-78); TOTAL PROTEIN 6.5 GM/DL (6.4-8.2)
[2022-11-18] MEDS ORDERED: inSUlin (REGULAR) HUMAN 1 UNIT/0.01 ML (CHARGE PER UNIT) SC ONE (17:15)
[2022-11-18 17:16] LABS: BILIRUBIN,URINE NEGATIVE (NEGATIVE); CLARITY,URINE CLEAR; COLOR,URINE PALE YELLOW; GLUCOSE, URINE (UA) 3+ (NEGATIVE); KETONES,URINE NEGATIVE (NEGATIVE); LEUKOCYTE ESTERASE ,URINE NEGATIVE (NEGATIVE); NITRITE,URINE NEGATIVE (NEGATIVE); PH,URINE 5.5 (5-9); PROTEIN,URINE NEGATIVE (NEGATIVE)
[2022-11-18 17:20] LABS: BACTERIA,URINE NEGATIVE /HPF; SQUAMOUS EPITHELIAL CELL,UR RARE /HPF
[2022-11-18 18:05] VITALS: BP 141/80
== END 2022-11-18 18:05 | disposition home or self-care (01) ==
LOC: EDUNIT# 16:09 → ER FS 16:11
DX: E11.65 Type 2 diabetes mellitus with hyperglycemia (principal); Z28.310 Unvaccinated for COVID-19; Z79.84 Long term (current) use of oral hypoglycemic drugs; Z79.4 Long term (current) use of insulin
CPT/HCPCS: 36415; 71045; 80053; 81000; 82010; 82947; 83690; 84484; 85025; 93005

== ENCOUNTER 2022-12-04 15:48 | Emergency (ER) | payer MEDICAID ==
[2022-12-04] MEDS ORDERED: NS IV 1000 ML 1,000 ML IV SCH (16:00)
[2022-12-04 16:09] LABS: BASOPHILS # (AUTO) 0.1 10^3/uL (0.0-0.1); BASOPHILS % (AUTO) 1 % (0-10); EOSINOPHILS # (AUTO) 0.1 10^3/uL (0.0-0.3); EOSINOPHILS % (AUTO) 1 % (0-10); HEMATOCRIT 43 % (40-54); HEMOGLOBIN 15.6 g/dL (13.3-17.7); LYMPHOCYTES # (AUTO) 3.1 10^3/uL (1.0-4.0); LYMPHOCYTES % (AUTO) 29 % (12-44); MEAN CORPUSCULAR HEMOGLOBIN 31 pg (25-34); MEAN CORPUSCULAR HGB CONC 37 g/dL (32-36); MEAN CORPUSCULAR VOLUME 84 fL (80-99); MEAN PLATELET VOLUME 10.7 fL (9.0-12.2); MONOCYTES # (AUTO) 0.5 10^3/uL (0.0-1.0); MONOCYTES % (AUTO) 4 % (0-12); NEUTROPHILS # (AUTO) 6.7 10^3/uL (1.8-7.8); NEUTROPHILS % (AUTO) 64 % (42-75); PLATELET COUNT 243 10^3/uL (130-400); WHITE BLOOD COUNT 10.4 10^3/uL (4.3-11.0)
[2022-12-04 16:11] LABS: BILIRUBIN,URINE NEGATIVE (NEGATIVE); CLARITY,URINE CLEAR; COLOR,URINE YELLOW; GLUCOSE, URINE (UA) 3+ (NEGATIVE); KETONES,URINE NEGATIVE (NEGATIVE); LEUKOCYTE ESTERASE ,URINE NEGATIVE (NEGATIVE); NITRITE,URINE NEGATIVE (NEGATIVE); PROTEIN,URINE NEGATIVE (NEGATIVE)
--- NOTE | 2022-12-04 16:13 | Diagnostic Imaging Report ---
INDICATION: SOB. COMPARISON: 11/18/2022. FINDINGS: Single frontal view of the chest demonstrates normal heart size and pulmonary vascularity. The lungs are well aerated and clear. No large pleural effusion or pneumothorax is seen. The visualized osseous structures show no acute abnormalities. IMPRESSION: 1. No acute cardiopulmonary process. Dictated by: Dictated on workstation # [id number]
[2022-12-04 16:26] LABS: BACTERIA,URINE NEGATIVE /HPF; RBC,URINE RARE /HPF; WBC,URINE 0-2 /HPF
[2022-12-04 16:28] LABS: CARBON DIOXIDE 21 MMOL/L (21-32); CHLORIDE 96 MMOL/L (98-107); POTASSIUM 3.8 MMOL/L (3.6-5.0); SODIUM 132 MMOL/L (135-145)
[2022-12-04 16:29] LABS: ALANINE AMINOTRANSFERASE 34 U/L (0-55); ALBUMIN 4.6 GM/DL (3.2-4.5); ALKALINE PHOSPHATASE 105 U/L (40-136); BILIRUBIN,TOTAL 0.2 MG/DL (0.1-1.0); BUN/CREATININE RATIO 18; CALCIUM 10.1 MG/DL (8.5-10.1); CREATININE SERUM 0.87 MG/DL (0.60-1.30); GFR ESTIMATED 104; LIPASE 72 U/L (8-78); TOTAL PROTEIN 7.3 GM/DL (6.4-8.2)
[2022-12-04 16:32] LABS: GLUCOSE 406 MG/DL (70-105)
[2022-12-04] MEDS ORDERED: inSUlin (REGULAR) HUMAN 1 UNIT/0.01 ML (CHARGE PER UNIT) SC ONE (17:00)
--- NOTE | 2022-12-04 17:04 | ED General ---
General Chief Complaint: Glucose Problems Stated Complaint: HIGH BLOOD SUGAR,SOB, DIZZINESS, FATIGUE Nursing Triage Note: Patient presents to the ED from [facility] with c/o elevated blood glucose, dizziness, and shortness of breath. Patient reports he was seeing his PCP for routine follow up and was sent to the ED due to elevated blood sugar. Patient reports he has these symptoms intermittently for the past 3 months. States his insulin was adjusted 2 days ago. Source of Information: Patient Exam Limitations: No Limitations History of Present Illness Date Seen by Provider: Dec 04, 2022 Time Seen by Provider: 16:05 Initial Comments 52-year-old male presents to the emergency department today from the [facility] clinic for hyperglycemia. This has been a longstanding issue for the last 3 months since he had the flu. He was previously well controlled on metformin alone however since that illness he has had significant increase in his blood sugars and difficulty controlling them. He states daily his blood sugars range from 4- 600. He generally feels unwell and has lost significant amount of weight since that time. His daily increased thirst and increased urination. No fevers or chills. He does have some chronic shortness of breath since this as well. No chest pain. His insulin was increased to 15 units with meals 2 days ago. He also had an increase in his basal insulin to 40 units at bedtime. He was referred to endocrinology a couple of weeks ago but they have not gotten a call back. Allergies and Home Medications Allergies Coded Allergies: gluten (Verified Allergy, Unknown, 10/10/22) hydrochlorothiazide (Verified Allergy, Unknown, 10/10/22) lisinopril (Verified Allergy, Unknown, 10/10/22) sitagliptin (Verified Adverse Reaction, Severe, Pancreatitis, 10/10/22) Patient Home Medication List Home Medication List Reviewed: Yes Albuterol Sulfate (Ventolin Hfa) 1 Puff Puff, 2 PUFF IH Q4H PRN for SHORTNESS OF BREATH, (Reported) Entered as Reported by: REGINALD DICKERSON on 01/08/22 1034 Aspirin (Aspirin EC) 81 Mg Tablet.dr, 81 MG PO DAILY, (Reported) Entered as Reported by: MARTINE LOWE on 11/05/19 1556 Atorvastatin Calcium (Atorvastatin Calcium) 80 Mg Tablet, 80 MG PO DAILY, (Reported) Entered as Reported by: MARIELLE PEREZ on 06/14/22 1220 Citalopram Hydrobromide (Citalopram HBr) 20 Mg Tablet, 20 MG PO HS, (Reported) Entered as Reported by: REGINALD DICKERSON on 01/08/22 103 Fenofibrate Nanocrystallized (Fenofibrate) 145 Mg Tablet, 145 MG PO DAILY, (Reported) Entered as Reported by: REGINALD DICKERSON on 01/08/22 103 Gabapentin (Gabapentin) 400 Mg Capsule, 400 MG PO BID, (Reported) Entered as Reported by: MARIELLE PEREZ on 06/14/22 1220 Hydrocodone/Acetaminophen (Hydrocodone-Acetamin 10-325 mg) 10 Mg-325 Mg Tablet, 1 EACH PO DAILY, (Reported) Entered as Reported by: REGINALD DICKERSON on 01/08/22 103 Hydrocodone/Acetaminophen (Hydrocodone-Acetamin 10-325 mg) 10 Mg-325 Mg Tablet, 1 EACH PO DAILY PRN for PAIN-MODERATE (5-7), (Reported) Entered as Reported by: MARIELLE PEREZ on 06/14/22 1220 Metformin HCl (Metformin HCl ER) 500 Mg Tab.er.24h, 1,000 MG PO BID, (Reported) Entered as Reported by: MARIELLE PEREZ on 06/14/22 1220 Metoprolol Succinate (Metoprolol Succinate) 25 Mg Tab.er.24h, 37.5 MG PO HS, (Reported) Entered as Reported by: REGINALD DICKERSON on 01/08/22 103 Multivitamin (Multivitamin) 1 Each Tablet, 1 EACH PO DAILY, (Reported) Entered as Reported by: REGINALD DICKERSON on 01/08/22 103 Omeprazole (Omeprazole) 40 Mg Capsule.dr, 40 MG PO HS, (Reported) Entered as Reported by: REGINALD DICKERSON on 01/08/22 103 Ondansetron (Ondansetron Odt) 4 Mg Tab.rapdis, 4 MG SL Q4H PRN for NAUSEA/VOMITING Prescribed by: FLORIN MACKEY on 10/10/222035 Sitagliptin Phosphate (Januvia) 100 Mg Tablet, 100 MG PO HS, (Reported) Entered as Reported by: REGINALD DICKERSON on 01/08/22 103 Sodium Chloride (Sodium Chloride) 1 Gram Tab, 1 GM PO BID Prescribed by: NICOLE HALEY on 06/15/22 1116 Review of Systems Review of Systems Constitutional: weakness, weight loss EENTM: no symptoms reported Respiratory: short of breath Cardiovascular: no symptoms reported Gastrointestinal: abdominal pain Genitourinary: frequency Musculoskeletal: no symptoms reported Skin: no symptoms reported Psychiatric/Neurological: No Symptoms Reported Hematologic/Lymphatic: No Symptoms Reported Immunological/Allergic: no symptoms reported Past Jpjpiwy-Bqgddh-Fkhkkg Hx Patient Social History Tobacco Use?: Yes Tobacco type used: Cigarettes Smoking Status: Current Everyday Smoker Substance use?: No Alcohol Use?: No Pt feels they are or have been: No Immunizations Up To Date First/Initial COVID19 Vaccinat: Denies Seasonal Allergies Seasonal Allergies: No Past Medical History Surgery/Hospitalization HX: DM Type II, Graves DZ, HTN, Hyperlipidemia, Angina, COPD Surgeries: Yes (cardiac stent placement 11/05/2019) Abdominal, Cardiac, Coronary Stent, Tonsillectomy Respiratory: Yes COPD Currently Using CPAP: No Currently Using BIPAP: No Cardiac: Yes Coronary Artery Disease, High Cholesterol, Hypertension Neurological: No Genitourinary: No Gastrointestinal: Yes (abdominal hernia repaired) Gastroesophageal Reflux Musculoskeletal: No Endocrine: Yes Diabetes, Insulin dep, Diabetes, Non-Insulin dep HEENT: No Cancer: No Psychosocial: Yes Depression Integumentary: No Blood Disorders: No Family Medical History Cancer, CAD Under 55 Years Old Physical Exam Vital Signs Vital Signs - First Documented 12/04/22 15:54 Temp 36.0 Pulse 90 Resp 16 B/P (MAP) 120/92 (101) Pulse Ox 98 O2 Delivery Room Air Capillary Refill : Less Than 3 Seconds Height, Weight, BMI Height: 5'9.00" Weight: 250lbs. 0oz. [id number]; 34.00 BMI Method:Stated General Appearance: No Apparent Distress, WD/WN HEENT: Normal ENT Inspection, Pharynx Normal Neck: Full Range of Motion, Normal Inspection, Non Tender, Supple Respiratory: Chest Non Tender, Lungs Clear, Normal Breath Sounds, No Accessory Muscle Use, No Respiratory Distress Cardiovascular: Regular Rate, Rhythm, No Edema, No Gallop, No JVD, No Murmur, Normal Peripheral Pulses Gastrointestinal: Normal Bowel Sounds, No Organomegaly, No Pulsatile Mass, Non Tender, Soft Back: Normal Inspection, No Vertebral Tenderness Extremity: Normal Capillary Refill, Normal Inspection, Non Tender, No Calf Tenderness, No Pedal Edema Neurologic/Psychiatric: Alert, Oriented x3, No Motor/Sensory Deficits Skin: Normal Color, Warm/Dry Lymphatic: No Adenopathy Progress/Results/Core Measures Suspected Sepsis SIRS Temperature: Pulse: 90 Respiratory Rate: 16 Laboratory Tests 12/04/22 16:01: White Blood Count 10.4 Blood Pressure 120 /92 Mean: 101 Laboratory Tests 12/04/22 16:01: Creatinine 0.87, Platelet Count 243, Total Bilirubin 0.2 Results/Orders Lab Results Laboratory Tests Test 12/04/22 15:57 12/04/22 16:01 12/04/22 16:05 12/04/22 17:26 Range/Units Glucometer 413 *H 314 H 70-110 MG/DL White Blood Count 10.4 4.3-11.0 10^3/uL Red Blood Count 5.09 4.30-5.52 10^6/uL Hemoglobin 15.6 13.3-17.7 g/dL Hematocrit 43 40-54 % Mean Corpuscular Volume 84 80-99 fL Mean Corpuscular Hemoglobin 31 25-34 pg Mean Corpuscular Hemoglobin Concent 37 H 32-36 g/dL Red Cell Distribution Width 12.7 10.0-14.5 % Platelet Count 243 130-400 10^3/uL Mean Platelet Volume 10.7 9.0-12.2 fL Immature Granulocyte % (Auto) 1 % Neutrophils (%) (Auto) 64 42-75 % Lymphocytes (%) (Auto) 29 12-44 % Monocytes (%) (Auto) 4 0-12 % Eosinophils (%) (Auto) 1 0-10 % Basophils (%) (Auto) 1 0-10 % Neutrophils # (Auto) 6.7 1.8-7.8 10^3/uL Lymphocytes # (Auto) 3.1 1.0-4.0 10^3/uL Monocytes # (Auto) 0.5 0.0-1.0 10^3/uL Eosinophils # (Auto) 0.1 0.0-0.3 10^3/uL Basophils # (Auto) 0.1 0.0-0.1 10^3/uL Immature Granulocyte # (Auto) 0.1 0.0-0.1 10^3/uL Sodium Level 132 L 135-145 MMOL/L Potassium Level 3.8 3.6-5.0 MMOL/L Chloride Level 96 L 98-107 MMOL/L Carbon Dioxide Level 21 21-32 MMOL/L Anion Gap 15 H 5-14 MMOL/L Blood Urea Nitrogen 16 7-18 MG/DL Creatinine 0.87 0.60-1.30 MG/DL Estimat Glomerular Filtration Rate 104 BUN/Creatinine Ratio 18 Glucose Level 406 *H 70-105 MG/DL Calcium Level 10.1 8.5-10.1 MG/DL Corrected Calcium 8.5-10.1 MG/DL Total Bilirubin 0.2 0.1-1.0 MG/DL Aspartate Amino Transf (AST/SGOT) 20 5-34 U/L Alanine Aminotransferase (ALT/SGPT) 34 0-55 U/L Alkaline Phosphatase 105 40-136 U/L Total Protein 7.3 6.4-8.2 GM/DL Albumin 4.6 H 3.2-4.5 GM/DL Lipase 72 8-78 U/L Urine Color YELLOW Urine Clarity CLEAR Urine pH 6.0 5-9 Urine Specific [place] 1.010 L 1.016-1.022 Urine Protein NEGATIVE NEGATIVE Urine Glucose (UA) 3+ H NEGATIVE Urine Ketones NEGATIVE NEGATIVE Urine Nitrite NEGATIVE NEGATIVE Urine Bilirubin NEGATIVE NEGATIVE Urine Urobilinogen 0.2 < = 1.0 MG/DL Urine Leukocyte Esterase NEGATIVE NEGATIVE Urine RBC (Auto) NEGATIVE NEGATIVE Urine RBC RARE /HPF Urine WBC 0-2 /HPF Urine Crystals NONE /LPF Urine Bacteria NEGATIVE /HPF Urine Casts NONE /LPF Urine Mucus NEGATIVE /LPF Urine Culture Indicated NO My Orders Orders - ROMEO PEMBERTON DO Cbc With Automated Diff (12/04/22 15:55) Comprehensive Metabolic Panel (12/04/22 15:55) Beta Hydroxybutyrate (12/04/22 15:55) Ua Culture If Indicated (12/04/22 15:55) Lipase (12/04/22 15:55) Ns Iv 1000 Ml (Sodium Chloride 0.9%) (12/04/22 16:00) Chest 1 View Ap/Pa Only (12/04/22 15:57) Insulin (Regular) Human (Novolin R (Per (12/04/22 17:00) Medications Given in ED Vital Signs/I&O 12/04/22 12/04/22 15:54 17:35 Temp 36.0 36.0 Pulse 90 88 Resp 16 16 B/P (MAP) 120/92 (101) 126/79 Pulse Ox 98 98 O2 Delivery Room Air Room Air 12/05/22 00:00 Intake Total 1000 ml Balance 1000 ml Capillary Refill : Less Than 3 Seconds Blood Pressure Mean: 101 Departure Communication (Admissions) The patient is hemodynamically stable. He has chronic hyperglycemia over the last 3 months and is working with his primary care doctor to treat them. He has generalized weakness and weight loss related to chronic hyperglycemia at this time however his weight seems to be stable from his previous visit here. Sugar is in the low 400s on arrival which overall is improved from his previous readings that were all over 600. He complains of some epigastric pain which he is also had for the last 3 months. His lipase is negative, LFTs are normal. His electrolytes are not really concerning and likely not contributing to his symptoms. No evidence for anemia or infection at this time. Chest x-ray is clear as he is complaining of some chronic shortness of breath since he had the flu 3 months ago as well. He believes his pancreatitis was caused by Januvia but it also started after a bout of influenza. There is no evidence for acidosis, DKA at this time and he has otherwise normal vital signs. I spoke with endocrinology in [facility] and got the patient an appointment on 12/13 at 2:30 in the afternoon. He had been having trouble getting call for a follow- up. He will continue to work with his primary doctor, continue his home insulin regimen and he is discharged in stable condition. Impression Primary Impression: Hyperglycemia Additional Impression: Fatigue Qualified Codes: R53.83 - Other fatigue Disposition: HOME, SELF-CARE Condition: Improved Departure-Patient Inst. Referrals: NAVIN LANZA MD (PCP/Family) Primary Care Physician Patient Instructions: High Blood Sugar, Adult Add. Discharge Instructions: Please keep your appointment with the endocrine specialist on December 13 at 230 in [facility]. I have given you a paper with phone number, address and provider name. This is an endocrine specialist and should go long way in helping further manage her blood sugars. Overall your blood sugars are trending down. Continue to work with your primary physician for insulin management. Return to the emergency department for any severe concerns. All discharge instructions reviewed with patient and/or family. Voiced understanding. ROMEO PEMBERTON DO Dec 04, 2022 17:04
[2022-12-04 17:35] VITALS: BP 126/79
== END 2022-12-04 17:35 | disposition home or self-care (01) ==
LOC: EDUNIT# 15:48 → ER FS 15:50
DX: E11.65 Type 2 diabetes mellitus with hyperglycemia (principal); F17.210 Nicotine dependence, cigarettes, uncomplicated; Z79.4 Long term (current) use of insulin; Z28.310 Unvaccinated for COVID-19
CPT/HCPCS: 36415; 71045; 80053; 81000; 82010; 82947; 83690; 85025

== ENCOUNTER → 2023-06-12 | Outpatient (CLI) | payer MEDICARE, OTHER ==
--- NOTE | 2023-06-12 12:49 | Diagnostic Imaging Report ---
EXAMINATION: Magnetic resonance imaging of the right knee without intravenous contrast. DATE: June 12, 2023. COMPARISON: Bilateral knee radiographs April 02, 2021. INDICATION: 52-year-old male, right lateral knee pain. TECHNIQUE: Multiplanar, multisequence noncontrast enhanced MR imaging was accomplished. FINDINGS: MENISCI: There is signal in the medial meniscus not meeting MRI criteria for diagnosis of tear. The medial meniscus is intact. There is a longitudinal horizontal type tear involving the anterior horn, body, and posterior horn of the lateral meniscus. LIGAMENTS AND TENDONS: The anterior and posterior cruciate ligaments are intact. The medial collateral ligament is intact. The iliotibial band, mid third lateral capsular ligament, fibular collateral ligament, biceps femoris tendon and conjoined tendon are intact. The quadriceps tendon and patella ligament are intact. There is degenerative type enthesopathy at the distal quadriceps tendon insertion. JOINT: There is approximately 25% cartilage loss of the inferior aspect of the femoral trochlea with mildly irregular contour of the surface of the cartilage. There is no additional identified cartilage defect . BONE: There is unremarkable bone marrow signal. Specifically, negative for fracture, osteomyelitis, osteonecrosis, or marrow replacing process. BURSAE AND SOFT TISSUES: No Gilliam's cyst. IMPRESSION: 1. Longitudinal horizontal type tear of the anterior horn, body, and posterior horn of the lateral meniscus. Intact medial meniscus. 2. Intact anterior and posterior cruciate ligaments. Additional ligaments and tendons are intact. 3. Mild patellofemoral compartment osteoarthritis without knee joint effusion. 4. No acute fracture, bone contusion, or evidence of osteonecrosis. Dictated by: Dictated on workstation # [id number]
== END ==
LOC: RAD 07:44
PROVIDERS: ATTEND Nurse Practitioner
DX: S83.281A Other tear of lateral meniscus, current injury, right knee, initial encounter (principal); S82.121A Displaced fracture of lateral condyle of right tibia, initial encounter for closed fracture; M17.11 Unilateral primary osteoarthritis, right knee; X58.XXXA Exposure to other specified factors, initial encounter
CPT/HCPCS: 73721

== ENCOUNTER 2023-08-13 14:21 | Emergency (ER) | payer MEDICARE, OTHER ==
[~2023-08-13] VITALS: Ht 175 cm; Wt 99.0 kg
[~2023-08-13 14:21] MED LIST changes: -GABA-490 PO; +GABA-491 PO
[2023-08-13] MEDS ORDERED: KETOROLAC INJ 30 MG/ML VIAL IM STA (14:37)
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
[2023-08-13 14:44] LABS: BASOPHILS # (AUTO) 0.1 10^3/uL (0.0-0.1); BASOPHILS % (AUTO) 1 % (0-10); EOSINOPHILS # (AUTO) 0.2 10^3/uL (0.0-0.3); EOSINOPHILS % (AUTO) 2 % (0-10); HEMATOCRIT 41 % (40-54); HEMOGLOBIN 14.3 g/dL (13.3-17.7); LYMPHOCYTES # (AUTO) 2.8 10^3/uL (1.0-4.0); LYMPHOCYTES % (AUTO) 32 % (12-44); MEAN CORPUSCULAR HEMOGLOBIN 30 pg (25-34); MEAN CORPUSCULAR HGB CONC 35 g/dL (32-36); MEAN CORPUSCULAR VOLUME 86 fL (80-99); MEAN PLATELET VOLUME 10.1 fL (9.0-12.2); MONOCYTES # (AUTO) 0.4 10^3/uL (0.0-1.0); MONOCYTES % (AUTO) 4 % (0-12); NEUTROPHILS # (AUTO) 5.3 10^3/uL (1.8-7.8); NEUTROPHILS % (AUTO) 61 % (42-75); PLATELET COUNT 227 10^3/uL (130-400); WHITE BLOOD COUNT 8.7 10^3/uL (4.3-11.0)
[2023-08-13 15:04] LABS: BUN/CREATININE RATIO 14; CARBON DIOXIDE 24 MMOL/L (21-32); CHLORIDE 100 MMOL/L (98-107); GFR ESTIMATED 81; POTASSIUM 3.9 MMOL/L (3.6-5.0); SODIUM 137 MMOL/L (135-145)
[2023-08-13 15:05] LABS: ACETAMINOPHEN < 10 UG/ML (10-30); ALANINE AMINOTRANSFERASE 38 U/L (0-55); ALBUMIN 4.8 GM/DL (3.2-4.5); ALKALINE PHOSPHATASE 73 U/L (40-136); BILIRUBIN,TOTAL 0.2 MG/DL (0.1-1.0); CALCIUM 9.6 MG/DL (8.5-10.1); GLUCOSE 267 MG/DL (70-105); SALICYLATE < 0.3 MG/DL (5.0-20.0); TOTAL PROTEIN 7.5 GM/DL (6.4-8.2)
[2023-08-13 16:14] LABS: BILIRUBIN,URINE NEGATIVE (NEGATIVE); CLARITY,URINE CLEAR; COLOR,URINE YELLOW; GLUCOSE, URINE (UA) 1+ (NEGATIVE); KETONES,URINE TRACE (NEGATIVE); LEUKOCYTE ESTERASE ,URINE 1+ (NEGATIVE); NITRITE,URINE NEGATIVE (NEGATIVE); PH,URINE 6.5 (5-9); PROTEIN,URINE NEGATIVE (NEGATIVE)
[2023-08-13 16:26] LABS: AMPHETAMINE SCREEN, URINE NEGATIVE (NEGATIVE); BARBITURATE SCREEN URINE NEGATIVE (NEGATIVE); CANNABINOID SCREEN, URINE POSITIVE (NEGATIVE); COCAINE SCREEN URINE NEGATIVE (NEGATIVE); METHADONE STAT NEGATIVE (NEGATIVE); OPIATE SCREEN URINE NEGATIVE (NEGATIVE); OXYCODONE STAT POSITIVE (NEGATIVE); PROPOXYPHENE STAT NEGATIVE (NEGATIVE); TRICYCLIC ANTIDEPRESSANTS SCRE NEGATIVE (NEGATIVE)
[2023-08-13 16:27] LABS: BACTERIA,URINE MODERATE /HPF; SQUAMOUS EPITHELIAL CELL,UR RARE /HPF; WBC,URINE 25-50 /HPF
[2023-08-13] MEDS ORDERED: Sulfamethoxazole/Trimethoprim DS TABLET PO STA (16:35)
[2023-08-13] MEDS ORDERED: SULF1TAB38 PO (16:37)
[2023-08-13 16:47] VITALS: BP 140/88
== END 2023-08-13 16:47 ==
LOC: EDUNIT# 14:21 → ER FS 14:22
DX: T40.2X2A Poisoning by other opioids, intentional self-harm, initial encounter (principal); S50.812A Abrasion of left forearm, initial encounter; R82.71 Bacteriuria; M54.9 Dorsalgia, unspecified; G89.29 Other chronic pain; D72.829 Elevated white blood cell count, unspecified; F17.210 Nicotine dependence, cigarettes, uncomplicated; X58.XXXA Exposure to other specified factors, initial encounter
CPT/HCPCS: 36415; 80053; 80306; 81000; 85025; 87088; 93005; 99284; G0480 ×3; 80320; 80329